=== PATIENT | female | born 1970 | race Caucasian/White ===

== ENCOUNTER → 2017-12-21 10:28 | Outpatient (CLI) | payer OTHER, SELFPAY ==
--- NOTE | 2017-12-21 10:37 | BI_ITS ---
MAMMOGRAPHY - BILATERAL SCREENING REASON FOR EXAM: Female, 47 years old. Routine annual screening examination. PERTINENT HISTORY: Non-contributory. TECHNIQUE: Digital bilateral breast ranjith (3D mammographic acquisition) in the CC and MLO projections. 2-D mediolateral oblique (MLO) and craniocaudad (CC) views of both breasts were obtained. CAD: Full Field Digital Mammography with Computer Added Detection was performed. COMPARISON: No comparison mammograms available at this time. If any prior films become available, an addendum to this report can be generated. FINDINGS: Breast Composition: The breasts are heterogeneously dense, which may obscure small masses. There are no dominant masses or suspicious calcifications. No other significant abnormalities are identified. BI/SCREENING MAMM (CAD), BILAT IMPRESSION: Negative screening mammogram. Yearly followup mammogram recommended. (A) ASSESSMENT CATEGORY: Approximately 10% of breast cancers are not detected by mammography. A normal mammogram should not delay biopsy of a clinically suspicious abnormality. [id number] Electronically Signed: Anival Andino MD at 11:28 EST Tel [phone], Service support ,
== END ==
PROVIDERS: PCP Internal Medicine; Visit Provider Internal Medicine
DX: Z12.31 Encounter for screening mammogram for malignant neoplasm of breast (principal)
CPT/HCPCS: 77063; 77067

== ENCOUNTER 2020-01-02 10:04 | Outpatient (RCR) | payer OTHER, SELFPAY | END 2020-01-13 23:59 | LOC: EMPH 10:04 | PROVIDERS: PCP Internal Medicine; Referring Provider Family Medicine Geriatric Medicine; Visit Provider Family Medicine Geriatric Medicine | DX: Z03.818 Encounter for observation for suspected exposure to other biological agents ruled out (principal) | CPT/HCPCS: 87426 ==

== ENCOUNTER 2020-02-05 10:44 | Outpatient (RCR) | payer OTHER, SELFPAY | END 2020-02-13 23:59 | LOC: EMPH 10:44 | PROVIDERS: PCP Internal Medicine; Referring Provider Family Medicine Geriatric Medicine; Visit Provider Family Medicine Geriatric Medicine | DX: Z03.818 Encounter for observation for suspected exposure to other biological agents ruled out (principal) | CPT/HCPCS: 87426 ==

== ENCOUNTER 2020-02-26 12:23 | Outpatient (RCR) | payer OTHER, SELFPAY | END 2020-03-15 23:59 | LOC: EMPH 12:23 | PROVIDERS: PCP Internal Medicine; Referring Provider Family Medicine Geriatric Medicine; Visit Provider Family Medicine Geriatric Medicine | DX: Z03.818 Encounter for observation for suspected exposure to other biological agents ruled out (principal) | CPT/HCPCS: 87426 ==

== ENCOUNTER 2020-03-26 10:45 | Outpatient (RCR) | payer OTHER, SELFPAY | END 2020-04-12 23:59 | LOC: EMPH 10:45 | PROVIDERS: PCP Internal Medicine; Referring Provider Family Medicine Geriatric Medicine; Visit Provider Family Medicine Geriatric Medicine | DX: Z03.818 Encounter for observation for suspected exposure to other biological agents ruled out (principal) | CPT/HCPCS: 87426 ==

== ENCOUNTER 2020-08-11 10:57 | Outpatient (RCR) | payer OTHER, SELFPAY | END 2020-08-12 23:59 | LOC: EMPH 10:57 | PROVIDERS: PCP Internal Medicine; Visit Provider Family Medicine Geriatric Medicine | DX: Z03.818 Encounter for observation for suspected exposure to other biological agents ruled out (principal) | CPT/HCPCS: 87426 ==

== ENCOUNTER 2020-10-26 12:24 | Outpatient (RCR) | payer OTHER, SELFPAY | END 2020-11-12 23:59 | LOC: EMPH 12:24 | PROVIDERS: PCP Internal Medicine; Referring Provider Family Medicine Geriatric Medicine; Visit Provider Family Medicine Geriatric Medicine | DX: Z03.818 Encounter for observation for suspected exposure to other biological agents ruled out (principal) | CPT/HCPCS: 87426 ==

== ENCOUNTER 2021-02-04 11:34 | Outpatient (RCR) | payer OTHER, SELFPAY | END 2021-02-12 23:59 | LOC: EMPH 11:34 | PROVIDERS: PCP Internal Medicine; Referring Provider Family Medicine Geriatric Medicine; Visit Provider Family Medicine Geriatric Medicine | DX: Z03.818 Encounter for observation for suspected exposure to other biological agents ruled out (principal) | CPT/HCPCS: 87426; 87635; U0003 ==

== ENCOUNTER → 2021-08-20 | Outpatient (CLI) | payer OTHER, SELFPAY ==
[2021-08-20 10:41] LABS: AST(SGOT) 23 U/L (15-37); Alanine Aminotransfer ALT/SGPT 26 U/L (13-56); Albumin, Serum 3.7 g/dL (3.2-5.0); Alkaline Phosphatase 63 U/L (45-117); Anion Gap 6 (5-15); BUN 15 mg/dL (7-18); BUN/Creat Ratio 19.5 RATIO (10-20); Calcium,Total 9.1 mg/dL (8.5-10.1); Chloride 103 mmol/L (98-107); Cholesterol 172 mg/dL (200); Creatinine, Serum 0.77 mg/dL (0.55-1.02); EST Glomerular Filtration Rate 85 mL/min (>60); Est Glom Filt Rate - Afr Amer 103 mL/min (>60); Globulin 3.7 g/dL (2.2-4.2); Glucose 93 mg/dL (74-106); High Density Lipoprotein 48 mg/dL; Potassium 4.1 mmol/L (3.5-5.1); Protein, Total 7.4 g/dL (6.4-8.2); Sodium Level 136 mmol/L (136-145); Triglycerides 236 mg/dL; Very Low Density Lipoprotein 47 mg/dL (5-40)
[2021-08-20 12:34] LABS: Absolute Lymphocyte Count 2.62 X10^3/uL (0.83-4.51); Absolute Neutrophil Count 4.6 X10^3/uL (2.0-7.7); Basophil# 0.08 X10^3/uL; Basophil% 0.9 % (0-1); Eosinophil# 0.48 X10^3/uL; Eosinophils% 5.7 % (0-5); Lymphocyte # 2.62 X10^3/ul (0.83-4.51); Mean Corp Hgb Conc 31.7 g/dL (32-36); Mean Corpuscular Hgb 27.9 pg (27.0-32.0); Mean Platelet Vol. 10.6 fl (6.2-12.0); Monocyte# 0.67 X10^3/uL; Monocyte% 7.9 % (0-10); NRBC Flagged by Analyzer 0 % (0-5); Neutrophil # 4.57 X10^3/uL (2.7-7.7); Platelet Count 258 K/mm3 (150-450); RBC Distribution Width SD 44.6 fl (35.1-43.9); Red Blood Count 4.66 M/mm3 (4.2-5.4); White Blood Count 8.5 K/mm3 (4.4-11.0)
[2021-08-20 16:54] LABS: Vitamin D,25 Hydroxy 28.7 ng/mL
== END | disposition home or self-care (01) ==
LOC: LAB 08:30
PROVIDERS: PCP Internal Medicine; Referring Provider Internal Medicine; Visit Provider Internal Medicine
DX: I48.0 Paroxysmal atrial fibrillation (principal); E78.2 Mixed hyperlipidemia; E55.9 Vitamin D deficiency, unspecified
CPT/HCPCS: 36415; 80053; 80061; 82306; 85025

== ENCOUNTER → 2022-02-25 | Outpatient (CLI) | payer OTHER, SELFPAY ==
[2022-02-25 11:56] LABS: ALB/GLOB Ratio 1.1 RATIO (0.9-2.4); AST(SGOT) 24 U/L (15-37); Alanine Aminotransfer ALT/SGPT 30 U/L (13-56); Albumin, Serum 4.1 g/dL (3.2-5.0); Alkaline Phosphatase 70 U/L (45-117); Anion Gap 6 (5-15); BUN 20 mg/dL (7-18); BUN/Creat Ratio 24.3 RATIO (10-20); Calcium,Total 9.1 mg/dL (8.5-10.1); Chloride 105 mmol/L (98-107); Cholesterol 179 mg/dL (200); Creatinine, Serum 0.82 mg/dL (0.55-1.02); EST Glomerular Filtration Rate 78 mL/min (>60); Est Glom Filt Rate - Afr Amer 94 mL/min (>60); Globulin 3.7 g/dL (2.2-4.2); Glucose 103 mg/dL (74-106); High Density Lipoprotein 53 mg/dL; Potassium 4.1 mmol/L (3.5-5.1); Protein, Total 7.8 g/dL (6.4-8.2); Sodium Level 139 mmol/L (136-145); Thyroid Stim Hormone (TSH) 1.36 uIU/mL (0.358-3.74); Triglycerides 178 mg/dL; Very Low Density Lipoprotein 36 mg/dL (5-40)
== END | disposition home or self-care (01) ==
LOC: LAB 10:45
PROVIDERS: PCP Internal Medicine
DX: E78.2 Mixed hyperlipidemia (principal); I48.0 Paroxysmal atrial fibrillation
CPT/HCPCS: 36415; 80053; 80061; 84443

== ENCOUNTER → 2022-10-19 | Outpatient (CLI) | payer OTHER, SELFPAY ==
--- NOTE | 2022-10-19 07:17 | BI_ITS ---
MAMMOGRAPHY - BILATERAL SCREENING REASON FOR EXAM: Female, 52 years old. Routine annual screening examination. PERTINENT HISTORY: Non-contributory. TECHNIQUE: Digital bilateral breast lashonda (3D mammographic acquisition) in the CC and MLO projections. 2-D mediolateral oblique (MLO) and craniocaudad (CC) views of both breasts were obtained. CAD: Full Field Digital Mammography with Computer Added Detection was performed. COMPARISON: Comparison is made with prior study dated December 21, 2017. FINDINGS: Breast Composition: There are scattered areas of fibroglandular density. There are no dominant masses or suspicious calcifications. Stable small benign-appearing bilateral axillary lymph nodes. No other significant abnormalities are identified. There has been no significant change since the prior study. BI/SCRN MAMM (CAD)W/LASHONDA BILAT IMPRESSION: Stable bilateral screening mammogram. Yearly follow-up mammogram recommended. (A) ASSESSMENT CATEGORY: BIRADS Category 2: Benign. A letter regarding these results will be sent to the patient by the facility within 30 days. Approximately 10% of breast cancers are not detected by mammography. A normal mammogram should not delay biopsy of a clinically suspicious abnormality. [id number] Electronically Signed: Anival Andino MD at 8:48 EDT ,
== END | disposition home or self-care (01) ==
LOC: OPBI 07:15
PROVIDERS: PCP Internal Medicine
DX: Z12.31 Encounter for screening mammogram for malignant neoplasm of breast (principal)
CPT/HCPCS: 77063; 77067

== ENCOUNTER → 2023-03-24 | Outpatient (CLI) | payer OTHER, SELFPAY ==
[2023-03-24 09:03] LABS: Hematocrit 40.9 % (37-47); Hemoglobin 13.3 g/dL (12.0-15.0); Mean Corp Hgb Conc 32.5 g/dL (32-36); Mean Corpuscular Hgb 27.9 pg (27.0-32.0); Mean Corpuscular Volume 85.9 fL (81-99); Mean Platelet Vol. 10.5 fl (6.2-12.0); Platelet Count 237 K/mm3 (150-450); RBC Distribution Width SD 40.8 fl (35.1-43.9); Red Blood Count 4.76 M/mm3 (4.2-5.4)
[2023-03-24 09:35] LABS: BNP,B-Type NATRIURETIC PEPTIDE 17.6 pg/mL (0-100); Vitamin D,25 Hydroxy 28.2 ng/mL
[2023-03-24 10:52] LABS: ALB/GLOB Ratio 1.1 RATIO (0.9-2.4); AST(SGOT) 21 U/L (15-37); Alanine Aminotransfer ALT/SGPT 30 U/L (13-56); Alkaline Phosphatase 75 U/L (45-117); Anion Gap 6 (5-15); BUN 20 mg/dL (7-18); BUN/Creat Ratio 23.8 RATIO (10-20); Calcium,Total 9.1 mg/dL (8.5-10.1); Chloride 108 mmol/L (98-107); Cholesterol 163 mg/dL (200); Creatinine, Serum 0.84 mg/dL (0.55-1.02); EST Glomerular Filtration Rate 76 mL/min (>60); Est Glom Filt Rate - Afr Amer 92 mL/min (>60); Globulin 3.5 g/dL (2.2-4.2); Glucose 106 mg/dL (74-106); High Density Lipoprotein 54 mg/dL; Potassium 3.9 mmol/L (3.5-5.1); Protein, Total 7.5 g/dL (6.4-8.2); Sodium Level 139 mmol/L (136-145); Triglycerides 221 mg/dL; Very Low Density Lipoprotein 44 mg/dL (5-40)
== END | disposition home or self-care (01) ==
LOC: LAB 08:36
PROVIDERS: PCP Internal Medicine
DX: Z00.00 Encounter for general adult medical examination without abnormal findings (principal); I48.0 Paroxysmal atrial fibrillation; E55.9 Vitamin D deficiency, unspecified; I34.0 Nonrheumatic mitral (valve) insufficiency; E78.5 Hyperlipidemia, unspecified
CPT/HCPCS: 36415; 80053; 80061; 82306; 83880; 84443; 85027

== ENCOUNTER → 2024-06-26 | Outpatient (CLI) | payer OTHER, SELFPAY ==
--- NOTE | 2024-06-26 07:32 | BI_ITS ---
EXAM: SCRN MAMM (CAD)W/LASHONDA BILAT 06/26/2024 CLINICAL HISTORY: F, Age 54 y/o , SCREENING TECHNIQUE: Bilateral Diagnostic digital breast tomosynthesis with 2D and 3D images. Computer aided detection. COMPARISON: Prior exam(s) dated 10/19/2022, 12/21/2017. FINDINGS: TISSUE DENSITY: The breast tissue is composed of scattered area of fibroglandular density. Bilateral Breast Mammographic Findings: There are multiple bilateral circumscribed masses which is typically a benign pattern. No significant masses, calcifications or other abnormalities are identified. BI/SCRN MAMM (CAD)W/LASHONDA BILAT IMPRESSION: Right Breast: BIRADS 2 BENIGN FINDING. Left Breast: BIRADS 2 BENIGN FINDING. OVERALL FINAL ASSESSMENT: BIRADS 2 BENIGN FINDING. RECOMMENDATION: Routine annual follow-up in 1 Year A letter with findings and recommendations will be mailed to the patient. Reading Location: [id number]
[2024-06-26 09:02] LABS: Hematocrit 39.1 % (37-47); Hemoglobin 12.7 g/dL (12.0-15.0); Mean Corp Hgb Conc 32.5 g/dL (32-36); Mean Corpuscular Hgb 28.2 pg (27.0-32.0); Mean Corpuscular Volume 86.9 fL (81-99); Mean Platelet Vol. 10.6 fl (6.2-12.0); Platelet Count 258 K/mm3 (150-450); RBC Distribution Width CV 13.8 % (11.6-14.6); RBC Distribution Width SD 43.6 fl (35.1-43.9); White Blood Count 7.8 K/mm3 (4.4-11.0)
[2024-06-26 10:25] LABS: ALB/GLOB Ratio 1.7 RATIO (0.9-2.4); AST(SGOT) 31 U/L (<=31); Alanine Aminotransfer ALT/SGPT 26 U/L (<=34); Albumin, Serum 4.4 g/dL (3.5-5.0); Alkaline Phosphatase 79 U/L (35-104); Anion Gap 11 (5-15); BUN 14 mg/dL (4-19); BUN/Creat Ratio 17.7 RATIO (10-20); Calcium,Total 9.4 mg/dL (7.6-11.0); Carbon Dioxide 22.7 mmol/L (21.0-32.0); Chloride 106 mmol/L (98-108); Cholesterol 143 mg/dL (<=200); EST Glomerular Filtration Rate 88 (>60); Globulin 2.7 g/dL (2.2-4.2); Glucose 102 mg/dL (70-99); High Density Lipoprotein 50 mg/dL; Low Density Lipoprotein Calc. 63 mg/dL; Potassium 4.1 mmol/L (3.3-5.1); Protein, Total 7.1 g/dL (5.9-8.4); Sodium Level 140 mmol/L (133-145); Total Bilirubin 0.55 mg/dL (0.00-1.30); Triglycerides 153 mg/dL; Very Low Density Lipoprotein 31 mg/dL (5-40); Vitamin D,25 Hydroxy 32.2 ng/mL (30-100); cholesterol:hdl ratio screen 2.87
== END | disposition home or self-care (01) ==
PROVIDERS: PCP Internal Medicine; Referring Provider Internal Medicine; Visit Provider Internal Medicine
DX: Z12.31 Encounter for screening mammogram for malignant neoplasm of breast (principal); E78.2 Mixed hyperlipidemia; E66.9 Obesity, unspecified
CPT/HCPCS: 36415; 77063; 77067; 80053; 80061; 82306; 85027

== ENCOUNTER 2024-09-18 13:12 | Inpatient (IN) | payer OTHER, SELFPAY ==
[2024-09-18 13:20] VITALS: BP 121/74; PULSE 62; RESP 16; TEMP 36.7; O2SAT 98; BMI 32.1
[2024-09-18 14:07] VITALS: BMI 32.1
[2024-09-18 16:59] VITALS: BP 121/74; PULSE 62; RESP 16; TEMP 36.7; O2SAT 98
[2024-09-18] MEDS: Senna/Docusate Sodium 1 Tablet 2 TABLET PO (21:27)
[2024-09-18] MEDS: APIXABAN 5 MG TABLET PO (21:29)
[2024-09-18] MEDS: Fluticasone/Salmeterol 232-14 Inhaler 1 PUFF INHALATION (21:29)
[2024-09-18 21:30] VITALS: BP 109/59; PULSE 62; RESP 16; O2SAT 98; BMI 32.1
[2024-09-19] VITALS (14 sets, daily range): BP systolic 93–149; BP diastolic 53–77; PULSE 69–131; RESP 16–18; TEMP 36.2–36.7; O2SAT 95–100; BMI 31.6
--- NOTE | 2024-09-19 05:51 | NURSING ---
Addendum entered by Ines Thomas 09/19/24 06:06: pt denied any other sx when asked and stated that her increased heart rate happened during hs but did not let staff know when this happened Original Note: in to do pt vs this and noted that her heart rate was 120. ap was checked and was noted to be tachy. heart rate was been fluctuating between 111 and 131. rn made aware of pt heart rate
[2024-09-19 05:59] LABS: Hematocrit 38.8 % (37-47); Hemoglobin 12.8 g/dL (12.0-15.0); Immature Granulocytes Count 0.030 X10^3/uL (0.0-0.0); Mean Corp Hgb Conc 33.0 g/dL (32-36); Mean Corpuscular Volume 85.5 fL (81-99); Mean Platelet Vol. 10.3 fl (6.2-12.0); NRBC Flagged by Analyzer 0 % (0-5); Platelet Count 332 K/mm3 (150-450); RBC Distribution Width CV 14.5 % (11.6-14.6); RBC Distribution Width SD 45.0 fl (35.1-43.9); Red Blood Count 4.54 M/mm3 (4.2-5.4); White Blood Count 12.0 K/mm3 (4.4-11.0)
[2024-09-19 06:23] LABS: AST(SGOT) 41 U/L (<=31); Alanine Aminotransfer ALT/SGPT 42 U/L (<=34); Albumin, Serum 4.5 g/dL (3.5-5.0); Alkaline Phosphatase 71 U/L (35-104); Anion Gap 15 (5-15); BUN 17 mg/dL (4-19); BUN/Creat Ratio 22.1 RATIO (10-20); Calcium,Total 9.6 mg/dL (7.6-11.0); Carbon Dioxide 19.5 mmol/L (21.0-32.0); Chloride 104 mmol/L (98-108); Estimated Creatinine Clearance 85.87 ml/min (50-250); Globulin 2.9 g/dL (2.2-4.2); Glucose 116 mg/dL (70-99); Magnesium 2.5 mg/dL (1.5-2.2); Potassium 4.1 mmol/L (3.3-5.1)
--- NOTE | 2024-09-19 06:35 | PCM.HOSP.N ---
Hospitalist Note Patient with palpitations and racing heart. EKG obtained with sinus tachycardia evident with nonspecific ST-T changes however at rate too fast to really delineate. Requested patient be administered Lopressor 5 mg IV x 1 and repeat EKG following.
--- NOTE | 2024-09-19 06:39 | NURSING ---
Patient c/o heart palpitations, tachycardia, hx afib. EKG result sinus tachycardia ST&T wave abnormality, consider inferior ischemia. ST&T wave abnormality, consider anterolateral ischemia. Abnormal ENG. Hospitalist Dr. Nevarez notified of above findings. New order received Lopressor 5mg IV x1 and repeat EKG after heart rate slows. Per pharmacy rep Mikala and restricted med policy, IV metoprolol not able to be administered unless patient on medical tele, unable to administer drug intravenously due to patient not on tele. Dr. Nevarez notified of pharmacy report or restricted drug policy. Received call from Dr. Nevarez, Per Dr. Nevarez, will input oral medication and notify Dr. Costello of new order.
--- NOTE | 2024-09-19 07:00 | EKG12_ITS ---
Test Reason : HEART PALP Blood Pressure : */* mmHG Vent. Rate : 130 BPM Atrial Rate : 130 BPM P-R Int : 148 ms QRS Dur : 90 ms QT Int : 276 ms P-R-T Axes : 39 59 261 degrees QTcB Int : [address] & T wave abnormality, consider inferior ischemia ST & T wave abnormality, consider anterolateral ischemia Abnormal ECG No previous ECGs available Confirmed by JUJU VILLELA, MARC ([id number]), staff editor JENNIFER ADRIAN ([id number]) on 09/19/2024 9:30:01 AM Referred By: SYMONE Confirmed By: MARC MATUTE MD
--- NOTE | 2024-09-19 07:10 | NURSING ---
Received phone call from , updated on patient tachycardia, EKG results and new orders from Hospitalist Dr. Nevarez. No new orders received at this time.
--- NOTE | 2024-09-19 07:44 | EX.PCM.HP.RE ---
HPI - General General Date of Admission: 09/18/24 Date of Service: 09/19/24 Chief Complaint: POST STROKE DEBILITY HPI Narrative MAL FLORES, is a 54 YO F with a PMH of hyperlipidemia, paroxysmal atrial fibrillation (was not on an AC because of vaginal bleeding), depression/ANXIETY, asthma and obesity who presented to [facility] on 09/11/24 with complaints of Left side weakness. She was transferred to [facility] due to concern for LVO. We have no records or documentation from [facility]. At presentation to [facility] her NIH was 2. She had a repeat CTA of the H&N that showed diffuse moderate stenosis involving the petrous and cavernous segments of the right internal carotid artery with large filling defect in the cavernous segment and occlusion involving the supraclinoid segment. There was no additional stenosis or occlusion in the anterior posterior intracranial circulation. 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 There was no high-grade stenosis or occlusion in the neck. CT perfusion showed no perfusion evidence for core infarct or ischemic penumbra. She was admitted to the intensive care unit. She was placed on ASA and Plavix. Crestor was continued but. the calculated LDL was 92 and the dose was increased from 10 mg to 40 mg. She was placed on a heparin drip and later transitioned to Eliquis. She had been on Flecainide for about 1 month and this was continued. Her condition deteriorated following admission and she was take to IR for possible carotid dissection. No dissection was noted but, there was persistent thrombus in the ophthalmic segment of the right internal carotid artery with pseudo occlusion of the proximal right internal carotid artery. The procedure was aborted because there was adequate contralateral intracranial perfusion. CTA later in the day (following IR) demonstrated the clot had migrated to the right M1 and the R ICA was patent. There was evidence of a R MCA infarct. Thrombectomy was contraindicated due to increased risk of perfusion injury greater than 24 hours from last known well. MRI of the brain on 09/12/2024 showed acute infarcts in the right hippocampus, right internal capsule and caudate nucleus. There was no hemorrhagic transformation. There were additional small acute cortical infarcts in the left inferior parietal lobule which appeared somewhat older than infarcts on the right. She had AF with HR's up 10 the 150's and she was started on IV Metoprolol 2.5 mg Q6H. She had bradycardia and hypotension requiring pressors. She tells me that she was taking Lopressor 12.5 mg BID at [facility]. This was not listed on the medications at [facility]. Transthoracic echocardiogram showed the left ventricular size to be normal with normal wall thickness. The ejection fraction was estimated at 65% and there were no wall motion abnormalities. The right ventricle was normal size with normal systolic function. The left atrium was mildly dilated. There was no PFO on the bubble study. Pt was transferred to [facility] acute rehab on 09/18/24 for 3 hours of therapy daily to restore function/independence at or near her level prior to the recent stroke. We did not receive a DC summary and there is no Metoprolol or any other medication to block the AV node on the med list. She was started on topiramate while at [facility] for headaches. Hemoglobin A1c was 5.8 at [facility]. Total cholesterol was 161 and triglycerides were 128. The HDL was 45. The calculated LDL is 92 and that was on 10 mg of Crestor. The dose was increased to 40 mg while she was at [facility]. The calculated LDL on 06/26/2024 was 63. Early this morning she went into AF/flutter with a HR in the 130's. She was given 12.5 mg of PO metoprolol by the hospitalist and the HR remained in the 130's. EKG shows NS ST and T wave changes diffusely. She denies SOB and also denies CP or tightness. She denies lightheadedness. She is aware that the HR is increased. She was given 0.25 mg of Dig IV and the HR slowed a little. She then got 25 mg of PO Lopressor and the HR came down temporarily to 110 but, the BP dropped to 94/68. 30 minutes later the HR was in the 130's again. BP was 110/62. I really do not want the BP lower than this because of recent Emboli/ischemic CVA. [facility] Medical History (Updated 09/19/24 @ 11:[address] Maureen Costello DO) Obesity (BMI 30.0-34.9) Asthma Anxiety and depression History of heavy vaginal bleeding Paroxysmal atrial fibrillation Glucose intolerance Hyperlipidemia Home Medications ?Medication ?Instructions ?Recorded ?Last Taken ?Type albuterol sulfate 90 mcg/actuation 2 puff inhalation Q6H PRN SOB, 09/18/24 Unknown History aerosol inhaler Wheezing apixaban 5 mg tablet (Eliquis) 5 mg PO BID Stroke 09/18/24 09/18/24 History citalopram 10 mg tablet (Celexa) 10 mg PO DAILY depression 09/18/24 09/18/24 History flecainide 100 mg tablet 100 mg PO Q12H arrhythmias 09/18/24 09/18/24 History fluticasone 250 mcg-salmeterol 50 1 inh inhalation Q12H lungs 09/18/24 Unknown History mcg/dose blistr powdr for inhalation (Advair Diskus) montelukast 10 mg tablet 10 mg PO QHS allergies 09/18/24 09/17/24 History (Singulair) rosuvastatin 40 mg tablet (Crestor) 40 mg PO QHS cholesterol 09/18/24 09/17/24 History topiramate 25 mg tablet (Topamax) 25 mg PO BID migraines 09/18/24 09/18/24 History Allergy/AdvReac Type Severity Reaction Status Date / Time Penicillins Allergy Unknown Hives Verified 09/18/24 13:32 Family History (Updated 09/19/24 @ 10:[address] Maureen Costello DO) Mother , with dementia at 78 No problems noted. Father , at 78 YOA due to complications of pancreatectomy for multiple pancreatic cysts No problems noted. Sister Diabetes Kidney disease Social History (Updated 09/19/24 @ 10:[address] Maureen Costello DO) household members: spouse and other details: name is Matthew housing: other details: 2 story house number of children: 2 Smoking Status: Never smoker alcohol intake: current alcohol intake frequency: holidays/special occasions only Homelessness:: Sheltered ROS Review of Systems ROS Unobtainable: Denies due to encephalopathy, due to endotracheal tube, due to mental condition or due to mental status Constitutional Constitutional: Reports fatigue and headache(s) Eyes Eyes: Reports requires corrective lenses and other Details: Had visual field cuts at [facility] but, has resolved and she has no visual field cuts on my exam today ; Denies blurry vision, change in vision, eye pain, loss of vision or ptosis ENT HEENT: Reports headache(s); Denies abnormal hearing, dysphagia, hearing loss, nasal congestion or sore throat Cardiovascular Cardiovascular: Reports fatigue, irregular heart rhythm and racing heartbeat; Denies chest pain, cold extremities, dizziness, dyspnea, dyspnea at rest, lightheadedness or nausea Respiratory/Chest Respiratory/Chest: Denies chest congestion, chest tightness, cough or dyspnea Gastrointestinal Gastrointestinal: Reports constipation; Denies abdominal pain, diarrhea, dyspepsia, hematemesis, hematochezia, nausea or vomiting Genitourinary Genitourinary: Reports other Details: no incontinence ; Denies dysuria, hematuria, nocturia, urinary frequency, urinary hesitancy, urinary incontinence or urinary urgency Musculoskeletal Musculoskeletal: Denies back pain, joint pain, joint swelling or neck pain Integumentary Integumentary: Reports dry skin; Denies acne, alopecia or jaundice Neurologic Neurologic: Reports abnormal speech, focal weakness and headache(s); Denies confusion, disequilibrium, dizziness, paresthesias, restless legs, seizures or tremor(s) Psychiatric Psychiatric: Reports anxiety, depression and other Details: increased anxiety since the stroke and can't turn her brain off. Not sleeping well at night. ; Denies homicidal ideation or suicidal ideation Endocrine Endocrinology: Denies change in body appearance, polydipsia or polyuria Hematologic/Lymphatic Hematologic/Lymphatic: Denies easy bleeding, easy bruising or lymphadenopathy Allergic/Immunologic Allergic/Immunologic: Reports asthma; Denies rhinitis or eczemia Vital Signs Vital Signs Vital Signs: 09/18/24 13:20 09/18/24 15:40 09/18/24 16:59 Temperature 98.1 F 98.1 F Temperature Source Temporal Temporal Pulse Rate 62 62 Pulse Strength Respiratory Rate 16 16 Respiratory Effort Normal Non-Labored Respiratory Depth Normal Respiratory Pattern Normal Blood Pressure 121/74 H 121/74 H Blood Pressure Mean 89 89 Blood Pressure Source Monitor Monitor Blood Pressure Position Semi-Fowlers Semi-Fowlers Blood Pressure Location Right Arm Right Arm Pulse Ox 98 98 Oxygen Delivery Method Room Air Room Air Room Air 09/18/24 21:30 09/18/24 21:30 09/18/24 21:30 Temperature Temperature Source Pulse Rate 62 62 Pulse Strength Normal (2+) Respiratory Rate 16 Respiratory Effort Normal Non-Labored Respiratory Depth Normal Respiratory Pattern Normal Blood Pressure 109/59 L Blood Pressure Mean 75 Blood Pressure Source Monitor Blood Pressure Position Semi-Fowlers Blood Pressure Location Left Arm Pulse Ox 98 Oxygen Delivery Method Room Air Room Air 09/19/24 06:00 09/19/24 06:36 09/19/24 06:57 Temperature 98.0 F Temperature Source Oral Pulse Rate 120 H 120 H Pulse Strength Respiratory Rate 16 Respiratory Effort Respiratory Depth Respiratory Pattern Blood Pressure 125/62 H 125/62 H Blood Pressure Mean 83 Blood Pressure Source Monitor Blood Pressure Position Semi-Fowlers Blood Pressure Location Right Arm Pulse Ox 95 97 Oxygen Delivery Method Room Air Room Air 09/19/24 07:00 Temperature Temperature Source Pulse Rate 69 Pulse Strength Respiratory Rate Respiratory Effort Respiratory Depth Respiratory Pattern Blood Pressure 149/53 H Blood Pressure Mean 85 Blood Pressure Source Monitor Blood Pressure Position Semi-Fowlers Blood Pressure Location Right Arm Pulse Ox Oxygen Delivery Method Weight Weight: 176 lb Body Mass Index (BMI) 32.1 Indicators for Scoring Admitted with or Primary Diagnosis of CVA/Stroke: Yes Hx of CVA/Stroke: No Modified [place] Score MRS Score at time of Evaluation: 4-Moderate/severe disability NIHSS NIHSS 1a. Level of Consciousness: 0 - Alert; keenly responsive 1b. LOC Questions: 0 - Answers BOTH questions correctly 1c. LOC Commands: 0 - Performs BOTH tasks correctly 2. Best Gaze: 0 - Normal 3. Visual: 0 - No visual loss 4. Facial Palsy: 2 - Partial paralysis (total or near-total paralysis of lower face) 5a. Left Arm: 4 - No movement 5b. Right Arm: 0 - No drift; arm holds 90 (or 45) degrees for full 10 seconds 6a. Left Le - Some effort against gravity; (able to flex the quad and lift the knee off the bed and able to extend her leg somewhat. No dorsiflexion or plantar flexion. ) 6b. Right Le - No drift; leg holds 30-degree position for full 5 seconds 7. Limb Ataxia: 0 - Absent (can not test the left side due to severe weakness ) 8. Sensory: 0 - Normal; no sensory loss 9. Best Language: 0 - No aphasia; normal 10. Dysarthria: 1 = [id number] dysarthria; 11. Extinction and Inattention: 0 - No abnormality Total: 9 Stroke Questions Stroke Team Activated: No Physical Exam Const alert and no apparent distress Constitutional Narrative: Oriented to person and place. General Appearance: cooperative, well kempt, well developed and other having some confusion.....thought the slabbing machine operator was her sister. Poor short term memory....can not remember to keep the R arm straight for the IV in the antecubital. HEENT normocephalic, head/scalp atraumatic and hearing grossly normal bilaterally HEENT Narrative: Mucous membranes are very dry Eyes PERRL, EOMs intact bilaterally, conjunctivae normal and no scleral icterus Eyes Narrative: No DC from the eyes and no mattering of the eyelashes. No visual field cuts and no visual extinction. Wears glasses. General Eye: normal appearance of both eyes and normal light reflex Neck supple, no JVD and No nodes Neck Narrative: Good ROM cervical spine. Poor shoulder shrug L shoulder General: trachea midline Chest Chest Narrative: Mild decrease in chest expansion on the left side. Resp normal respiratory effort, normal air movement, no use of accessory muscles and clear to auscultation bilaterally Effort and Inspection: able to speak in complete sentences Cardio Cardio Narrative: Irregular irregular rhythm with tachycardic heart rate. No murmurs, no gallops, no rub. EKG shows atrial fibs/flutter with heart rate in the 130s. GI normal to inspection, nondistended, normoactive bowel sounds, soft to palpation and non-tender GI Narrative: No guarding with palpation. No BM for 1 week per the pt. no CVA tenderness Extremity no calf tenderness and no pedal edema Skin General Skin Exam: no breakdown Rashes: no rashes Neuro Neuro Narrative: Alert, oriented to person and place. Pupils are equal round and reactive to light and accommodation. Extraocular muscles are intact. No visual field cuts. Tongue protrudes on the midline. Intact sensation in the face. Marked left facial droop. Minimal shoulder shrug on the left. Left arm has no movement. No drift with the right arm. Left leg is very weak and she is not able to lift it off the bed but she can lift her knee up and has some flexion of the quadriceps and if she is able to extend the leg so she has some hamstring activity. Cannot dorsiflex or plantarflex. Positive Babinski BL. NO clonus. No drift with the R leg. No ataxia with the right arm or leg. Cannot test for ataxia on the left due to severe weakness and inability to participate with the test. No extinction. No aphasia. Mild to moderate dysarthria. NIHSS score is 9. No urinary incontinence and no urine retention. Having some cognitive problems. Thought the slabbing machine operator was her sister. Poor short term memory. Not able to keep the R arm straight without frequent verbal cues. Has some Left side neglect. Psych cooperative Psych Narrative: Seems anxious. Having some cognitive difficulty. Frequently touching my arm and stroking my arm. Appearance: grossly normal and well kempt Results Lab / Micro Data 09/19/24 05:34 09/19/24 05:34 Labs: Laboratory Results - last 24 hr 09/19/24 05:34: WBC 12.0 H, RBC 4.54, Hgb 12.8, Hct 38.8, MCV 85.5, MCH 28.2, MCHC 33.0, RDW Std Deviation 45.0 H, RDW Coeff of Royce 14.5, Plt Count 332, MPV 10.3, Immature Gran % (Auto) 0.200, Neut % (Auto) 64.2, Lymph % (Auto) 23.8, Pratt % (Auto) 8.2, Eos % (Auto) 3.0, Baso % (Auto) 0.6, Absolute Neuts (auto) 7.7, Absolute Lymphs (auto) 2.86, Nucleated RBC % 0, Sodium 138, Potassium 4.1, Chloride 104, Carbon Dioxide 19.5 L, Anion Gap 15, BUN 17, Creatinine 0.75, Estim Creat Clear Calc 85.87, Est GFR (MDRD) Non-Af 96, BUN/Creatinine Ratio 22.1 H, Glucose 116 H, Calcium 9.6, Phosphorus 4.7 H, Magnesium 2.5 H, Total Bilirubin 0.42, AST 41 H, ALT 42 H, Alkaline Phosphatase 71, Total Protein 7.4, Albumin 4.5, Globulin 2.9, Albumin/Globulin Ratio 1.5 Assessment & Plan Assessment/Plan (1) Physical debility: (2) Left hemiplegia: (3) Facial droop: (4) Cognitive deficits: (5) Acute right MCA stroke: (6) Paroxysmal atrial fibrillation: (7) Hypotension: QUALIFIERS: Hypotension type: unspecified hypotension type Qualified Code(s): I95.9 - Hypotension, unspecified (8) Head pain cephalgia: QUALIFIERS: Headache type: unspecified Headache chronicity pattern: chronic headache Intractability: not intractable Qualified Code(s): R51.9 - Headache, unspecified; G89.29 - Other chronic pain PLAN: On the R side - due to recent large R MCA stroke (9) Dehydration: (10) Hyperlipidemia: QUALIFIERS: Hyperlipidemia type: pure hypercholesterolemia Qualified Code(s): E78.00 - Pure hypercholesterolemia, unspecified (11) Glucose intolerance: PLAN: HGBA1C is 5.8% (12) Perimenopausal: (13) Anxiety and depression: (14) Obesity (BMI 30.0-34.9): (15) History of heavy vaginal bleeding: PLAN: Plan Prior to having any therapy evals she went into AF/flutter with RVR. No telemetry available on acute rehab. BP dropped with PO Lopressor to 94/68. Received 2 500cc boluses of NS. Poor IV access - Midline order placed. D/W Dr. Peñaloza from the hospitalist service and he accepted transfer to the telemetry unit were she can be continuously monitored and seen by cardiology. Will accept her back on acute rehab when the rhythm/rate are stable. Avoid hypotension in light of recent large R MCA stroke. Likely will need to change the antiarrhythmic to something that also blocks the AV node. Does not seem to tolerate Beta blockers well........had bradycardia and hypotension requiring IV pressors at the previous hospital when given 2.5 mg of IV Lopressor. Topimax does not help her SANCHES's and has a lot of adverse side effects so will DC. Schedule Tyenol 1 GM PO Q 8 hours. Charges/Coding Visit Charges Inpatient E&M: 27842 Init Hosp L3
--- NOTE | 2024-09-19 07:53 | EKG12_ITS ---
Test Reason : REPEAT Blood Pressure : */* mmHG Vent. Rate : 132 BPM Atrial Rate : 258 BPM P-R Int : * ms QRS Dur : 108 ms QT Int : 300 ms P-R-T Axes : 33 30 -85 degrees QTcB Int : 444 ms Atrial flutter with variable A-V block with premature ventricular or aberrantly conducted complexes Incomplete right bundle branch block ST & T wave abnormality, consider anterior ischemia Abnormal ECG When compared with ECG of 19-Sep-2024 06:21, MANUAL COMPARISON REQUIRED DATA IS UNCONFIRMED Confirmed by JUJU VILLELA, MARC ([id number]), film editor supervisor JENNIFER ADRIAN ([id number]) on 09/20/2024 5:55:30 AM Referred By: SYMONE Confirmed By: MARC MATUTE MD
[2024-09-19] MEDS: Digoxin 250 MCG/ML Ampul IV (08:18)
[2024-09-19] MEDS: 0.9% Normal Saline (1000mL) 1,000 ML 75 ML IV (08:22)
[2024-09-19] MEDS: Senna/Docusate Sodium 1 Tablet 2 TABLET PO (09:01)
[2024-09-19] MEDS: Fluticasone/Salmeterol 232-14 Inhaler 1 PUFF INHALATION (09:02)
[2024-09-19] MEDS: 0.9% Saline Lock 10 ML Syringe IV (09:02)
[2024-09-19] MEDS: APIXABAN 5 MG TABLET PO (09:02)
[2024-09-19 09:38] LABS: Troponin T High Sensitivity 12 ng/L (<=14)
[2024-09-19 10:54] LABS: Troponin T High Sens 2 HR 11 ng/L (<=14)
--- NOTE | 2024-09-19 15:59 | CHAPLAIN ---
Type of Pastoral Visit ___ Initial Visit ___ Follow-up Visit ___ On-call Visit ___ General Patient Visit ___ Spiritual Assessment ___ Family Conference ___ Bereavement ___ Rapid Response ___ Code Blue ___ Other (describe below) Pastoral Care Referral From ___ Patient ___ Family ___ Nurse ___ Physician ___ Drywall Finisher Foreman ___ Supervisor Rod Placing ___ Other (describe below) Sacrament/Intervention ___ Active listening ___ Anointing ___ Yarsanism ___ Bereavement ___ Communion ___ Irina exploration ___ ___ Life review ___ Prayer ___ Reconciliation ___ Sacrament of Sick ___ Supportive presence ___ Wedding ___ Other (describe below) Pastoral Comments patient was moved from Rehab to [facility]; when found pt she was having patient care and thus a visit was not possible at this time
[2024-09-21 11:25] VITALS: BP 108/67; PULSE 52; RESP 16; TEMP 36.3; O2SAT 98
[2024-09-21 11:30] VITALS: PULSE 52
[2024-09-21 13:40] VITALS: BP 115/57; PULSE 57
[2024-09-21 15:47] VITALS: BMI 31.6
[2024-09-21 16:55] VITALS: BP 104/58; PULSE 56; RESP 17; TEMP 36.8; O2SAT 94
[2024-09-21 22:00] VITALS: BP 106/66; PULSE 60; RESP 18; O2SAT 98
[2024-09-21] MEDS: Fluticasone/Salmeterol 232-14 Inhaler 1 PUFF INHALATION (22:40)
[2024-09-21 22:41] VITALS: BP 106/66; PULSE 60
[2024-09-21] MEDS: APIXABAN 5 MG TABLET PO (22:41)
[2024-09-21] MEDS: 0.9% Saline Lock 10 ML Syringe IV (22:51)
[2024-09-22] VITALS (7 sets, daily range): BP systolic 104–137; BP diastolic 62–81; PULSE 50–56; RESP 16; TEMP 36.3–36.6; O2SAT 96–97; BMI 31.6
[2024-09-22] MEDS: APIXABAN 5 MG TABLET PO ×2 (08:40→22:47)
[2024-09-22] MEDS: Fluticasone/Salmeterol 232-14 Inhaler 1 PUFF INHALATION ×2 (08:41→22:48)
[2024-09-22] MEDS: 0.9% Saline Lock 10 ML Syringe IV (08:43)
--- NOTE | 2024-09-22 10:00 | EKG12_ITS ---
Test Reason : AM EKG Blood Pressure : */* mmHG Vent. Rate : 51 BPM Atrial Rate : 51 BPM P-R Int : 170 ms QRS Dur : 86 ms QT Int : 480 ms P-R-T Axes : 52 25 44 degrees QTcB Int : 442 ms Sinus bradycardia Nonspecific ST abnormality Abnormal ECG When compared with ECG of 20-Sep-2024 05:42, MANUAL COMPARISON REQUIRED DATA IS UNCONFIRMED Confirmed by Sanjeev Ramirez ([id number]), editorial specialist [place] BECERRA ([id number]) on 09/26/2024 6:27:53 AM Referred By: Confirmed By: Sanjeev Ramirez
[2024-09-23] VITALS (10 sets, daily range): BP systolic 97–118; BP diastolic 34–70; PULSE 48–125; RESP 15–16; TEMP 36.2–36.9; O2SAT 93–97; BMI 31.6
[2024-09-23] MEDS: APIXABAN 5 MG TABLET PO ×2 (07:58→21:10)
[2024-09-23] MEDS: Fluticasone/Salmeterol 232-14 Inhaler 1 PUFF INHALATION ×2 (07:59→21:19)
--- NOTE | 2024-09-23 08:32 | PCM.PROGNOTE ---
Subjective Subjective Rajwinder was seen on TEAM rounds today.......her Matthew was present in the room for rounds. Rajwinder was transferred to the acute inpt rehab unit at [facility] on 09/18/24 after having embolic CVA's due to PAF (was on no anticoagulation because of DUB in the past). She had an appt with cardiology to discuss a Watchman procedure but, had a stroke prior to being seen. She was started on Eliquis. She had been on Metoprolol at [facility] but, she became bradycardic and hypotensive and required pressors so this was stopped. Rajwinder was transferred to acute inpt rehab on 09/18/24 for 3 hours of therapy daily to restore function/independence at or near her level prior to CVA. She was transferred to acute rehab from [facility] on Flecainide 100 mg twice daily with nothing to block the AV node should she go into AF with RVR. On the morning of 09/19/24 she went into AF with HR in the 130's. She had received 37.5 mg of Lopressor PO and Dig 250 mcg IV on rehab but, remained in AF/RVR. Rajwinder was transferred to telemetry on 09/19/24 for AF with RVR. On telemetry she received a bolus of IV Cardizem and the systolic BP dropped into the 80's. Cardiology recommended a amiodarone bolus followed by a drip. She converted back to NSR and cardiology recommended restarting Flecainide. Flecainide was restarted and she was placed on Lopressor 12.5 mg BID but, prior to returning to rehab the Lopressor was discontinued since her HR was in the 50's. Orthostatics on rehab were negative and she was asymptomatic. Afebrile VSS -since arrival on rehab the heart rate has ranged from 48-60. Blood pressure has ranged from 97/56 to 137/81. BP tends to be lowest when she first wakes up in the AM. Maintaining appropriate oxygen saturation on RA Oral intake - FOOD good FLUIDS fair Discussed with nursing - no problems that need addressed Reviewed the THERAPY notes Medication list reviewed. All lab from 09/21/24 was personally reviewed. Hemoglobin is stable at 11 and white blood cell count is normal. Platelets are within normal limits. Differential is unremarkable. Sodium was 139 and the potassium was 3.9. The BUN is 19 and the creatinine is 0.8 which is within her baseline. The BUN/creatinine ratio is increased at 23.6. Calcium is within normal limits. Magnesium on 09/20/2024 was 2.1. She feels off balance/wonky but no dizziness or vertigo. Denies CP, Palpitations, SOB, cough, dysphagia, N/V/abd pain. She has a SANCHES. She was placed on Topamax at [facility] for this.......still with a SANCHES....not sure the Topamax is doing anything. Having trouble sleeping at night. This is not a new problem for her. She has been on Celexa for about 3 years. She tells me that it has helped her but, the insomnia has not changed. She has trouble turning her brain off. Tells me that her normal BP is 100/60. Rajwinder tells me that she has not had a period in a few years and she has been told she is in menopause. Her tells me that she snores. Rajwinder sometimes has restless leg. She falls asleep in the car if someone else 9is driving. She often does not feel rested in the AM when arising. She does not fall asleep watching TV or reading a book. She is chronically tired.....which she attributes to not sleepin well at night. She has never had a sleep study. Objective Data Objective Data Vital Signs: Vital Signs Temp Pulse Resp BP Pulse Ox O2 Del Method 98.5 F 60 15 97/56 L 97 Room Air 09/23/24 06:00 09/23/24 08:04 09/23/24 06:00 09/23/24 06:00 09/23/24 06:00 09/23/24 06:00 Oxygen Delivery Method Room Air Weight: 173 lb 4.533 oz Body Mass Index (BMI) 31.6 Intake & Output: Intake and Output for Last 24 Hours 09/21/24 09/22/24 09/23/24 23:59 23:59 23:59 Intake Total 1100 / 1100 1000 / 1000 Output Total 700 / 700 850 / 1150 300 / 300 Balance 400 / 400 150 / -150 -300 / -300 Lab / Micro Data 09/19/24 05:34 09/19/24 05:34 Social Homelessness:: Sheltered Physical Exam Const alert and no apparent distress HEENT normocephalic, head/scalp atraumatic and hearing grossly normal bilaterally HEENT Narrative: Mucous membranes are dry Eyes PERRL, EOMs intact bilaterally, conjunctivae normal and no scleral icterus Eyes Narrative: No DC from the eyes and no mattering of the eyelashes. No visual field cuts and no visual extinction. Wears glasses. Able to close both eyes tightly. Can raise both eyebrows. still with L facial droop. Tongue protrudes on the midline. General Eye: normal appearance of both eyes and normal light reflex Neck supple, no JVD and No nodes Neck Narrative: Good ROM cervical spine. Left shoulder shrug is weak but, it is better than when she was initially admitted to rehab last week. General: trachea midline Chest Chest Narrative: Mild decrease in chest expansion on the left side. Chest: symmetrical chest wall rise Resp normal respiratory effort, normal air movement, no use of accessory muscles and clear to auscultation bilaterally Effort and Inspection: able to speak in complete sentences; Negative for tachypneic or respiratory distress Cardio regular rhythm, no murmurs, no rub and no gallops Cardio Narrative: Current HR is 59. No ectopy GI normal to inspection, nondistended, normoactive bowel sounds, soft to palpation and non-tender GI Narrative: No guarding with palpation. no CVA tenderness Extremity no calf tenderness and no pedal edema Skin General Skin Exam: no breakdown Rashes: no rashes Neuro Neuro Narrative: Alert when talking with me. Looks tired but, has not been sleeping well. still with pronounced L facial droop. Able to close both eyes tightly. She can raise both eyebrows and can furrow her forehead on both sides. Tongue protrudes on the midline. Intact sensation in the face. Left shoulder shrug is weak but better than it was at her first presentation to rehab. very weak hand grasp on the Left.....no movement at admission last week. Starting to get some contraction deformity of the left hand. Some tone in the biceps and triceps. Intact sensation in the LUE. Left leg.....now has the ability to move the left leg a little laterally on the bed. NO plantar or dorsiflexion. Unable to oppose gravity. She was able to move the L foot forward a little when ambulating at the wall rail with PT.....about 25%. Intact sensation of the left leg. No clonus. Psych cooperative Psych Narrative: Seems anxious. Having some cognitive difficulty. Frequently touching my arm and stroking my arm. Appearance: grossly normal and well kempt Assessment & Plan Assessment/Plan (1) Physical debility: (2) Left hemiplegia: (3) Facial droop: (4) Cognitive deficits: (5) Acute right MCA stroke: (6) Paroxysmal atrial fibrillation: (7) Hypotension: QUALIFIERS: Hypotension type: unspecified hypotension type Qualified Code(s): I95.9 - Hypotension, unspecified (8) Head pain cephalgia: QUALIFIERS: Headache type: unspecified Headache chronicity pattern: chronic headache Intractability: not intractable Qualified Code(s): R51.9 - Headache, unspecified; G89.29 - Other chronic pain (9) Dehydration: (10) Hyperlipidemia: QUALIFIERS: Hyperlipidemia type: pure hypercholesterolemia Qualified Code(s): E78.00 - Pure hypercholesterolemia, unspecified (11) Glucose intolerance: (12) Perimenopausal: (13) Anxiety and depression: PLAN: Anxiety>depression. (14) Obesity (BMI 30.0-34.9): (15) History of heavy vaginal bleeding: PLAN: This was a few years ago when she was perimenopausal and she is now in menopause and has not had any vaginal bleeding for a few years. PLAN: Plan 1. Continue therapy 2. Add BuSpar 5 mg p.o. twice daily 3. Increase Celexa to 15 mg daily - recent EKG with a normal QT 4. Cortrosyn stim test in the AM. TSH was normal 5. Discontinue Topamax and start acetaminophen 1 g p.o. every 8 hours for cephalgia 6. Hold metoprolol if the heart rate is less than 50 or the systolic is less than 100. 7. Overnight trending pulse ox tonight. 8. Trazodone 50 mg AT HS tonight. 1. Do you snore loudly? Yes 2. Do you often feel tired, fatigued or sleepy during the day? Yes 3. Has anyone ever observed you stop breathing during sleep? No 4. Do you have (or are you being treated for) HTN? No BMI 31.7 AGE 54 Neck circumference 42.5 cm Gender female Total 4 Charges/Coding Visit Charges Inpatient E&M: 30456 Subs Hosp L2
--- NOTE | 2024-09-23 13:12 | CASEMGMT ---
Social Work IDT met with patient and for Team meeting. Discussed patient's progress in PT/OT/ST/SN/MD. Educated to [facility] insurance with [employer] 09/30 and continued stay is not guaranteed with each review. Explained advanced notice is not required. informed this worker that [facility] has terminated his employer d/t the lack of amount of employees as of October 14, and their employer is searching for a new insurance company. SW requested notify this worker as soon as that is determined, as a new precert will need obtained. SW provided with contact information. Pt/ expressed understanding. Will ReTeam next week. SW will continue to follow for DC planning. Taylor Shea [employer]
[2024-09-24] VITALS (7 sets, daily range): BP systolic 98–117; BP diastolic 56–76; PULSE 50–57; RESP 16–17; TEMP 36.2–36.3; O2SAT 93–97; BMI 31.6
[2024-09-24] MEDS: 0.9% Saline Lock 10 ML Syringe IV ×2 (05:20→21:14)
[2024-09-24] MEDS: Cosyntropin 0.25 MG in 0.9% Normal Saline (Pres. free 4 ML 150 MG IV (07:04)
[2024-09-24] MEDS: APIXABAN 5 MG TABLET PO ×2 (07:46→21:06)
[2024-09-24] MEDS: Fluticasone/Salmeterol 232-14 Inhaler 1 PUFF INHALATION ×2 (07:46→21:06)
--- NOTE | 2024-09-24 08:27 | PN_ITS ---
Subjective Subjective Afebrile VSS -blood pressure over the past 24 hours has ranged from 98/56 to 118/68. The heart rate has ranged from 49-125. The morning dose of Lopressor was held today due to systolic being less than 100. Maintaining appropriate oxygen saturation on RA Oral intake - FOOD good FLUIDS fair to good Discussed with nursing - no problems that need addressed Reviewed the THERAPY notes Medication list reviewed. The AM cortisol was within normal limits at 9.88 and increased to 34.9 following Cortrosyn. This is a negative test for adrenal insufficiency. I reviewed the overnight trending pulse ox. The pO2 was 89% or less 0.65% of the time she was monitored for a total of 3 minutes and 36 seconds. There were no desaturation events for longer than 60 seconds. The heart rate was much more interesting and it ranged from 41-1 31. 24.24% of the time her heart rate ranged from 41-49. 15.48% of the time the heart rate was 120 or above. For an additional 9.3's 6% the heart rate ranged from 110-119. In suspect this was related to AF. Denies lightheadedness today. she also denies CP, SOB, N/V/abd pain. No calf pain or dysuria. She was continent of urine yesterday and has been using the bedpan. She tells me taht she slept last night but, it wsas not a restful sleep. Objective Data Objective Data Vital Signs: Vital Signs Temp Pulse Resp BP Pulse Ox O2 Del Method 97.3 F L 51 L 17 98/56 L 93 Room Air 09/24/24 05:06 09/24/24 07:49 09/24/24 05:06 09/24/24 07:49 09/24/24 05:06 09/24/24 07:55 Oxygen Delivery Method Room Air Weight: 173 lb 4.533 oz Body Mass Index (BMI) 31.6 Intake & Output: Intake and Output for Last 24 Hours 09/22/24 09/23/24 09/24/24 23:59 23:59 23:59 Intake Total 1000 / 1000 880 / 880 405 / 405 Output Total 850 / 1150 1150 / 1150 650 / 650 Balance 150 / -150 -270 / -270 -245 / -245 Lab / Micro Data 09/19/24 05:34 09/19/24 05:34 Social Homelessness:: Sheltered Physical Exam Const Constitutional Narrative: Flat affect. Looks tired and she c/o feeling tired. she is sitting in the recliner and does not appear to be in any distress. General Appearance: cooperative Resp normal respiratory effort and clear to auscultation bilaterally Effort and Inspection: Negative for tachypneic or respiratory distress Cardio regular rhythm and no gallops Cardio Narrative: Bradycardic rate. No ectopy. GI normal to inspection, nondistended, normoactive bowel sounds, soft to palpation and non-tender Extremity no calf tenderness Extremity Narrative: Some edema of the Left hand and the left ankle........related to immobility of the Left side. General Extremity: Negative for clubbing or cyanosis Skin Rashes: no rashes Assessment & Plan Assessment/Plan (1) Physical debility: (2) Left hemiplegia: (3) Facial droop: (4) Cognitive deficits: (5) Acute right MCA stroke: (6) Paroxysmal atrial fibrillation: (7) Hypotension: QUALIFIERS: Hypotension type: unspecified hypotension type Q ualified Code(s): I95.9 - Hypotension, unspecified (8) Head pain cephalgia: QUALIFIERS: Headache type: unspecified Headache chronicity pattern: chronic headache Intractability: not intractable Qualified Code(s): R 51.9 - Headache, unspecified; G89.29 - Other chronic pain (9) Dehydration: (10) Hyperlipidemia: QUALIFIERS: Hyperlipidemia type: pure hypercholesterolemia Q ualified Code(s): E78.00 - Pure hypercholesterolemia, unspecified (11) Glucose intolerance: (12) Anxiety and depression: (13) Obesity (BMI 30.0-34.9): (14) SSS (sick sinus syndrome): PLAN: Plan 1. Continue therapy 2. Discussed the results of the overnight trending pulse ox with cardiology. Recommendation is to [place] Flecainide and Lopressor and start Amiodarone 200 mg BID for 3-4 weeks and then decrease to 200 mg once a day. TSH recently normal. Non-smoker with no hx of chronic Lung disease. 3. STOP BANG score is 4 putting her at high risk for BLANCA. Will order a sleep study at [facility] from rehab. 4. VS q 4 hours while awake. Have nursing check a HR a couple times at night to make sure she is not getting bradycardic with amiodarone. 5. F/U with cardiology followingf DC from rehab to discuss ablation and LAAL. Charges/Coding Visit Charges Inpatient E&M: 89578 Subs Hosp L1
[2024-09-24 08:28] LABS: CORTISOL AM 9.88 ug/dL (6.02-18.40)
[2024-09-24 08:58] LABS: CORTISOL AM 34.90 ug/dL (6.02-18.40)
--- NOTE | 2024-09-24 10:21 | PCM.RU.PYE ---
Admission Information Primary Diagnosis:: Post stroke debility Status Changes from Prescreening?: No changes Identified Actual Problem List:: Skin Intergrity, Pain, ALteration in Cmfrt, Cognitve Impr/Memory Loss, Depression, Bladder Incontinence, Mobility Impaired, Self Care Deficit, BP, Hypotension, Fluid Change-Dehydration and Alteration-Leisure Activ. Potential Problem List:: DVT, Bleeding, Infection, UTI, Aspiration, Falls, Skin Integrity and Depression Risk of Complications DVT: CHERYL Hose and - (Eliquis 5 mg twice daily) Bleeding: Monitor Lab Values, Nursing to Teach Precautions for anti-coagulation therapy., Wound, if applicable, to be assessed every shift. and Stroke patients assessed for lethargy or change in status. Infection: Clinical Staff to Monitor for S/S of infection: and S/S of infection include fever, redness, warmth, etc. Urinary Tract Infection: Monitor for frequency, burning, discomfort, or incontinence. and Nursing will obtain urine sample for urinalysis and C&S when ordered. Aspiration: Clinical staff will monitor for coughing, drooling, congestion., Speech will evaluate swallowing and dsyphasia. and Nursing will monitor patient swallowing during meals. Falls: Patient will be evaluated for Fall Precautions and Patient will be placed on Fall Precautions as indicated per protocol. Skin Breakdown: Nursing will assess skin daily using assessment tool. and Nursing will place on Skin Breakdown Precautions as indicated. Pain: Clinical staff will assess patient's pain level per protocol., Medications will be given, if needed, and the pain level reassessed. and Other methods: Massage, distraction, decrease stimulus, etc. used PRN. Plan of Care Patient requires physician specializing in physical medicine and rehab oversight to provide close medical supervision of rehab issues including: Pain Management, Sleep Problems, Bowel and Bladder, Medical and co-morbidity Management, DVT prophylaxis, Rehabilitation Leadership and Coordination of treatment team Patient needs Physical Therapy: For a minimum of 1 hour and At least 5 out of 7 days Patient needs Physical Therapy to improve:: Mobility, Strengthening, Transfers, Stretching, ROM, Endurance, Stairs, Gait and Balance Patient needs Occupational Therapy: For a minimum of 1 hour and At least 5 out of 7 days Patient needs Occupational Therapy to improve ADL's incl.: Eating, Grooming, Bathing, Dressing, Toileting, Toilet transfers, Community Reintegration, Higher functioning activities, Household tasks, Adaptive Equipment, Splinting and Other activities as determined Patient requires speech therapy: For a minimum of 1 hour and At least 5 out of 7 days Patient requires speech therapy for: Swallowing, Cognition, Language Skills and Compensatory Strategies Patient requires 24/ Rehabilitation Nursing for: Pain Issues, Identifying and preventing risk factors, Monitoring and reporting current medical conditions, Assisting with ambulation, transfer, and all ADL's, Teaching patients about disease process and medications, Family teaching, Providing safe environment, Bowel and Bladder Issues, Skin integrity and Medication Management Patient needs Toy Tra[employer] Accessories Salesperson/ Case Management for: Discharge Planning, Arranging Home Equipment or Services and Family Interventions Patient needs Dietary and Nutrition Services for: Adequate Nutrition, Nutritional Supplements and Nutritional Education Goals Goals Patient will remain: free from falls Patient will perform eating at: MOD I level of assist. Patient will perform bed mobility at: MOD I level of assist. Patient will complete transfers from bed to chair at: Standby Assist. Patient will ambulate: - (50 feet with hemiwalker and min assist x 1) Patient will complete upper body dressing at: - (Supervision/set up) Patient will complete lower body dressing at: - (Contact-guard assist with adaptive equipment as needed) Patient will complete toilet transfer at: - (Contact-guard assist) Patient will complete toileting at: - (Contact-guard assist) Patient will perform bathing at: - (Upper body bathing at standby assist and lower body bathing at contact-guard assist for adaptive equipment as needed.) Patient will perform Tub/Shower transfer at: - (Contact-guard assist using DME as needed) Patient will complete grooming at: Standby Assist. Patient will complete home management skills at: MOD I level of assist. Patient will achieve: - (1 curb step at contact-guard assist with least restrictive device) Patient will have pain level of: of 3 or less Patient's skin will: remain intact Patient will receive: adequate nutrition. Discharge Planning Pt Prognosis for Sig. Practical Improv. w/in Reasonable Time: Good Estimated Length of stay (days): 28 Anticipated D/C Destination: TBD Was Preadmission Assessment Accurate?: Yes
--- NOTE | 2024-09-24 15:44 | CHAPLAIN ---
Type of Pastoral Visit ___ Initial Visit _x__ Follow-up Visit ___ On-call Visit ___ General Patient Visit ___ Spiritual Assessment ___ Family Conference ___ Bereavement ___ Rapid Response ___ Code Blue ___ Other (describe below) Pastoral Care Referral From _x__ Patient ___ Family ___ Nurse ___ Physician ___ Plow And Boring Machine Tender ___ Diploma Dental Assistant ___ Other (describe below) Sacrament/Intervention ___ Active listening ___ Anointing ___ Baptist ___ Bereavement ___ Communion ___ Irina exploration ___ ___ Life review ___ Prayer ___ Reconciliation ___ Sacrament of Sick _x__ Supportive presence ___ Wedding ___ Other (describe below) Pastoral Comments patient was seen last week in PCU; pt is resting after her day of therapy; pt is very tired; she is pleasant and denies any needs or concerns; offered to let her rest from her day and she accepted
[2024-09-25 00:30] VITALS: PULSE 54; O2SAT 94
--- NOTE | 2024-09-25 01:12 | NURSING ---
09/25- STAFF IN ROOM TO CHECK HR @ 00:30. HR- 54 AND SpO2 = 94% ON 2L O2.
[2024-09-25 05:30] VITALS: BMI 32.0
[2024-09-25 05:53] LABS: Mucous, Urine 0 SEEN /hpf (<or=2+)
[2024-09-25 05:57] LABS: Glucose, Dipstick Normal (Normal); Ketone-Dipstick Negative (Negative); Leukocyte Esterase-Dipstick Negative /ul (Negative); Nitrite-Dipstick Negative (Negative); Occult Blood-Urine 10 /ul (Negative); Protein-Dipstick 15 mg/dl (Negative); Specific Gravity, Urine 1.025 (1.002-1.030); Urine Bilirubin Dipstick Negative (Negative)
[2024-09-25 06:00] VITALS: BP 99/53; PULSE 69; RESP 16; TEMP 36.7; O2SAT 98
[2024-09-25 06:29] LABS: Color, Urine Yellow (Yellow)
[2024-09-25 06:31] LABS: Red Blood Cells-Urine 0-5 SEEN /hpf (0-5); Squamous Epithelial Cells - UA 0-5 SEEN /hpf (5-10)
[2024-09-25] MEDS: Fluticasone/Salmeterol 232-14 Inhaler 1 PUFF INHALATION ×2 (08:27→20:45)
[2024-09-25] MEDS: APIXABAN 5 MG TABLET PO ×2 (08:27→20:44)
--- NOTE | 2024-09-25 11:56 | CASEMGMT ---
Social Work SW completed advance directives with patient. Original and copy provided to pt. Copies placed on chart and tray for HIM. Taylor Shea CHIROPRACTIC TEACHER [employer]
[2024-09-25] MEDS: 0.9% Saline Lock 10 ML Syringe IV (13:53)
[2024-09-25 16:22] VITALS: BMI 32.0
[2024-09-25 18:00] VITALS: BP 97/53; PULSE 59; RESP 16; TEMP 37; O2SAT 97
[2024-09-25 20:30] VITALS: PULSE 59; O2SAT 97; BMI 32.0
[2024-09-26 00:30] VITALS: BP 111/63; PULSE 57; RESP 15; TEMP 36.3; O2SAT 96
[2024-09-26 05:00] VITALS: BP 94/56; PULSE 72; RESP 15; TEMP 36.8; O2SAT 98
[2024-09-26] MEDS: APIXABAN 5 MG TABLET PO ×2 (08:27→20:45)
[2024-09-26] MEDS: Fluticasone/Salmeterol 232-14 Inhaler 1 PUFF INHALATION ×2 (08:28→20:46)
[2024-09-26 13:14] VITALS: BMI 32.0
--- NOTE | 2024-09-26 14:34 | PN_ITS ---
Subjective Subjective Afebrile VSS -recorded heart rates for the past 24 hours have ranged from 49 at midnight last night to 72 this morning. Blood pressure is ranged from 94/56 to 111/63 and she denies lightheadedness. Maintaining appropriate oxygen saturation on RA Oral intake - FOOD she is eating 50 to 100% of all her meals and has never refused a meal. FLUIDS fair at best. Fluid intake yesterday was 1010 cc. The last bowel movement was 09/23/2024 and she denies feeling constipated. She does say that she feels some rumbling in her abdomen and feels like she may have a bowel movement later today. Postvoid residuals are all 100 or less. Discussed with nursing - no problems that need addressed Reviewed the THERAPY notes Medication list reviewed. She is c/o having a hard time sleeping......has gotten 50 mg of Trazodone the past 3 nights. She thinks her anxiety is better with the addition of Buspar to the drug regimen. She denies feeling depressed today. She denies lightheadedness, dysuria, chest pain, shortness of breath, cough, abdominal pain and calf pain. She has felt like her heart was racing a few times. I told her to call nursing if she feels like it is racing so we can get a Pulse/EKG. Objective Data Objective Data Vital Signs: Vital Signs Temp Pulse Resp BP Pulse Ox O2 Del Method O2 Flow Rate 98.2 F 72 15 94/56 L 98 Nasal Cannula 2 09/26/24 05:00 09/26/24 05:00 09/26/24 05:00 09/26/24 05:00 09/26/24 05:00 09/26/24 05:00 09/25/24 06:00 Oxygen Flow Rate (L/min) 2 Oxygen Delivery Method Nasal Cannula Weight: 174 lb 2.643 oz Body Mass Index (BMI) 32.0 Intake & Output: Intake and Output for Last 24 Hours 09/24/24 09/25/24 09/26/24 23:59 23:59 23:59 Intake Total 1355 / 1355 1010 / 1010 440 / 440 Output Total 1350 / 1350 575 / 575 350 / 350 Balance 5 / 5 435 / 435 90 / 90 Lab / Micro Data 09/19/24 05:34 09/19/24 05:34 Social Homelessness:: Sheltered Physical Exam Const General Appearance: cooperative Resp normal respiratory effort and clear to auscultation bilaterally Cardio regular rhythm and no gallops Cardio Narrative: Heart rate is within normal limits at the time of my exam. No ectopy. GI normal to inspection, nondistended, normoactive bowel sounds, soft to palpation and non-tender Extremity no calf tenderness Extremity Narrative: Some edema of the Left hand and the left ankle........related to immobility of the Left side. General Extremity: Negative for clubbing or cyanosis Skin Rashes: no rashes Psych Psych Narrative: She is making eye contact with me. Joking with staff. Denies depression and anxiety is better and she does not think she needs an increase in the Buspar. I do not feel like she is overwhelmingly depressed. she is cooperating with therapy and working hard to get better. She has some frustration that she is not getting better faster but, she knows it will take time. She is not restless or fidgety. NO psychomotor slowing. Not irritable and no tears. Assessment & Plan Assessment/Plan (1) Physical debility: (2) Left hemiplegia: (3) Facial droop: (4) Cognitive deficits: (5) Acute right MCA stroke: (6) Paroxysmal atrial fibrillation: (7) Hypotension: QUALIFIERS: Hypotension type: unspecified hypotension type Q ualified Code(s): I95.9 - Hypotension, unspecified (8) Head pain cephalgia: QUALIFIERS: Headache type: unspecified Headache chronicity pattern: chronic headache Intractability: not intractable Qualified Code(s): R 51.9 - Headache, unspecified; G89.29 - Other chronic pain (9) Dehydration: (10) Hyperlipidemia: QUALIFIERS: Hyperlipidemia type: pure hypercholesterolemia Q ualified Code(s): E78.00 - Pure hypercholesterolemia, unspecified (11) Glucose intolerance: (12) Anxiety and depression: (13) Obesity (BMI 30.0-34.9): (14) SSS (sick sinus syndrome): PLAN: Plan 1. Continue therapy 2. Increase trazodone to 100 mg QHS 3. CBC and BMP in the a.m. 4. UA was negative for infection yesterday 5. She is to notify nursing if she feels like her heart is racing and they will take a pulse and/or get an EKG 6. Will likely repeat an overnight trending pulse ox Monday or Monday night. Charges/Coding Visit Charges Inpatient E&M: 16887 Subs Hosp L1
[2024-09-26] MEDS: Senna/Docusate Sodium 1 Tablet 2 TABLET PO ×2 (15:00→20:46)
[2024-09-26 18:00] VITALS: BP 137/73; PULSE 83; RESP 16; TEMP 37.1; O2SAT 98
[2024-09-26 20:30] VITALS: BP 119/70; PULSE 57; RESP 16; O2SAT 97; O2SAT 98; BMI 32.0
[2024-09-27 06:00] VITALS: BP 91/55; PULSE 55; RESP 15; TEMP 36.3; O2SAT 97
[2024-09-27 07:20] LABS: Hematocrit 33.7 % (37-47); Hemoglobin 11.0 g/dL (12.0-15.0); Mean Corp Hgb Conc 32.6 g/dL (32-36); Mean Corpuscular Volume 85.3 fL (81-99); Mean Platelet Vol. 9.8 fl (6.2-12.0); Platelet Count 330 K/mm3 (150-450); RBC Distribution Width CV 14.1 % (11.6-14.6); RBC Distribution Width SD 43.8 fl (35.1-43.9); Red Blood Count 3.95 M/mm3 (4.2-5.4); White Blood Count 9.2 K/mm3 (4.4-11.0)
[2024-09-27 07:42] LABS: Anion Gap 12 (5-15); BUN 21 mg/dL (4-19); BUN/Creat Ratio 28.6 RATIO (10-20); Calcium,Total 9.2 mg/dL (7.6-11.0); Carbon Dioxide 22.5 mmol/L (21.0-32.0); Chloride 104 mmol/L (98-108); Estimated Creatinine Clearance 85.41 ml/min (50-250); Glucose 100 mg/dL (70-99); Potassium 3.8 mmol/L (3.3-5.1)
[2024-09-27] MEDS: APIXABAN 5 MG TABLET PO ×2 (08:37→20:43)
[2024-09-27] MEDS: Fluticasone/Salmeterol 232-14 Inhaler 1 PUFF INHALATION ×2 (08:37→20:42)
--- NOTE | 2024-09-27 09:54 | PN_ITS ---
Subjective Subjective Afebrile Blood pressure this a.m. at 06 100 was 91/55 with a heart rate of 55. Blood pressure tends to be lowest early in the a.m. and increases when she is awake. The blood pressure yesterday at 6 PM was 137/73 and prior to bedtime it was 119/70. Heart rate is ranged from 55-83 over the past 24 hours. Good appetite. Fluid intake yesterday was 1280 cc. All lab drawn this morning was personally reviewed. CBC shows a normal white blood cell count of 9.2. Hemoglobin is stable at 11 and she has normochromic normocytic indices. Sodium is normal at 138 and the potassium is 3.8. The BUN is 21 with a creatinine of 0.75 which is within her baseline. GFR is 96. Fasting blood sugar this morning is 100. Calcium is normal. Rajwinder denies lightheadedness, cephalgia, cough, shortness of breath, chest pain, nausea/vomiting/abdominal pain, dysuria and calf pain. She has no complaints today. She denies feeling depressed or anxious. She tells me that she slept well last night with the increase in trazodone to 100 mg. Objective Data Objective Data Vital Signs: Vital Signs Temp Pulse Resp BP Pulse Ox O2 Del Method O2 Flow Rate 97.3 F L 55 L 15 91/55 L 97 Nasal Cannula 2 09/27/24 06:00 09/27/24 06:00 09/27/24 06:00 09/27/24 06:00 09/27/24 06:00 09/27/24 06:00 09/27/24 06:00 Oxygen Flow Rate (L/min) 2 Oxygen Delivery Method Nasal Cannula Weight: 174 lb 2.643 oz Body Mass Index (BMI) 32.0 Intake & Output: Intake and Output for Last 24 Hours 09/25/24 09/26/24 09/27/24 23:59 23:59 23:59 Intake Total 1010 / 1010 1280 / 1280 340 / 340 Output Total 575 / 575 1000 / 1000 350 / 350 Balance 435 / 435 280 / 280 -10 / -10 Lab / Micro Data 09/27/24 07:04 09/27/24 07:04 Labs: Laboratory Results - last 24 hr 09/27/24 07:04: WBC 9.2, RBC 3.95 L, Hgb 11.0 L, Hct 33.7 L, MCV 85.3, MCH 27.8, MCHC 32.6, RDW Std Deviation 43.8, RDW Coeff of Royce 14.1, Plt Count 330, MPV 9.8, Sodium 138, Potassium 3.8, Chloride 104, Carbon Dioxide 22.5, Anion Gap 12, BUN 21 H, Creatinine 0.75, Estim Creat Clear Calc 85.41, Est GFR (MDRD) Non-Af 96, BUN/Creatinine Ratio 28.6 H, Glucose 100 H, Calcium 9.2 Social Homelessness:: Sheltered Physical Exam Const General Appearance: cooperative Resp normal respiratory effort and clear to auscultation bilaterally Cardio regular rhythm and no gallops Cardio Narrative: Heart rate is within normal limits at the time of my exam. No ectopy. GI normal to inspection, nondistended, normoactive bowel sounds, soft to palpation and non-tender Extremity no calf tenderness Extremity Narrative: Some edema of the Left hand and the left ankle........related to immobility of the Left side. Assessment & Plan Assessment/Plan (1) Physical debility: (2) Left hemiplegia: (3) Facial droop: (4) Cognitive deficits: (5) Acute right MCA stroke: (6) Paroxysmal atrial fibrillation: (7) Hypotension: QUALIFIERS: Hypotension type: unspecified hypotension type Q ualified Code(s): I95.9 - Hypotension, unspecified (8) Head pain cephalgia: QUALIFIERS: Headache chronicity pattern: chronic headache H eadache type: unspecified Intractability: not intractable Qualified Code(s): R 51.9 - Headache, unspecified; G89.29 - Other chronic pain (9) Dehydration: (10) Hyperlipidemia: QUALIFIERS: Hyperlipidemia type: pure hypercholesterolemia Q ualified Code(s): E78.00 - Pure hypercholesterolemia, unspecified (11) Glucose intolerance: PLAN: HGBA1C 5.8%. (12) Anxiety and depression: PLAN: On Citalopram and Buspar. Citalopram increased from 10 mg daily to 15 mg daily. (13) Obesity (BMI 30.0-34.9): (14) SSS (sick sinus syndrome): PLAN: Suspected. HR varied from 40-131 on Flecainide and Lopressor 12.5. mg BID. (15) Orthostatic hypotension: PLAN: Plan 1. Continue therapy 2. Orthostatic vital signs today - they were + the systolic dropped from 128/80 lying down to 97/63 standing up. 3. Repeat and over night trending pulse ox Monday night. 4. Continue trazodone 100 mg p.o. at bedtime. 5. Will try and discontinue BuSpar prior to discharge since we have increased the Celexa and added trazodone. 6. Recheck a BMP and an H&H on Monday 7. Recheck orthostatics in the AM. IV fluids to hydrate tonight. Encouraged her to increase her fluid intake and avoid caffeine.
[2024-09-27 12:04] VITALS: BP 102/58; BP 128/80; BP 97/63; PULSE 108; PULSE 70; PULSE 77
[2024-09-27 17:00] VITALS: BMI 32.0
[2024-09-27 18:00] VITALS: BP 131/64; PULSE 52; RESP 16; TEMP 36.9; O2SAT 98
[2024-09-27] MEDS: 0.9% Normal Saline (1000mL) 1,000 ML 500 ML IV (18:46)
[2024-09-27] MEDS: 0.9% Saline Lock 10 ML Syringe IV (18:46)
[2024-09-27 20:00] VITALS: BP 136/58; PULSE 115; RESP 18; O2SAT 98; BMI 32.0
--- NOTE | 2024-09-27 22:30 | NURSING ---
1999 went to do pts clinical findings and noted that her heart rate was irregular running between 110's -120's. rn made aware and staff returned to pts room. when asked if she felt and sx pt stated that she felt her heart beating fast; staff questioned pt how long she had felt is beating fast, pt responded about an hour. pts heart rate had already been irregular for 10 minutes when staff was assessing pt. 2014 rn to check pt and pt heart rate is now regular and 64. pt again was encourage to tell staff when her heart rate starts increasing, pt knowledge but stated she didn't want to bother anyone when everyone was so busy. staff stressed the importance of telling us when this was happening and that she was not bothering us. other vs are stable
[2024-09-28] VITALS (7 sets, daily range): BP systolic 97–150; BP diastolic 46–57; PULSE 54–67; RESP 15–17; TEMP 36.7–37.1; O2SAT 94–99; BMI 32.0
[2024-09-28] MEDS: 0.9% Normal Saline (1000mL) 1,000 ML 75 ML IV (02:18)
[2024-09-28] MEDS: Fluticasone/Salmeterol 232-14 Inhaler 1 PUFF INHALATION ×2 (08:46→21:26)
[2024-09-28] MEDS: APIXABAN 5 MG TABLET PO ×2 (08:46→21:26)
[2024-09-28] MEDS: Senna/Docusate Sodium 1 Tablet 2 TABLET PO (21:27)
[2024-09-28] MEDS: 0.9% Saline Lock 10 ML Syringe IV (22:04)
[2024-09-29] VITALS (8 sets, daily range): BP systolic 94–106; BP diastolic 46–62; PULSE 50–74; RESP 16–18; TEMP 36.7–37.2; O2SAT 94–99; BMI 32.0
[2024-09-29] MEDS: APIXABAN 5 MG TABLET PO ×2 (08:34→21:36)
[2024-09-29] MEDS: Fluticasone/Salmeterol 232-14 Inhaler 1 PUFF INHALATION ×2 (08:34→21:37)
[2024-09-29] MEDS: Senna/Docusate Sodium 1 Tablet 2 TABLET PO ×2 (08:35→21:37)
[2024-09-29] MEDS: 0.9% Saline Lock 10 ML Syringe IV (14:27)
[2024-09-30 06:08] LABS: Hematocrit 31.6 % (37-47); Hemoglobin 10.1 g/dL (12.0-15.0)
[2024-09-30 06:10] VITALS: BP 106/63; PULSE 51; RESP 17; TEMP 36.8; O2SAT 97
[2024-09-30] MEDS: 0.9% Saline Lock 10 ML Syringe IV (06:11)
[2024-09-30 06:32] LABS: Anion Gap 10 (5-15); BUN 20 mg/dL (4-19); BUN/Creat Ratio 26.3 RATIO (10-20); Calcium,Total 8.9 mg/dL (7.6-11.0); Carbon Dioxide 23.2 mmol/L (21.0-32.0); Chloride 108 mmol/L (98-108); Estimated Creatinine Clearance 85.41 ml/min (50-250); Glucose 94 mg/dL (70-99); Potassium 4.0 mmol/L (3.3-5.1)
[2024-09-30] MEDS: Fluticasone/Salmeterol 232-14 Inhaler 1 PUFF INHALATION ×2 (07:48→21:27)
[2024-09-30] MEDS: Senna/Docusate Sodium 1 Tablet 2 TABLET PO (07:48)
[2024-09-30] MEDS: APIXABAN 5 MG TABLET PO ×2 (07:49→21:27)
--- NOTE | 2024-09-30 08:31 | PN_ITS ---
Subjective Subjective Rajwinder was seen on team rounds today. Afebrile VSS -heart rate over the past 24 hours while awake has ranged from 50-74. Blood pressure has ranged from 95/46 to 106/63. Maintaining appropriate oxygen saturation on RA Oral intake - FOOD good FLUIDS poor Discussed with nursing - no problems that need addressed Reviewed the THERAPY notes Medication list reviewed. I reviewed the results of the overnight trending pulse ox last night and she had no hypoxemia. Oxygen saturation ranged from 97 to 100%. The heart rate ranged [id number]. It ranged from 32-39 0.83% of the time she was monitored. 80% of the time she was 50-59%. No HR > 65. All lab from today was personally reviewed. Hemoglobin is 10.1, down from 11 on 09/27/2024. Sodium is 141 and the potassium is 4.0. The BUN is 20 and the creatinine is stable at 0.75. Urine culture from 09/25/2024 had no growth. She is c/o some lightheadedness. She is sleeping well at night. She denies chest pain, shortness of breath, palpitations, nausea/vomiting/abdominal pain, dysuria and calf pain. I reviewed the EKG done today. The QT is 496 with a QTc of 443.. No QT prolongation. She is sinus bradycardia with a heart rate of 48 bpm. There are nonspecific ST and T wave changes. No ST elevation. Objective Data Objective Data Vital Signs: Vital Signs Temp Pulse Resp BP Pulse Ox O2 Del Method O2 Flow Rate 98.3 F 51 L 17 106/63 97 Room Air 2 09/30/24 06:10 09/30/24 06:10 09/30/24 06:10 09/30/24 06:10 09/30/24 06:10 09/30/24 08:04 09/29/24 23:05 Oxygen Flow Rate (L/min) 2 Oxygen Delivery Method Room Air Weight: 174 lb 2.643 oz Body Mass Index (BMI) 32.0 Intake & Output: Intake and Output for Last 24 Hours 09/28/24 09/29/24 09/30/24 23:59 23:59 23:59 Intake Total 2811.25 / 2811.25 880 / 880 100 / 100 Output Total 1925 / 1925 1100 / 1100 500 / 500 Balance 886.25 / 886.25 -220 / -220 -400 / -400 Lab / Micro Data 09/30/24 05:52 09/30/24 05:52 Labs: Laboratory Results - last 24 hr 09/30/24 05:52: Hgb 10.1 L, Hct 31.6 L, Sodium 141, Potassium 4.0, Chloride 108, Carbon Dioxide 23.2, Anion Gap 10, BUN 20 H, Creatinine 0.75, Estim Creat Clear Calc 85.41, Est GFR (MDRD) Non-Af 97, BUN/Creatinine Ratio 26.3 H, Glucose 94, Calcium 8.9 Micro: Microbiology 09/25/24 05:40 Urine Catheter - Catheter Urine Culture - Final Culture exhibits no growth. Social Homelessness:: Sheltered Physical Exam Const alert and no apparent distress Constitutional Narrative: Does not make good eye contact. General Appearance: cooperative HEENT Mouth: dry mucous membranes Resp normal respiratory effort and clear to auscultation bilaterally Cardio regular rhythm and no gallops Cardio Narrative: Bradycardic today this AM when I initially saw her but, in the afternoon when I went back the HR was 70. No ectopy. Rate: bradycardia GI normal to inspection, nondistended, normoactive bowel sounds, soft to palpation and non-tender Extremity no calf tenderness Skin Rashes: no rashes Psych Psych Narrative: Flat affect. Suspect this is her baseline. She is making jokes with staff and interacting. Sleeping well at night. Does not appear anxious. No tears and no irritability. She is frustrated and wnats to get home but, realizes her works fulltime and she would need assistance to go home at this point Assessment & Plan Assessment/Plan (1) Physical debility: (2) Left hemiplegia: (3) Facial droop: (4) Cognitive deficits: (5) Acute right MCA stroke: (6) Paroxysmal atrial fibrillation: (7) Hypotension: QUALIFIERS: Hypotension type: unspecified hypotension type Q ualified Code(s): I95.9 - Hypotension, unspecified (8) Head pain cephalgia: QUALIFIERS: Headache type: unspecified Headache chronicity pattern: chronic headache Intractability: not intractable Qualified Code(s): R 51.9 - Headache, unspecified; G89.29 - Other chronic pain (9) Dehydration: (10) Hyperlipidemia: QUALIFIERS: Hyperlipidemia type: pure hypercholesterolemia Q ualified Code(s): E78.00 - Pure hypercholesterolemia, unspecified (11) Glucose intolerance: (12) Anxiety and depression: (13) Obesity (BMI 30.0-34.9): (14) SSS (sick sinus syndrome): (15) Orthostatic hypotension: PLAN: Plan 1. Continue therapy 2. Decrease amiodarone to 200 mg once daily and hold the dose for Monday and Monday. Restart on . I suspect she has SSS and she made need a PM to keep the HR normal so we can use amiodarone or another antiarrhythmic to prevent AF/control HR when she is in AF. Will discuss with cardiology 3. Check an EKG for QT interval. - No QT prolongation. 4. Check orthostatics today - they were negative. 5. Check Hemoccult stool - It was negative. Charges/Coding Visit Charges Inpatient E&M: 94220 Subs Hosp L2
--- NOTE | 2024-09-30 08:31 | EKG12_ITS ---
Test Reason : AIB Blood Pressure : */* mmHG Vent. Rate : 48 BPM Atrial Rate : 48 BPM P-R Int : 142 ms QRS Dur : 88 ms QT Int : 496 ms P-R-T Axes : 63 26 20 degrees QTcB Int : 443 ms Sinus bradycardia Low voltage QRS Nonspecific T wave abnormality Abnormal ECG When compared with ECG of 22-Sep-2024 05:57, No significant change was found Confirmed by JUJU VILLELA, MARC ([id number]), editor & co founder JENNIFER ADRIAN ([id number]) on 10/01/2024 6:13:30 AM Referred By: SYMONE Confirmed By: MARC MATUTE MD
[2024-09-30 08:36] VITALS: BP 106/49; BP 118/69; BP 119/54; PULSE 51; PULSE 60
--- NOTE | 2024-09-30 13:20 | CASEMGMT ---
Social Work IDT met with patient and for Team meeting. Discussed patient's progress in PT/OT/ST/SN/MD. Educated to [facility] insurance with [employer] 09/30 and continued stay is not guaranteed with each review. SW provided education and brochure on stroke support group. expressed no concerns with taking off work and being able to take care of pt at home. Dtr is at college. Will ReTeam next week. SW will continue to follow for DC planning. Taylor Shea SKI TOW OPERATOR FLOORHAND
[2024-09-30 15:59] VITALS: BMI 32.0
[2024-09-30 17:59] VITALS: BP 134/65; PULSE 50; RESP 16; TEMP 36.6; O2SAT 97
[2024-10-01] VITALS (8 sets, daily range): BP systolic 110–148; BP diastolic 56–90; PULSE 47–109; RESP 16; TEMP 36.6–37.1; O2SAT 92–98; BMI 32.0
--- NOTE | 2024-10-01 07:30 | PN_ITS ---
Subjective Subjective Afebrile Heart rate is ranged from 48-102 over the past 24 hours. Blood pressure is ranged from 106/49 to 134/65. Maintaining appropriate oxygen saturation on room air. Weight is stable. Rajwinder tells me today that prior to taking Celexa for the past 3 years she took Sertraline 50 mg daily.......this was stopped due to GI irritability. She has never had counselling. She is sleeping well with Trazodone 100 mg at HS.......has had chronic insomnia for quite some time. Denies cephalgia, lightheadedness, CP, SOB, calf pain, dysuria. No N/V/abd pain. Will DC Celexa due to the drug interaction between Citalopram and Amiodarone and also because it has not been effective in controlling anxiety/depression/insomnia.........Increased risk for QT prolongation. I would like to continue amiodarone and Trazodone. The Trazodone is low dose and the EKG yesterday did not show QT prolongation. Rajwinder is agreeable to a trial of Wellbutrin for depression. We discussed potential SE's. Wellbutrin can lower seizure threshold and she had a recent stroke so will monitor closely. She is also aware it can cause SANCHES and constipation. Objective Data Objective Data Vital Signs: Vital Signs Temp Pulse Resp BP Pulse Ox O2 Del Method O2 Flow Rate 98.7 F 48 L 16 110/56 L 96 Nasal Cannula 2 10/01/24 06:00 10/01/24 06:00 10/01/24 06:00 10/01/24 06:00 10/01/24 06:00 10/01/24 06:00 10/01/24 06:00 Oxygen Flow Rate (L/min) 2 Oxygen Delivery Method Nasal Cannula Weight: 174 lb 2.643 oz Body Mass Index (BMI) 32.0 Intake & Output: Intake and Output for Last 24 Hours 09/29/24 09/30/24 10/01/24 23:59 23:59 23:59 Intake Total 880 / 880 1440 / 1440 400 / 400 Output Total 1100 / 1100 1600 / 1600 600 / 600 Balance -220 / -220 -160 / -160 -200 / -200 Lab / Micro Data 09/30/24 05:52 09/30/24 05:52 Micro: Microbiology 09/30/24 13:15 Stool Stool Occult Blood (FILI) - Final 09/25/24 05:40 Urine Catheter - Catheter Urine Culture - Final Culture exhibits no growth. Social Homelessness:: Sheltered Physical Exam Const alert and no apparent distress Constitutional Narrative: Making better eye contact with me today. sitting in the recliner at the bedside. General Appearance: cooperative Resp clear to auscultation bilaterally Cardio regular rhythm Cardio Narrative: HR is in the 60-69 range. She has a Fitbit and this keeps track of her heart rate. It varies at times throughout the day from 40-140. GI normal to inspection, nondistended, normoactive bowel sounds, soft to palpation and non-tender Skin Rashes: no rashes Neuro Neuro Narrative: Less facial droop. She is ambulating with the hemiwalker approximately 20 feet at min assist and is advancing the left lower extremity without any assistance at this time. She has decreased step length with the left lower extremity. a 4 step was attempted yesterday but, she scissors when backing down and the leg crosses midline.....not save for steps yet. Not able to do a TUG yet. Psych Psych Narrative: Not irritable. she is cooperative. Sleeping good at night now with the Trazodone at 100 mg. Appearance: appropriate Assessment & Plan Assessment/Plan (1) Physical debility: (2) Left hemiplegia: (3) Facial droop: (4) Cognitive deficits: (5) Acute right MCA stroke: (6) Paroxysmal atrial fibrillation: (7) Hypotension: QUALIFIERS: Hypotension type: unspecified hypotension type Q ualified Code(s): I95.9 - Hypotension, unspecified (8) Hyperlipidemia: QUALIFIERS: Hyperlipidemia type: pure hypercholesterolemia Q ualified Code(s): E78.00 - Pure hypercholesterolemia, unspecified (9) Glucose intolerance: (10) Anxiety and depression: (11) SSS (sick sinus syndrome): PLAN: Plan 1. Continue therapy 2. Discontinue Celexa 3. Start Wellbutrin XL 150 mg daily in the a.m. 4. Increase the BuSpar to 5 mg 3 times daily for better control of anxiety 5. Continue trazodone 100 mg at at bedtime 6. Will refer for psychotherapy at [place]. Charges/Coding Visit Charges Inpatient E&M: 09623 Subs Hosp L1
[2024-10-01] MEDS: APIXABAN 5 MG TABLET PO ×2 (08:27→21:26)
[2024-10-01] MEDS: Senna/Docusate Sodium 1 Tablet 2 TABLET PO ×2 (08:28→21:25)
[2024-10-01] MEDS: Fluticasone/Salmeterol 232-14 Inhaler 1 PUFF INHALATION ×2 (08:28→21:26)
[2024-10-01] MEDS: 0.9% Saline Lock 10 ML Syringe IV (21:25)
[2024-10-02 00:45] VITALS: PULSE 51; O2SAT 93
--- NOTE | 2024-10-02 00:48 | NURSING ---
00:45- HR- 51 & SpO2 -93% with 2L O2.
[2024-10-02 03:07] VITALS: PULSE 54; O2SAT 95
[2024-10-02 05:29] VITALS: BP 99/40; PULSE 52; RESP 16; TEMP 36.4; O2SAT 95
[2024-10-02 05:30] VITALS: BMI 32.1
[2024-10-02 07:40] VITALS: BP 126/68; PULSE 55
[2024-10-02] MEDS: Fluticasone/Salmeterol 232-14 Inhaler 1 PUFF INHALATION ×2 (07:42→20:30)
[2024-10-02] MEDS: APIXABAN 5 MG TABLET PO ×2 (07:43→20:29)
[2024-10-02] MEDS: buPROPion (XL) 150 MG TABLET.XL PO (07:43)
[2024-10-02 15:11] VITALS: BMI 32.1
[2024-10-02 18:00] VITALS: BP 120/72; PULSE 50; RESP 16; TEMP 36.7; O2SAT 98
[2024-10-02 20:20] VITALS: PULSE 50; RESP 16; O2SAT 97; BMI 32.1
[2024-10-02] MEDS: Senna/Docusate Sodium 1 Tablet 2 TABLET PO (20:28)
[2024-10-03] VITALS: PULSE 57
[2024-10-03 03:00] VITALS: PULSE 47
[2024-10-03 05:00] VITALS: BP 95/51; PULSE 69; RESP 15; TEMP 36.8; O2SAT 95
[2024-10-03] MEDS: APIXABAN 5 MG TABLET PO ×2 (07:45→21:55)
[2024-10-03] MEDS: buPROPion (XL) 150 MG TABLET.XL PO (07:45)
[2024-10-03] MEDS: Fluticasone/Salmeterol 232-14 Inhaler 1 PUFF INHALATION ×2 (07:46→21:55)
[2024-10-03 07:50] VITALS: BP 108/61; PULSE 51
--- NOTE | 2024-10-03 08:03 | PCM.PROGNOTE ---
Subjective Subjective Afebrile VSS -heart rate last night at midnight was 52 and at 3 AM it was 47. The heart rate ranged from 47-69 yesterday on the graphic chart. The blood pressure yesterday ranged from 99/42 126/68. Maintaining appropriate oxygen saturation on RA Oral intake - FOOD good FLUIDS poor/erratic. Only took 775 cc yesterday per I&O chart Discussed with nursing - no problems that need addressed Reviewed the THERAPY notes Medication list reviewed. sleeping well at night. Denies feeling anxious any longer. she is on Buspar 5 mg TID now. Seems more alert and less fatigued on Wellbutrin. No seizures. Denies cephalgia. Having regular bowel movements. Denies chest pain, palpitations, lightheadedness, shortness of breath, cough, nausea/vomiting/abdominal pain, dysuria and calf pain. Affect is less flat. Matthew is charging the Fitbit and will bring it back in to help with tracking her HR during the day. Objective Data Objective Data Vital Signs: Vital Signs Temp Pulse Resp BP Pulse Ox O2 Del Method O2 Flow Rate 98.2 F 51 L 15 108/61 95 Room Air 2 10/03/24 05:00 10/03/24 07:50 10/03/24 05:00 10/03/24 07:50 10/03/24 05:00 10/03/24 05:00 10/02/24 03:07 Oxygen Flow Rate (L/min) 2 Oxygen Delivery Method Room Air Weight: 174 lb 13.225 oz Body Mass Index (BMI) 32.1 Intake & Output: Intake and Output for Last 24 Hours 10/01/24 10/02/24 10/03/24 23:59 23:59 23:59 Intake Total 1700 / 1700 775 / 775 150 / 150 Output Total 1675 / 1675 420 / 420 200 / 200 Balance 355 / 355 -50 / -50 Lab / Micro Data 09/30/24 05:52 09/30/24 05:52 Micro: Microbiology 09/30/24 13:15 Stool Stool Occult Blood (FILI) - Final 09/25/24 05:40 Urine Catheter - Catheter Urine Culture - Final Culture exhibits no growth. Social Homelessness:: Sheltered Physical Exam Const alert and oriented x3 Constitutional Narrative: Affect is better and less flat. Seems a little more alert and is not c/o fatigue. Making better eye contact. General Appearance: cooperative Resp clear to auscultation bilaterally Cardio regular rate and regular rhythm Cardio Narrative: No ectopy. GI normal to inspection, nondistended, normoactive bowel sounds, soft to palpation and non-tender Extremity no calf tenderness Assessment & Plan Assessment/Plan (1) Physical debility: (2) Left hemiplegia: (3) Facial droop: (4) Cognitive deficits: (5) Acute right MCA stroke: (6) Paroxysmal atrial fibrillation: (7) Hypotension: QUALIFIERS: Hypotension type: unspecified hypotension type Qualified Code(s): I95.9 - Hypotension, unspecified (8) Hyperlipidemia: QUALIFIERS: Hyperlipidemia type: pure hypercholesterolemia Qualified Code(s): E78.00 - Pure hypercholesterolemia, unspecified (9) Glucose intolerance: (10) Anxiety and depression: (11) SSS (sick sinus syndrome): PLAN: Plan 1. Continue therapy 2. Will need to complete another overnight trending pulse ox to monitor her heart rate in a few days on Amiodarone 100 mg daily. I instructed her to have her family bring her Fitbit back in.....this also gives us an idea what the HR is doing. 3. Recheck a CBC and BMP on Monday 4. Continue BuSpar and Wellbutrin Charges/Coding Visit Charges Inpatient E&M: 13330 [facility] Hosp L1
[2024-10-03 14:12] VITALS: BMI 32.1
[2024-10-03 18:00] VITALS: BP 127/70; PULSE 63; RESP 16; TEMP 37.2; O2SAT 99
[2024-10-03 21:00] VITALS: PULSE 63; RESP 16; O2SAT 97; BMI 32.1
[2024-10-03] MEDS: Senna/Docusate Sodium 1 Tablet 2 TABLET PO (21:54)
[2024-10-04 00:03] VITALS: PULSE 50
[2024-10-04 05:29] VITALS: BP 102/47; PULSE 52; RESP 15; TEMP 36.3; O2SAT 92
[2024-10-04] MEDS: Fluticasone/Salmeterol 232-14 Inhaler 1 PUFF INHALATION ×2 (07:41→22:16)
[2024-10-04] MEDS: Senna/Docusate Sodium 1 Tablet 2 TABLET PO ×2 (07:41→22:16)
[2024-10-04] MEDS: buPROPion (XL) 150 MG TABLET.XL PO (07:42)
[2024-10-04] MEDS: APIXABAN 5 MG TABLET PO ×2 (07:42→22:17)
[2024-10-04 16:31] VITALS: BMI 32.1
[2024-10-04 17:24] VITALS: BP 140/71; PULSE 51; RESP 16; TEMP 36.8; O2SAT 98
[2024-10-04 22:10] VITALS: PULSE 51; RESP 16; O2SAT 98; BMI 32.1
[2024-10-05 06:00] VITALS: BP 106/48; PULSE 59; RESP 16; TEMP 36.2; O2SAT 96
[2024-10-05] MEDS: Fluticasone/Salmeterol 232-14 Inhaler 1 PUFF INHALATION ×2 (08:40→21:15)
[2024-10-05] MEDS: APIXABAN 5 MG TABLET PO ×2 (08:40→21:14)
[2024-10-05] MEDS: Senna/Docusate Sodium 1 Tablet 2 TABLET PO ×2 (08:41→21:16)
[2024-10-05] MEDS: buPROPion (XL) 150 MG TABLET.XL PO (08:41)
[2024-10-05 08:45] VITALS: BP 90/67; PULSE 54
[2024-10-05 10:32] VITALS: BMI 32.1
[2024-10-05 17:49] VITALS: BP 118/66; PULSE 57; RESP 18; TEMP 36.9; O2SAT 96
[2024-10-05 21:03] VITALS: PULSE 57; O2SAT 96
[2024-10-05] MEDS: 0.9% Saline Lock 10 ML Syringe IV (21:12)
[2024-10-05 21:18] VITALS: BMI 32.1
[2024-10-06] VITALS (7 sets, daily range): BP systolic 95–110; BP diastolic 54–67; PULSE 53–73; RESP 16; TEMP 36.7–36.8; O2SAT 94–99; BMI 32.1
[2024-10-06] MEDS: Senna/Docusate Sodium 1 Tablet 2 TABLET PO ×2 (08:50→21:47)
[2024-10-06] MEDS: buPROPion (XL) 150 MG TABLET.XL PO (08:50)
[2024-10-06] MEDS: Fluticasone/Salmeterol 232-14 Inhaler 1 PUFF INHALATION ×2 (08:50→21:46)
[2024-10-06] MEDS: APIXABAN 5 MG TABLET PO ×2 (08:51→21:45)
--- NOTE | 2024-10-06 21:20 | NURSING ---
At approximately 2100 Pt c/o heart palpitations. Vitals obtained- BP 123/76, pulse 73. Auscultated irregular heartbeat ranging from 73-[address] Costello contacted, new orders obtained. Administer Amiodarone 100mg PO X1 dose now and increase MOJGAN dose to BID. Pt notified of new orders, verbalized understanding.
--- NOTE | 2024-10-06 21:30 | NURSING ---
2130 Pt re-evaluated, resting comfortably. HR reg at this time. Will continue to monitor.
[2024-10-07] VITALS (7 sets, daily range): BP systolic 95–110; BP diastolic 49–63; PULSE 53–59; RESP 16–17; TEMP 36.6; O2SAT 96–99; BMI 32.1
--- NOTE | 2024-10-07 04:18 | NURSING ---
2130 Pt re-evaluated, resting comfortably. HR reg at this time. Will continue to monitor.
[2024-10-07 07:07] LABS: Hematocrit 36.2 % (37-47); Hemoglobin 11.6 g/dL (12.0-15.0); Mean Corp Hgb Conc 32.0 g/dL (32-36); Mean Corpuscular Volume 87.7 fL (81-99); Mean Platelet Vol. 10.1 fl (6.2-12.0); Platelet Count 253 K/mm3 (150-450); RBC Distribution Width CV 14.4 % (11.6-14.6); RBC Distribution Width SD 46.3 fl (35.1-43.9); Red Blood Count 4.13 M/mm3 (4.2-5.4); White Blood Count 8.2 K/mm3 (4.4-11.0)
[2024-10-07 08:06] LABS: Anion Gap 12 (5-15); BUN 19 mg/dL (4-19); BUN/Creat Ratio 25.4 RATIO (10-20); Calcium,Total 9.4 mg/dL (7.6-11.0); Carbon Dioxide 26.1 mmol/L (21.0-32.0); Chloride 102 mmol/L (98-108); Estimated Creatinine Clearance 87.92 ml/min (50-250); Glucose 98 mg/dL (70-99); Magnesium 2.0 mg/dL (1.5-2.2); Potassium 4.3 mmol/L (3.3-5.1)
[2024-10-07] MEDS: APIXABAN 5 MG TABLET PO ×2 (08:14→21:34)
[2024-10-07] MEDS: buPROPion (XL) 150 MG TABLET.XL PO (08:14)
[2024-10-07] MEDS: Fluticasone/Salmeterol 232-14 Inhaler 1 PUFF INHALATION ×2 (08:14→21:32)
--- NOTE | 2024-10-07 10:38 | PN_ITS ---
Subjective Subjective Rajwinder was seen on TEAM rounds today. Her Matthew participated by phone. all questions were answered to their satisfaction. Afebrile VSS - HR last evening/night was ranging from 73-140. She complained of palpitations. I ordered amiodarone 100 mg and the HR thru the night ranged from 45-100. It was 45-49 for a total of 4. Minutes and 28 seconds.No significant Oxygen desaturations. There is no documentation in the vitals of a HR > 73 and no HR > 100 on the overnight trending pulse ox. apparently the HR was checked prior to the overnight trending pulse ox being applied. Maintaining appropriate oxygen saturation on RA Oral intake - FOOD good FLUIDS fair Discussed with nursing - no problems that need addressed Reviewed the THERAPY notes Medication list reviewed. All lab from this morning was personally reviewed. The white blood cell count is normal at 8.2. Hemoglobin is 11.6 which is up from 10.1 last week. Platelets are within normal limits. Sodium and potassium are normal. The BUN is 19 with a stable creatinine of 0.73. Magnesium is 2. 1. + hx of PAF. Admitted to ischemic/embolic stroke. Was not on AC. 2. Came to rehab on flecainide 100 mg BID and nothing to block the AV node. Went into AF with RVR and was transferred to PCU. Received Diltiazem and amiodarone and converted. See by Dr. Friend and RX'd Lopressor and Flecainde. Even with Lopressor 12.5 BD she was severely bradycardic sith a low BP and lopressor was discontinued. 3. HR was uncontrolled with Flecainide alone and ranged from 40-140. D/W Dr. Ramirez and he recommended. Amiodarone 200 mg BID for a few weeks and then decrease to 200 mg daily. On 200 mg BID the HR ranged from the mid 30's to 65. D/W Dr. Friend and the amiodarone was decreased to 100 mg daily. Yesterday on 100 mg daily the HR ranged from 73-140. She was given an extra 100 mg of amiodarone last night. The HR overnight reanged from 45-100. HR today is in the 50's. 4. TSH and AM cortisol are normal. 5. I suspect she has SSS and may need a PM so that we can use medication to control the fast HR's but, not worry that the HR is going to drop into the 30's. 6. Will re-consult cardiology. Objective Data Objective Data Vital Signs: Vital Signs Temp Pulse Resp BP Pulse Ox O2 Del Method O2 Flow Rate 97.8 F 53 L 16 109/63 98 Nasal Cannula 2 10/07/24 06:16 10/07/24 06:16 10/07/24 06:16 10/07/24 06:16 10/07/24 07:58 10/07/24 07:58 10/07/24 07:58 FiO2 21 10/06/24 21:34 Oxygen Flow Rate (L/min) 2 Oxygen Delivery Method Nasal Cannula Weight: 174 lb 13.225 oz Body Mass Index (BMI) 32.1 Intake & Output: Intake and Output for Last 24 Hours 10/05/24 10/06/24 10/07/24 23:59 23:59 23:59 Intake Total 980 / 980 1110 / 1110 350 / 350 Output Total 1100 / 1100 1200 / 1200 400 / 400 Balance -120 / -120 -90 / -90 -50 / -50 Lab / Micro Data 10/07/24 06:54 10/07/24 06:54 Labs: Laboratory Results - last 24 hr 10/07/24 06:54: WBC 8.2, RBC 4.13 L, Hgb 11.6 L, Hct 36.2 L, MCV 87.7, MCH 28.1, MCHC 32.0, RDW Std Deviation 46.3 H, RDW Coeff of Royce 14.4, Plt Count 253, MPV 10.1, Sodium 140, Potassium 4.3, Chloride 102, Carbon Dioxide 26.1, Anion Gap 12, BUN 19, Creatinine 0.73, Estim Creat Clear Calc 87.92, Est GFR (MDRD) Non-Af 99, BUN/Creatinine Ratio 25.4 H, Glucose 98, Calcium 9.4, Magnesium 2.0 Micro: Microbiology 10/06/24 11:25 Mucosa - Throat Streptococcus pyogenes (PCR) - Final 09/30/24 13:15 Stool Stool Occult Blood (FILI) - Final 09/25/24 05:40 Urine Catheter - Catheter Urine Culture - Final Culture exhibits no growth. Social Homelessness:: Sheltered Physical Exam Const alert and oriented x3 General Appearance: cooperative Resp clear to auscultation bilaterally Cardio regular rhythm Cardio Narrative: No ectopy. Rate: bradycardia GI normal to inspection, nondistended, normoactive bowel sounds, soft to palpation and non-tender Extremity no calf tenderness Skin Rashes: no rashes Assessment & Plan Assessment/Plan (1) Physical debility: (2) Left hemiplegia: (3) Facial droop: (4) Cognitive deficits: (5) Acute right MCA stroke: (6) Paroxysmal atrial fibrillation: (7) Hypotension: QUALIFIERS: Hypotension type: unspecified hypotension type Q ualified Code(s): I95.9 - Hypotension, unspecified (8) Hyperlipidemia: QUALIFIERS: Hyperlipidemia type: pure hypercholesterolemia Q ualified Code(s): E78.00 - Pure hypercholesterolemia, unspecified (9) Glucose intolerance: (10) Anxiety and depression: (11) SSS (sick sinus syndrome): PLAN: Plan Continue therapy 1. + hx of PAF. Admitted to ischemic/embolic stroke. Was not on AC. 2. Came to rehab on flecainide 100 mg BID and nothing to block the AV node. Went into AF with RVR and was transferred to PCU. Received Diltiazem and amiodarone and converted. See by Dr. Friend and RX'd Lopressor and Flecainde. Even with Lopressor 12.5 BD she was severely bradycardic sith a low BP and lopressor was discontinued. 3. HR was uncontrolled with Flecainide alone and ranged from 40-140. D/W Dr. Ramirez and he recommended. Amiodarone 200 mg BID for a few weeks and then decrease to 200 mg daily. On 200 mg BID the HR ranged from the mid 30's to 65. D/W Dr. Friend and the amiodarone was decreased to 100 mg daily. Yesterday on 100 mg daily the HR ranged from 73-140. She was given an extra 100 mg of amiodarone last night. The HR overnight reanged from 45-100. HR today is in the 50's. 4. TSH and AM cortisol are normal. 5. I suspect she has SSS and may need a PM so that we can use medication to control the fast HR's but, not worry that the HR is going to drop into the 30's. 6. Will re-consult cardiology. Charges/Coding Visit Charges Inpatient E&M: 04788 Subs Hosp L2
--- NOTE | 2024-10-07 12:50 | CASEMGMT ---
Social Work IDT met with patient at bedside, then via conference call for Team meeting. Discussed patient's progress in PT/OT/ST/SN/MD. Educated to [employer] insurance with [employer] 10/07 and continued stay is not guaranteed with each review. entered cardiology consult this date for possible pacemaker placement. Pt's HR is not stable. Pt is needing physical assistance with ADLs. Offered for to schedule therapy training to learn how to assist pt, as pt stated she is only going to go home. stated company is keeping [employer] insurance for October. SW will continue to follow for DC planning needs. Will ReTeam next week. Taylor Shea REVIEW SPECIALIST RETAIL PRICING COORDINATOR
[2024-10-07] MEDS: Senna/Docusate Sodium 1 Tablet 2 TABLET PO (21:34)
[2024-10-08 01:40] VITALS: PULSE 86; RESP 16; O2SAT 95
[2024-10-08 03:17] VITALS: PULSE 81; RESP 15; O2SAT 96
[2024-10-08 06:00] VITALS: BP 90/44; PULSE 58; RESP 15; TEMP 36.7; O2SAT 94
[2024-10-08] MEDS: APIXABAN 5 MG TABLET PO ×2 (07:54→22:05)
[2024-10-08] MEDS: buPROPion (XL) 150 MG TABLET.XL PO (07:54)
[2024-10-08] MEDS: Fluticasone/Salmeterol 232-14 Inhaler 1 PUFF INHALATION ×2 (07:54→22:03)
--- NOTE | 2024-10-08 08:56 | PN_ITS ---
Subjective Subjective Afebrile Blood pressure over the past 24 hours has ranged from 90/44 to 110/59. Heart rate has ranged from 53-86. Maintaining appropriate oxygen saturation on room air. Sleeping well at night most nights. Denies cephalgia. No CP, SOB, cough, dysuria. Her only complaint is a stuffy nose.......she has used Flonase in the past for this. Slept well last night. has not brought the Fitbit in yet. she has occasional head sensation......when rolling over in bed and also sometimes when she fist stands........it passes after a minute or so. Denies vertigo. She was not seen by cardiology. Consult put in yesterday. Feels as though she is making progress with therapy. Tells me that she ambulated with the FWW from her room to the therapy room today. She completed functional mobility to and from the today with a QC at MIN A. Objective Data Objective Data Vital Signs: Vital Signs Temp Pulse Resp BP Pulse Ox O2 Del Method O2 Flow Rate 98.0 F 58 L 15 90/44 L 94 Room Air 2 10/08/24 06:00 10/08/24 06:00 10/08/24 06:00 10/08/24 06:00 10/08/24 06:00 10/08/24 06:00 10/07/24 07:58 FiO2 21 10/06/24 21:34 Oxygen Flow Rate (L/min) 2 Oxygen Delivery Method Room Air Weight: 174 lb 13.225 oz Body Mass Index (BMI) 32.1 Intake & Output: Intake and Output for Last 24 Hours 10/06/24 10/07/24 10/08/24 23:59 23:59 23:59 Intake Total 1110 / 1110 1650 / 1650 240 / 240 Output Total 1200 / 1200 1175 / 1175 225 / 225 Balance -90 / -90 475 / 475 15 Lab / Micro Data 10/07/24 06:54 10/07/24 06:54 Micro: Microbiology 10/06/24 11:25 Mucosa - Throat Streptococcus pyogenes (PCR) - Final 09/30/24 13:15 Stool Stool Occult Blood (FILI) - Final 09/25/24 05:40 Urine Catheter - Catheter Urine Culture - Final Culture exhibits no growth. Social Homelessness:: Sheltered Physical Exam Const alert, oriented x3 and no apparent distress General Appearance: cooperative Resp clear to auscultation bilaterally Cardio no gallops Cardio Narrative: Rhythm is irreg irreg today but, the HR is WNL. Rate: bradycardia GI normal to inspection, nondistended, normoactive bowel sounds, soft to palpation and non-tender Extremity no calf tenderness Skin Rashes: no rashes Assessment & Plan Assessment/Plan (1) Physical debility: (2) Left hemiplegia: (3) Facial droop: (4) Cognitive deficits: (5) Acute right MCA stroke: (6) Paroxysmal atrial fibrillation: (7) Hypotension: QUALIFIERS: Hypotension type: unspecified hypotension type Q ualified Code(s): I95.9 - Hypotension, unspecified (8) Hyperlipidemia: QUALIFIERS: Hyperlipidemia type: pure hypercholesterolemia Q ualified Code(s): E78.00 - Pure hypercholesterolemia, unspecified (9) Glucose intolerance: (10) Anxiety and depression: (11) SSS (sick sinus syndrome): PLAN: Plan 1. Continue therapy 2. Add Flonase 2 sprays daily each nostril to the current drug regimen. She is also on a fluticasone inhaler and Singulair. 3. Waiting for cardiology to see her. Consult called to the [facility] office yesterday afternoon. Dr. Comer was non categorical preschool teacher yesterday and today. 4. Continue amiodarone 100 mg twice daily. We have been asking to have her Fitbit brought in since last week. This will help us to determine what the HR is doing without having to do an overnight trending pulse ox. 5. Continue Trazodone at HS. Obtain an EKG in the AM since she is on Trazodone and Amiodarone.......the last EKG showed no QT prolongation. Charges/Coding Visit Charges Inpatient E&M: 10521 Subs Hosp L1
--- NOTE | 2024-10-08 14:20 | CASEMGMT ---
Addendum entered by Taylor Shea 10/08/24 16:10: Received return call from who confirmed he will provide insurance cards once received. - SW spoke with pt to update on change in insurance plan, not company, and a new auth will be requested, with no anticipation for issues. Pt relieved and appreciative. SW inquired further about pt's mental health and overall mood. Pt reports being okay, relationship with , daughter and work doing well. Pt reports seeing improvements with therapy, though, not as quickly as she would like. Pt was tearful at times. SW offered encouragement and emotional support. Pt inquired about applying for disability. SW offered to provide information on applying, though, it will depend on her income and employment status. pt to review. Original Note: Social Work SW received call from pt's 's employer, [employer]. She explained the employer is remaining with [employer] insurance, however, switching to the Gold plan. Insurance cards have been mailed to and should arrive this week. - SW left VM with requesting once he receives those insurance cards to bring them to the nurse's station to make a copy for CM to request new auth effective 10/14. Taylor Shea PROJECT CONTROL ANALYST [employer]
--- NOTE | 2024-10-08 15:15 | EKG12_ITS ---
Test Reason : AF Blood Pressure : */* mmHG Vent. Rate : 57 BPM Atrial Rate : 57 BPM P-R Int : 150 ms QRS Dur : 80 ms QT Int : 450 ms P-R-T Axes : 46 8 7 degrees QTcB Int : [address] & T wave abnormality, consider anterior ischemia Abnormal ECG When compared with ECG of 30-Sep-2024 10:13, No significant change was found Confirmed by KAREN HOPKINS ([id number]), publications editor MONTANA BECERRA ([id number]) on 10/09/2024 2:01:11 PM Referred By: SYMONE Confirmed By: KAREN HOPKINS
[2024-10-08 16:40] VITALS: BMI 32.1
[2024-10-08 17:30] VITALS: BP 99/50; PULSE 68; RESP 16; TEMP 36.8; O2SAT 96
[2024-10-08 20:20] VITALS: BMI 32.1
[2024-10-08 20:30] VITALS: PULSE 59; RESP 16; O2SAT 95
[2024-10-08 21:55] VITALS: BP 143/69; PULSE 59
[2024-10-08] MEDS: Fluticasone 0.05% 1 SPRAY NASAL.SRY 2 SPRAY NASAL (22:03)
[2024-10-08] MEDS: Senna/Docusate Sodium 1 Tablet 2 TABLET PO (22:04)
[2024-10-09 00:40] VITALS: PULSE 66; RESP 16; O2SAT 96
[2024-10-09 05:29] VITALS: BP 91/46; PULSE 61; RESP 17; TEMP 36.9; O2SAT 94
[2024-10-09 05:30] VITALS: BMI 32.3
[2024-10-09 07:25] VITALS: PULSE 70; RESP 16; O2SAT 95
[2024-10-09] MEDS: buPROPion (XL) 150 MG TABLET.XL PO (07:42)
[2024-10-09] MEDS: Senna/Docusate Sodium 1 Tablet 2 TABLET PO ×2 (07:43→21:19)
[2024-10-09] MEDS: APIXABAN 5 MG TABLET PO ×2 (07:43→21:23)
[2024-10-09] MEDS: Fluticasone/Salmeterol 232-14 Inhaler 1 PUFF INHALATION ×2 (07:43→21:22)
[2024-10-09 07:54] VITALS: O2SAT 96
--- NOTE | 2024-10-09 10:19 | PN_ITS ---
Progress Note Afebrile The heart rate in the past 24 hours has ranged from 58- 70. The blood pressure has ranged from 90/44 - 143/69 She is maintaining appropriate oxygen saturation on room air. there is a comment from night nursing that she is more chatty and personable and that she was actually cheerful and engaging last night Rajwinder got her Fitbit back last night. Her HR ranged from 54-130's during the night. current HR is 60. the Fitbit does not tell you how long the HR was at 130's. Denies CP, SOB, palpitations today. Denies dysuria, cough, calf pain. Physical Exam Const alert, oriented x3 and no apparent distress General Appearance: cooperative Resp clear to auscultation bilaterally Cardio no gallops Cardio Narrative: HR currently is in the mid 60's and it is regular. No ectopy. GI normal to inspection, nondistended, normoactive bowel sounds, soft to palpation and non-tender Extremity no calf tenderness Skin Rashes: no rashes Assessment & Plan Assessment/Plan (1) Physical debility: (2) Left hemiplegia: (3) Facial droop: (4) Cognitive deficits: (5) Acute right MCA stroke: (6) Paroxysmal atrial fibrillation: (7) Hypotension: QUALIFIERS: Hypotension type: unspecified hypotension type Qualified Code(s): I95.9 - Hypotension, unspecified (8) Hyperlipidemia: QUALIFIERS: Hyperlipidemia type: pure hypercholesterolemia Qualified Code(s): E78.00 - Pure hypercholesterolemia, unspecified (9) Glucose intolerance: (10) Anxiety and depression: (11) SSS (sick sinus syndrome): PLAN: Plan 1. Continue therapy 2. Monitor the heart rate on the Fitbit for another 24 hours. If she continues to have tachy/diana will attempt again to get a cardiology consult. 3. No changes to the drug regimen today. Visit Charges Inpatient E&M: 48522 [facility] Hosp L1
[2024-10-09 15:28] VITALS: BMI 32.3
[2024-10-09 17:59] VITALS: BP 101/55; PULSE 56; RESP 17; TEMP 37.2; O2SAT 96
[2024-10-09] MEDS: Fluticasone 0.05% 1 SPRAY NASAL.SRY 2 SPRAY NASAL (21:23)
[2024-10-09 23:00] VITALS: BMI 32.3
[2024-10-10 03:00] VITALS: PULSE 56
[2024-10-10 06:00] VITALS: BP 107/61; PULSE 53; RESP 16; TEMP 36.8; O2SAT 95
[2024-10-10] MEDS: Fluticasone/Salmeterol 232-14 Inhaler 1 PUFF INHALATION ×2 (08:12→22:48)
[2024-10-10] MEDS: buPROPion (XL) 150 MG TABLET.XL PO (08:12)
[2024-10-10] MEDS: APIXABAN 5 MG TABLET PO ×2 (08:12→22:50)
[2024-10-10 10:00] VITALS: PULSE 53
--- NOTE | 2024-10-10 11:27 | PN_ITS ---
Subjective Subjective Afebrile VSS -heart rates recorded by nursing over the past 48 hours have ranged from 53- 70. The blood pressure over the past 48 hours has ranged from 90/44 to 143/69. Maintaining appropriate oxygen saturation on RA - nursing is checking the pulse ox twice at night and the HR and the O2 sat has been WNL. Oral intake - FOOD good FLUIDS good Discussed with nursing - no problems that need addressed Reviewed the THERAPY notes Medication list reviewed. With the Fitbit her HR has ranged from 45-140 over the past 24H. The 140 occurred in the middle of the night. she did not awaken. She has had no syncope or presyncope. Occasional lightheadedness when standing but, passes quickly after she has been standing a minute or so. Not getting IVERSON or lightheaded while doing therapy. Objective Data Objective Data Vital Signs: Vital Signs Temp Pulse Resp BP Pulse Ox O2 Del Method O2 Flow Rate 98.2 F 53 L 16 107/61 95 Room Air 2 10/10/24 06:00 10/10/24 10:00 10/10/24 06:00 10/10/24 06:00 10/10/24 06:00 10/10/24 10:00 10/08/24 10:25 FiO2 98 10/08/24 10:25 Oxygen Flow Rate (L/min) 2 Oxygen Delivery Method Room Air Weight: 175 lb 7.807 oz Body Mass Index (BMI) 32.3 Intake & Output: Intake and Output for Last 24 Hours 10/08/24 10/09/24 10/10/24 23:59 23:59 23:59 Intake Total 1230 / 1230 1540 / 1540 240 / 240 Output Total 1125 / 1125 700 / 700 Balance 105 / 105 840 / 840 240 / 240 Lab / Micro Data 10/07/24 06:54 10/07/24 06:54 Micro: Microbiology 10/06/24 11:25 Mucosa - Throat Streptococcus pyogenes (PCR) - Final 09/30/24 13:15 Stool Stool Occult Blood (FILI) - Final 09/25/24 05:40 Urine Catheter - Catheter Urine Culture - Final Culture exhibits no growth. Social Homelessness:: Sheltered Physical Exam Const alert, oriented x3 and no apparent distress General Appearance: cooperative Resp clear to auscultation bilaterally Cardio regular rhythm and no gallops Rate: bradycardia GI normal to inspection, nondistended, normoactive bowel sounds, soft to palpation and non-tender Extremity no calf tenderness General Extremity: Negative for edema Skin General Skin Exam: no breakdown Rashes: no rashes Psych cooperative Psych Narrative: more animated and talkative than at admission to rehab. Appearance: appropriate Assessment & Plan Assessment/Plan (1) Physical debility: (2) Left hemiplegia: (3) Facial droop: (4) Cognitive deficits: (5) Acute right MCA stroke: (6) Paroxysmal atrial fibrillation: (7) Hypotension: QUALIFIERS: Hypotension type: unspecified hypotension type Q ualified Code(s): I95.9 - Hypotension, unspecified (8) Hyperlipidemia: QUALIFIERS: Hyperlipidemia type: pure hypercholesterolemia Q ualified Code(s): E78.00 - Pure hypercholesterolemia, unspecified (9) Glucose intolerance: (10) Anxiety and depression: (11) SSS (sick sinus syndrome): PLAN: Plan 1. Continue therapy 2. Asymptomatic with bradycardia. 3. Needs a 30 day event monitor at [place] from rehab........to see what the HR is doing so that cardiology can determine if a PM for SSS/tachy diana is indicated. She was to follow up with a saw superintendent at [place] prior to the stroke to discuss Watchman. Fast HR seems to happen more in the middle of the night? and not during the day when she is awake and working with therapy. Overnight trending pulse ox was unremarkable at admission but, STOP BANG score is 4. She falls asleep watching TV and reading a book and riding in the car. She has restless leg at night at times. She suffers from Depression. she has PAF and she had a stroke. She had daytime sleepiness at presentation to rehab. Has SANCHES's in the AM. Will prceed with plan [facility] [place] [facility]. Charges/Coding Visit Charges Inpatient E&M: 58626 Subs Hosp L1
[2024-10-10 15:17] VITALS: BMI 32.3
[2024-10-10 17:01] VITALS: BP 115/61; PULSE 51; RESP 17; TEMP 36.8; O2SAT 96
[2024-10-10 22:40] VITALS: BP 100/58; PULSE 63; RESP 18; TEMP 36.5; O2SAT 94
[2024-10-10] MEDS: Fluticasone 0.05% 1 SPRAY NASAL.SRY 2 SPRAY NASAL (22:48)
[2024-10-10] MEDS: Senna/Docusate Sodium 1 Tablet 2 TABLET PO (22:49)
[2024-10-11] VITALS (9 sets, daily range): BP systolic 99–126; BP diastolic 45–80; PULSE 48–68; RESP 16–17; TEMP 36.8–36.9; O2SAT 94–98; BMI 32.3
[2024-10-11] MEDS: buPROPion (XL) 150 MG TABLET.XL PO (08:37)
[2024-10-11] MEDS: APIXABAN 5 MG TABLET PO ×2 (08:37→21:00)
[2024-10-11] MEDS: Senna/Docusate Sodium 1 Tablet 2 TABLET PO (08:38)
[2024-10-11] MEDS: Fluticasone/Salmeterol 232-14 Inhaler 1 PUFF INHALATION ×2 (08:40→21:01)
[2024-10-11] MEDS: Fluticasone 0.05% 1 SPRAY NASAL.SRY 2 SPRAY NASAL (21:00)
[2024-10-12 00:40] VITALS: PULSE 68; RESP 16; O2SAT 98
[2024-10-12 06:00] VITALS: BP 96/43; PULSE 59; RESP 16; TEMP 36.7; O2SAT 98
[2024-10-12 08:00] VITALS: BP 98/48; PULSE 56
[2024-10-12] MEDS: APIXABAN 5 MG TABLET PO ×2 (08:25→21:43)
[2024-10-12] MEDS: buPROPion (XL) 150 MG TABLET.XL PO (08:25)
[2024-10-12] MEDS: Senna/Docusate Sodium 1 Tablet 2 TABLET PO (08:25)
[2024-10-12 11:25] VITALS: BMI 32.3
[2024-10-12] MEDS: Fluticasone/Salmeterol 232-14 Inhaler 1 PUFF INHALATION ×2 (12:29→21:42)
[2024-10-12 17:34] VITALS: BP 111/60; PULSE 72; RESP 16; TEMP 36.2; O2SAT 96
[2024-10-12] MEDS: Fluticasone 0.05% 1 SPRAY NASAL.SRY 2 SPRAY NASAL (21:42)
[2024-10-12 23:40] VITALS: BMI 32.3
[2024-10-13] VITALS (9 sets, daily range): BP systolic 96–106; BP diastolic 42–62; PULSE 56–121; RESP 15–17; TEMP 36.7–36.9; O2SAT 96–99; BMI 32.3
--- NOTE | 2024-10-13 09:18 | PCM.PROGNOTE ---
Subjective Subjective Afebrile VSS -heart rate over the past 24 hours has ranged from 56-72. Blood pressure has ranged from 96/43 to 111/60. Maintaining appropriate oxygen saturation on RA Oral intake - FOOD good FLUIDS good Discussed with nursing - no problems that need addressed Reviewed the THERAPY notes Medication list reviewed. Denies cephalgia, vertigo, chest pain, shortness of breath, cough, abdominal pain, dysuria and calf pain. Objective Data Objective Data Vital Signs: Vital Signs Temp Pulse Resp BP Pulse Ox O2 Del Method O2 Flow Rate 98.0 F 57 L 16 106/52 L 99 Room Air 2 10/13/24 05:49 10/13/24 05:49 10/13/24 05:49 10/13/24 05:49 10/13/24 05:49 10/13/24 07:45 10/13/24 05:49 FiO2 98 10/08/24 10:25 Oxygen Flow Rate (L/min) 2 Oxygen Delivery Method Room Air Weight: 175 lb 7.807 oz Body Mass Index (BMI) 32.3 Intake & Output: Intake and Output for Last 24 Hours 10/11/24 10/12/24 10/13/24 23:59 23:59 23:59 Intake Total 1980 / 2280 1660 / 1660 300 / 300 Output Total 1500 / 1700 1800 / 1800 550 / 550 Balance 480 / 580 -140 / -140 -250 / -250 Lab / Micro Data 10/07/24 06:54 10/07/24 06:54 Micro: Microbiology 10/06/24 11:25 Mucosa - Throat Streptococcus pyogenes (PCR) - Final 09/30/24 13:15 Stool Stool Occult Blood (FILI) - Final 09/25/24 05:40 Urine Catheter - Catheter Urine Culture - Final Culture exhibits no growth. Social Homelessness:: Sheltered Physical Exam Const alert, oriented x3 and no apparent distress General Appearance: cooperative Resp clear to auscultation bilaterally Effort and Inspection: Negative for tachypneic Cardio regular rhythm and no gallops Cardio Narrative: Mildly bradycardic. GI normal to inspection, nondistended, normoactive bowel sounds, soft to palpation and non-tender Extremity no calf tenderness General Extremity: Negative for edema Assessment & Plan Assessment/Plan (1) Physical debility: (2) Left hemiplegia: (3) Facial droop: (4) Cognitive deficits: (5) Acute right MCA stroke: (6) Paroxysmal atrial fibrillation: (7) Anxiety and depression: (8) SSS (sick sinus syndrome): PLAN: Plan 1. Continue therapy 2. Overnight trending pulse ox tonight 3. Continue amiodarone 100 mg twice daily Charges/Coding Visit Charges Inpatient E&M: 82062 Subs Hosp L1
[2024-10-13] MEDS: Fluticasone/Salmeterol 232-14 Inhaler 1 PUFF INHALATION ×2 (09:38→21:37)
[2024-10-13] MEDS: Senna/Docusate Sodium 1 Tablet 2 TABLET PO ×2 (09:39→21:37)
[2024-10-13] MEDS: buPROPion (XL) 150 MG TABLET.XL PO (09:40)
[2024-10-13] MEDS: APIXABAN 5 MG TABLET PO ×2 (09:40→21:36)
--- NOTE | 2024-10-13 17:10 | NURSING ---
Patient reported around 1640 her heart rate on her fitbit was recording tachy, HR recorded in VS section. Patient voiced no concerns and upon recheck approximately 20 minutes later, she was back to a normal heart rate per VS monitor.
[2024-10-13] MEDS: Fluticasone 0.05% 1 SPRAY NASAL.SRY 2 SPRAY NASAL (21:36)
[2024-10-14] VITALS (7 sets, daily range): BP systolic 90–118; BP diastolic 55–69; PULSE 50–60; RESP 16; TEMP 36.4–36.6; O2SAT 95–98; BMI 32.3
[2024-10-14] MEDS: Senna/Docusate Sodium 1 Tablet 2 TABLET PO ×2 (07:51→20:51)
[2024-10-14] MEDS: Fluticasone/Salmeterol 232-14 Inhaler 1 PUFF INHALATION ×2 (07:51→20:51)
[2024-10-14] MEDS: APIXABAN 5 MG TABLET PO ×2 (07:51→20:47)
[2024-10-14] MEDS: buPROPion (XL) 150 MG TABLET.XL PO (07:52)
[2024-10-14] MEDS: Fluticasone 0.05% 1 SPRAY NASAL.SRY 2 SPRAY NASAL (20:50)
[2024-10-15] VITALS (7 sets, daily range): BP systolic 110–114; BP diastolic 48–61; PULSE 61–69; RESP 15–17; TEMP 36.1–36.7; O2SAT 94–98; BMI 32.3
[2024-10-15] MEDS: APIXABAN 5 MG TABLET PO ×2 (07:56→23:40)
[2024-10-15] MEDS: Fluticasone/Salmeterol 232-14 Inhaler 1 PUFF INHALATION ×2 (07:56→23:43)
[2024-10-15] MEDS: buPROPion (XL) 150 MG TABLET.XL PO (07:56)
--- NOTE | 2024-10-15 09:17 | PCM.PROGNOTE ---
Subjective Subjective Rajwinder was seen on team rounds today. Her Matthew was present in the room. Matthew also participated in family training today. Afebrile VSS -heart rate over the past 24 hours has ranged from 90/55 to 118/67. Heart rate on the vital sign record has ranged from 50 at 2:30 AM on 10/15/2019 5-69 this morning. Maintaining appropriate oxygen saturation on RA Oral intake - FOOD good FLUIDS good Discussed with nursing - no problems that need addressed Reviewed the THERAPY notes Medication list reviewed. I reviewed the results of the overnight trending pulse ox. The heart rate ranged from 48-82 during the time she was monitored. Heart rate ranged from 50 to 5984.8% of the time she was monitored for a total of 7 hours and 56 minutes. 99% of the time the heart rate ranged from 50-69. Rajwinder is c/o feeling fatigued in the AM and she feels this may be due to Trazodone. She is currently taking 100 mg at HS. she denies CP, SOB, cough, N/V/abd pain, dysuria and calf pain. Objective Data Objective Data Vital Signs: Vital Signs Temp Pulse Resp BP Pulse Ox O2 Del Method O2 Flow Rate 97.7 F L 69 15 113/48 L 94 Room Air 2 10/15/24 05:51 10/15/24 05:51 10/15/24 05:51 10/15/24 05:51 10/15/24 08:48 10/15/24 08:48 10/15/24 04:00 FiO2 98 10/08/24 10:25 Oxygen Flow Rate (L/min) 2 Oxygen Delivery Method Room Air Weight: 175 lb 7.807 oz Body Mass Index (BMI) 32.3 Intake & Output: Intake and Output for Last 24 Hours 10/13/24 10/14/24 10/15/24 23:59 23:59 23:59 Intake Total 1450 / 1550 2970 / 2970 610 / 610 Output Total 1800 / 1950 1700 / 1700 350 / 350 Balance -350 / -400 1270 / 1270 260 / 260 Lab / Micro Data 10/07/24 06:54 10/07/24 06:54 Micro: Microbiology 10/06/24 11:25 Mucosa - Throat Streptococcus pyogenes (PCR) - Final 09/30/24 13:15 Stool Stool Occult Blood (FILI) - Final 09/25/24 05:40 Urine Catheter - Catheter Urine Culture - Final Culture exhibits no growth. Social Homelessness:: Sheltered Physical Exam Const alert and no apparent distress General Appearance: cooperative Resp clear to auscultation bilaterally Effort and Inspection: Negative for tachypneic Cardio regular rhythm and no gallops Cardio Narrative: Mildly bradycardic. GI normal to inspection, nondistended, normoactive bowel sounds, soft to palpation and non-tender Extremity no calf tenderness General Extremity: Negative for edema Neuro Neuro Narrative: Less facial droop. She is ambulating with a quad cane now. Loses balance easily. she is able to do 9 sit to stands now....up from 6 last week. She completed the TUG in 60 sec.....down from 2 minutes. Left leg is improving, LUE is still mostly flaccid. Psych Psych Narrative: More interactive than she was at admission. Affect is still pretty flat. Less time napping during the day. No seizures with Wellbutrin. Has been on Wellbutrin 13 days now. Denies felling anxious. Wanting to go home. Plans on going home at [place]. Matthew told us today he does not plan on taking any time off work. They are expecting their 15 YO dtr to be able to care for Rajwinder at home? Assessment & Plan Assessment/Plan (1) Physical debility: (2) Left hemiplegia: (3) Facial droop: (4) Cognitive deficits: (5) Acute right MCA stroke: (6) Paroxysmal atrial fibrillation: (7) Anxiety and depression: (8) SSS (sick sinus syndrome): PLAN: Plan 1. Continue therapy 2. Decrease the Trazodone to 50 mg Q HS 3. Increase Wellbutrin to 300 mg Daily in the AM. 4. Will need follow up with cardiology following DC from rehab. Also will need follow up with neurology. 5. If the 15 YO is going to be caring for her mother when she gets home she will need to come in for family training. Charges/Coding Visit Charges Inpatient E&M: 55424 Subs Hosp L2
--- NOTE | 2024-10-15 14:46 | CASEMGMT ---
Team meeting held on this date with pt and pt's in attendance. PT/OT/SN/ provided updates on pt over the last week. Pt is making good progress with therapy and has shown much improvement over the last week. Family training held today with pt's spouse. Pt lives at home with her and 15 year old dgt. SW inquired if pt's would be taking time off of work to assist pt at time of dc and spouse states that he will not. Pt states her 15 year old dgt will be able to assist her and a sister lives close and can provide some support. Pt denies additional help at home at this time. Insurance was updated today and more time has been approved with next review on 10/21. Pt and notified and updated that continued stay is not guaranteed with each update. Pt is showing continuous improvement and would benefit from continuation of treatment plan at this time. Will ReTeam next week. REHAN Chaudhari
[2024-10-15] MEDS: Fluticasone 0.05% 1 SPRAY NASAL.SRY 2 SPRAY NASAL (23:59)
[2024-10-16 01:50] VITALS: O2SAT 97
[2024-10-16 03:06] VITALS: O2SAT 98
[2024-10-16 04:21] VITALS: BMI 32.3
[2024-10-16 06:00] VITALS: BP 96/56; PULSE 68; RESP 12; TEMP 36.5; O2SAT 93; BMI 32.6
[2024-10-16] MEDS: APIXABAN 5 MG TABLET PO ×2 (08:20→21:36)
[2024-10-16] MEDS: Fluticasone/Salmeterol 232-14 Inhaler 1 PUFF INHALATION ×3 (08:21→21:37)
[2024-10-16] MEDS: buPROPion (XL) 300 MG TABLET.XL PO (08:22)
[2024-10-16 14:45] VITALS: BMI 32.6
[2024-10-16 17:26] VITALS: BP 140/77; PULSE 63; RESP 18; TEMP 37.1; O2SAT 97
[2024-10-16 21:00] VITALS: O2SAT 97
[2024-10-16 21:08] VITALS: BMI 32.6
[2024-10-16 21:29] VITALS: BP 140/79; PULSE 64; RESP 16; TEMP 36.6; O2SAT 98
[2024-10-16] MEDS: Fluticasone 0.05% 1 SPRAY NASAL.SRY 2 SPRAY NASAL (21:37)
[2024-10-17 00:05] VITALS: PULSE 67; O2SAT 97
[2024-10-17 03:20] VITALS: PULSE 66; O2SAT 95
[2024-10-17 08:03] VITALS: BP 113/64; PULSE 63; RESP 16; TEMP 36.6; O2SAT 99
[2024-10-17] MEDS: APIXABAN 5 MG TABLET PO ×2 (08:27→22:42)
[2024-10-17] MEDS: buPROPion (XL) 300 MG TABLET.XL PO (08:28)
[2024-10-17 10:06] VITALS: BMI 32.6
--- NOTE | 2024-10-17 12:19 | PCM.PROGNOTE ---
Subjective Subjective Afebrile VSS -blood pressure over the past 48 hours has ranged from 96/56 to 140/79. The heart rate has ranged from 61-68 on the vital signs. On her fit bit it is ranging from 39-127 but, we do not know how long she is in the 30's or the 120's. She has no presyncope and no syncope. She is able to do 3 hours of therapy daily and she is making progress. Maintaining appropriate oxygen saturation on RA Oral intake - FOOD good FLUIDS fair Discussed with nursing - no problems that need addressed Reviewed the THERAPY notes Medication list reviewed. Sleeping well at night. Still c/o feeling tired in the AM and having trouble getting motivated. She is frustrated at not improving faster. she is also frustrated that if she gets distracted at all she loses her balance when ambulating. She is tearful and feeling depressed. She denies feeling anxious and she does not have insomnia. Bupropion was increased to 300 mg daily starting yesterday. Objective Data Objective Data Vital Signs: Vital Signs Temp Pulse Resp BP Pulse Ox O2 Del Method O2 Flow Rate 97.9 F 63 16 113/64 99 Room Air 2 10/17/24 08:03 10/17/24 08:03 10/17/24 08:03 10/17/24 08:03 10/17/24 08:03 10/17/24 08:03 10/17/24 03:20 FiO2 98 10/08/24 10:25 Oxygen Flow Rate (L/min) 2 Oxygen Delivery Method Room Air Weight: 177 lb 7.554 oz Body Mass Index (BMI) 32.6 Intake & Output: Intake and Output for Last 24 Hours 10/15/24 10/16/24 10/17/24 23:59 23:59 23:59 Intake Total 1150 / 1150 1140 / 1140 200 / 200 Output Total 450 / 450 1000 / 1000 250 / 250 Balance 700 / 700 140 / 140 -50 / -50 Lab / Micro Data 10/07/24 06:54 10/07/24 06:54 Micro: Microbiology 10/06/24 11:25 Mucosa - Throat Streptococcus pyogenes (PCR) - Final 09/30/24 13:15 Stool Stool Occult Blood (FILI) - Final 09/25/24 05:40 Urine Catheter - Catheter Urine Culture - Final Culture exhibits no growth. Social Homelessness:: Sheltered Physical Exam Const alert Constitutional Narrative: Very tearful and down today. Wants to go home and now that it her only goal. General Appearance: cooperative Resp clear to auscultation bilaterally Effort and Inspection: Negative for tachypneic Cardio regular rhythm and no gallops Cardio Narrative: Bradycardic in the low 50'<del>s</del>. No ectopy. I reviewed the HR she has on her Fit BIT. GI normal to inspection, nondistended, normoactive bowel sounds, soft to palpation and non-tender Extremity no calf tenderness General Extremity: Negative for edema Neuro Neuro Narrative: Less facial droop. She is ambulating with a quad cane now. Loses balance easily. She is able to do 9 sit to stands now....up from 6 last week. She completed the TUG in 60 sec.....down from 2 minutes. Left leg is improving, LUE is still mostly flaccid and she has it in a sling when working with PT. Assessment & Plan Assessment/Plan (1) Physical debility: (2) Left hemiplegia: (3) Facial droop: (4) Cognitive deficits: (5) Acute right MCA stroke: (6) Paroxysmal atrial fibrillation: (7) Anxiety and depression: (8) SSS (sick sinus syndrome): PLAN: Plan 1. Continue therapy 2. Check a CBC and BMP in the a.m. 3. Hold the Trazodone tonight to see if the fatigue in the AM improves. 4. Continue the Wellbutrin at 300 mg daily. 5. If she is still feeling fatigued in the AM off the Trazodone then consider a trial of holding Buspar. I suspect the fatigue has everything to do with depression. We discussed psychotherapy at [place] and she is considering. [facility] will give her a list of local providers to choose from. 6. Palliative care consult to discuss realistic goals. Her goal is to get out of rehab and home. We have talked about having her 15 YO dtr come in for family training but, Rajwinder is against this idea. Will discuss this with Matthew and continue to recommend she come in for training and to make sure she is comfortable providing the assistance Rajwinder will need at home. I suspect that the reality of her situation and persistent neurologic deficits are setting in. She may not be able to return to her previous profession and level of independence and can not see that she can still be functional and have quality of life.......life will just be different and she will have to adjust to her disabilities and find other things she can do. 7. She is not symptomatic with fluctuations in HR. The last overnight trending pulse ox did not show any significant periods of marked bradycardia and it did not show any tachycardia............will order an event monitor at [place] and have her follow up with cardiology. Consult Dr. Guzman from cardiology to assess for SSS and she if there is anything else we can do to keep her from being bradycardic/tachycardic. 1. + hx of PAF. Admitted to ischemic/embolic stroke. Was not on AC. 2. Came to rehab on flecainide 100 mg BID and nothing to block the AV node. Went into AF with RVR and was transferred to PCU. Received Diltiazem and amiodarone and converted. See by Dr. Friend and RX'd Lopressor and Flecainde. Even with Lopressor 12.5 BD she was severely bradycardic sith a low BP and lopressor was discontinued. 3. HR was uncontrolled with Flecainide alone and ranged from 40-140. D/W Dr. Ramirez and he recommended. Amiodarone 200 mg BID for a few weeks and then decrease to 200 mg daily. On 200 mg BID the HR ranged from the mid 30's to 65. D/W Dr. Friend and the amiodarone was decreased to 100 mg daily. Yesterday on 100 mg daily the HR ranged from 73-140. She was given an extra 100 mg of amiodarone last night. The HR overnight ranged from 45-100. HR today is in the 50's. 4. TSH and AM cortisol are normal. 5. I suspect she has SSS and may need a PM so that we can use medication to control the fast HR's but, not worry that the HR is going to drop into the 30's. 6. Will re-consult cardiology. 7. Cardiology consulted on 10/07/24. Nursing notified [facility]. As of 10/08/24 at 0910 she has not been seen. Dr. Comer was network operations manager for consults for 10/07/24. Charges/Coding Visit Charges Inpatient E&M: 23416 Subs Hosp L1
--- NOTE | 2024-10-17 15:04 | CON.PCM.PA_ITS ---
[facility] Medical History Obesity (BMI 30.0-34.9) Asthma Anxiety and depression History of heavy vaginal bleeding Paroxysmal atrial fibrillation Glucose intolerance Hyperlipidemia Home Medications ?Medication ?Instructions ?Recorded ?Last Taken ?Type albuterol sulfate 90 mcg/actuation 2 puff inhalation Q 6H PRN SOB, 09/18/24 Unknown History aerosol inhaler Wheezing apixaban 5 mg tablet (Eliquis) 5 mg PO BID Stroke 08/0709/18/24 History citalopram 10 mg tablet (Celexa) 10 mg PO DAILY depres emil 09/18/24 09/18/24 History flecainide 100 mg tablet 100 mg PO Q12H arrhythmias 0 09/18/24 09/18/24 History fluticasone 250 mcg-salmeterol 50 1 inh inhalation Q12 H lungs 09/18/24 Unknown History mcg/dose blistr powdr for inhalation (Advair Diskus) montelukast 10 mg tablet 10 mg PO QHS allergies 09/1809/17/24 History (Singulair) rosuvastatin 40 mg tablet (Crestor) 40 mg PO QHS carlos sterol 09/18/24 09/17/24 History topiramate 25 mg tablet (Topamax) 25 mg PO BID migrain es 09/18/24 09/18/24 History Allergy/AdvReac Type Severity Reaction Status Date / Time Penicillins Allergy Unknown Hives Verified 09/18/24 13:32 Family History Mother , with dementia at 78 No problems noted. Father , at 78 YOA due to complications of pancreatectomy for multiple pancreatic cysts No problems noted. Sister Diabetes Kidney disease Social History household members: spouse and other details: name is Matthew housing: other details: 2 story house number of children: 2 Smoking Status: Never smoker alcohol intake: current alcohol intake frequency: holidays/special occasions only Homelessness:: Sheltered ROS ROS Narrative pt is able to participate Constitutional Constitutional: Reports systems reviewed and no addt'l complaints, except as documented Eyes Eyes: Reports other Details: wears corrective lenses ENT HEENT: Reports other Details: L facial droop Cardiovascular Cardiovascular: Reports flutter in chest and weakness in extremities Respiratory/Chest Respiratory/Chest: Reports systems reviewed and no addt'l complaints, except as documented Gastrointestinal Gastrointestinal: Reports systems reviewed and no addt'l complaints, except as documented Genitourinary Genitourinary: Reports systems reviewed and no addt'l complaints, except as documented Musculoskeletal Musculoskeletal: Reports muscle weakness Integumentary Integumentary: Reports systems reviewed and no addt'l complaints, except as documented Neurologic Neurologic: Reports other Details: severe LUE weakness and L facial droop, Less severe LLE weakness Psychiatric Psychiatric: Reports depression, mood swings and panic attacks Endocrine Endocrinology: Reports systems reviewed and no addt'l complaints, except as documented Hematologic/Lymphatic Hematologic/Lymphatic: Reports systems reviewed and no addt'l complaints, except as documented Allergic/Immunologic Allergic/Immunologic: Reports systems reviewed and no addt'l complaints, except as documented Physical Exam Const alert and oriented x3 Constitutional Narrative: sadness today General Appearance: cooperative HEENT normocephalic Eyes PERRL Neck Neck Narrative: muscle weakness in the neck lists to the L, ring pillow in use Lymph Lymphatic: no lymphadenopathy noted Resp normal respiratory effort Cardio Cardio Narrative: tachy/diana. Cardiology consult was done Rate: bradycardia and tachycardic GI normal to inspection, nondistended, normoactive bowel sounds Extremity normal capillary refill Skin no rashes or lesions noted Neuro Neuro Narrative: L facial droop, Neck weakness during extended times of sitting, splint to LUE RT LUE weakness, LLE weakness but utilizing a quad cane and standby assist. Speech: speech normal Psych Mood & Affect: depressed and anxious Charges/Coding Palliative Care Palliative Care: 79769 New Pt Consult 80+ min HPI Current admission Current Code Status: Full code Associated Diagnosis: debility following R MCA stroke Consult Data Date of Consult: 10/17/24 Location of consult: in patient rehab Reason for referral: goals of care Referral source: Dr. Costello Palliative care diagnosis (Summary list): debility, s/p CVA Palliative care services/treatment (Accepted, as consult): accepted Case discussed with referring provider: goals of care post discharge HPI Narrative HPI Narrative: 10/17/24: Prior to meeting with the pt at bedside, I did review documentation from current and previous hospitalizations, labs and radiological studies. I also met with Dr. Costello to discuss the reason for consult. I then met with Rajwinder in her room. She was sitting up in a bedside recliner, talking to the SW. She did finish up and I then introduced myself and the concept of palliative care, which she voluntarily accepted our services. Rajwinder was tearful upon my introduction. She states that she is frustrated with her progress and feels that it is going very slowly. 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 I did ask Rajwinder what she would tell herself as one of her patients? She did state that she would be encouraging that she is doing well. I asked her what she would say if her patient was frustrated with the time it was taken to show progress? She stated that she would tell them that it could be up to six months. SHe did smile when she realized that she has only been at inpatient rehab since 09/18/24, which is just over one month. We discussed giving herself estuardo and being kind to herself. She was able to verbalize the progress she has made, thus far. She was able to ambulate to the restroom with the assistance of a quad cane with only standby assist. She stated agreement and did smile We then talked about grieving and that process. She states that she understands that she is grieving and angry at herself. We did talk through this and discussed the power in saying positive affirmations to herself. She did like that idea. Following our discussion about her mental status and dealing with her CVA, we addressed her goal of care of going home. She stated that she has a 15 year old daughter at home that can help her. She did state that she is neurodivergent, on the Autism spectrum and ADHD. We discussed how this could effect her daughter, especialy if Rajwinder should have a fall at home. I suggested that there be someone to help her during the day beside her daughter. She did state that her sister is retired and only lives 10 miles away. She did state that she may be an option for assistance. We also discussed the posibility of home health aide to come in a hour of two per day or several times a week. She stated that she was not sure if she could afford it. WHIT Vazquez can provide some resources for her to contact. The patients did come in for some training to assist at home, as well. There is concern about the 15 year old coming in for training as she does not like to leave the house. Rajwinder did say that she would go to TCU for continued rehab or a facility closer to her home. I did speak to WHIT, in which she stated that her insurance would not pay for it. Pt states inability to pay out of pocket. Pt may have some jainism family memebers that may be able to help out. Rajwinder has been having irregular heart rhythms. Possible sick sinus syndrome. Cardiology meeting with pt later today. Will continue conversations with Rawjinder for goals of car and support going forward. 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 Patient apparently did not suffer an embolic CVA on 09/11/2024 transferred to [facility] with concern for large vessel occlusion patient however did not require thrombectomy. Patient was stabilized and transferred to the inpatient rehab unit. Patient upon arrival was found to have labile heart rates going as high as 150. Patient is on flecainide for rate control however heart rate was elevated despite the flecainide. The hospitalist on-call during the night was notified did give additional doses of beta-blockers without much improvement. Case was discussed with the attending at the inpatient rehab unit decision was made to transfer the patient to the progressive care unit for inpatient management of her heart rate Palliative Assessment Advanced Directive - Current Admission Advance Directive: Advance Directive ON ADMISSION - REFERENCE 3 Do you have a Healthcare No 09/23/24 14:40 Living Will? Do you have a Healthcare Power No 09/23/24 14:40 of Earthmoving Labourer? Do You Want Additional Declined 09/23/24 14:40 Information on Advanced Directives or Healthcare Proxy/DPOA comments: Psychosocial/Spiritual Information Living situation/Marital status: lives with and daughter. Has one daughter in college [place]ographic location: [place] (30 miles from [place]) Supports: family Voodoo/Irina or spiritual preference: Mormon has a jainism family that is supportive Spiritual distress: pt has been meeting with annetta Ray as well as members of her jainism family. 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 She has 2 cats Symptoms Palliative performance scale: 60 Palliative prognostic index: 0 Dyspnea symptoms: None Constipation symptoms: None Nausea symptoms: None Vomiting symptoms: None Depression symptoms: Severe Anorexia symptoms: None Cough symptoms: None Insomnia symptoms: Moderate Diarrhea symptoms: None Fatigue symptoms: Moderate Weakness symptoms: Severe Confusion symptoms: None Side Effects & Interventions: L sided weakness. LUE significant debility and L facial droop. LLE is weak but she is ambulating with standby assistance Objective Data Objective Data last labs on 10/07/24 Vital Signs: Vital Signs Temp Pulse Resp BP Pulse Ox O2 Del Method O2 Flow Rate 97.9 F 63 16 113/64 99 Room Air 2 10/17/24 08:03 10/17/24 08:03 10/17/24 08:03 10/17/24 08:03 10/17/24 08:03 10/17/24 08:03 10/17/24 03:20 FiO2 98 10/08/24 10:25 Oxygen Flow Rate (L/min) 2 Oxygen Delivery Method Room Air Weight: 177 lb 7.554 oz Body Mass Index (BMI) 32.6 Intake & Output: Intake and Output for Last 24 Hours 10/15/24 10/16/24 10/17/24 23:59 23:59 23:59 Intake Total 1150 / 1150 1140 / 1140 500 / 500 Output Total 450 / 450 1000 / 1000 450 / 450 Balance 700 / 700 140 / 140 50 / 50 Lab / Micro Data 10/07/24 06:54 10/07/24 06:54 Micro: Microbiology 10/06/24 11:25 Mucosa - Throat Streptococcus pyogenes (PCR) - Final 09/30/24 13:15 Stool Stool Occult Blood (FILI) - Final 09/25/24 05:40 Urine Catheter - Catheter Urine Culture - Final Culture exhibits no growth. Rhythm Strip Rhythm Strip: intermittent diana/tachy Social Homelessness:: Sheltered Impressions & Recommendations Patient & Family Issues discussed with the patient and family: outpatient psych, assistance at home Patient goal: return home Family goal: no family available Ethical & Legal Ethical and legal: none Impressions Impressions: pt is going through the various stages of grieving Recommentation Palliative recommendations: outpatient Psych, HHC, assistance from jainism family Encouter Achieved as a result of this Palliative Care Encounter: [ [id number], [phone], [phone]] minutes were spent in total for this visit which consisted, primarily of counseling and education dealing with the complex and emotionally intense issues of symptom management and palliative care in the setting of serious and potentially life-threatening illness. Review of documentation, labs and radiological studies. ?Patient/family had the opportunity to ask questions Plan (1) Physical debility: PLAN: continue with therapies (2) Left hemiplegia: PLAN: medical management per IDT (3) SSS (sick sinus syndrome): PLAN: cardiology consult (4) Palliative care encounter: PLAN: recommend pt receive outpatient psych recommend stroke support group continue inpatient palliative support for goals of care conversations and support Recommend family contact jainism family to see if they are able to offer any assistance Assistance from sister
--- NOTE | 2024-10-17 15:53 | CASEMGMT ---
Social Work IDT notified this worker that pt was tearful today, coming into the realization for her longer term deficits from stroke, and the need to plan realistically for DC. - SW spoke with pt at bedside. SW asked how pt was doing and she immediately starting getting emotional. Pt acknowledged her emotions being heighten today. SW explored pt's feelings further. Conversed for an extended period of time. SW validated pt's feelings with loss of independence, adjustments with physical abilities, and not being able to return to work/soon. SW recommended counseling at DC, to have a non-bias libertarian outside of family and friends, that is a safe space to have a productive conversation and assist with coping and adjustments moving forward. Pt agreed. SW to provide resources, but acknowledged pt lives in [facility], and resources available to this worker may be limited. Pt offered to make an appt prior to DC, if pt elected. SW discussed those difficult topics with work abilities, driving, and who would be assisting pt at home. SW revisited applying for disability to assist with finances. SW discussed who could assist pt at home since cannot take time off work. Pt stated her 15 yo dtr and sister. Sister is completing therapy training on 10/21, but dtr has not scheduled. SW inquired how pt felt with dtr assisting her at home. Pt voiced no concerns and felt pt could do it. After further discussion, pt disclosed dtr has autism and ADHD, but still voiced concerns. Pt stated her sister lives closeby and is retired, so is will be available. SW inquired about hiring EXCHANGE UNDERWRITING CONSULTANT. Pt apprehensive about cost. SW acknowledged, but noted the risk of caregiver burnout with her and sister, especially since is working full-time in addition. SW suggested hiring EXCHANGE UNDERWRITING CONSULTANT for Saturdays to allow everyone a break and have structure with knowing that day is covered by an aide. Pt expressed interest in that idea. SW discussed further DC planning. Pt identified needs for a quad cane, transport w/c and BSC. Pt also stated although [facility] SW to coordinate needs at time of DC. At this time, Kassandra Hebert NP, entered room, and this worker offered ongoing support and assistance. Pt appreciative. Taylor Shea VENUE COORDINATOR RESEARCH AND DEVELOPMENT CHEMIST
[2024-10-17 17:48] VITALS: BP 110/66; PULSE 68; RESP 15; TEMP 37; O2SAT 99
--- NOTE | 2024-10-17 19:20 | PCM.PN.CARD ---
Subjective Subjective Patient denies any syncope, dizziness etc. She has history of paroxysmal A-fib. We were reconsulted as the patient was very concerned that her Fitbit was giving her heart rate in the 30s and then in the 120s. Since telemetry is not available in the rehab unit she has been on trending pulse ox to see if she has persistent bradycardia or tachycardia. This has not been the case. Objective Data Vital Signs: Vital Signs Temp Pulse Resp BP Pulse Ox O2 Del Method O2 Flow Rate 98.6 F 68 15 110/66 99 Room Air 2 10/17/24 17:48 10/17/24 17:48 10/17/24 17:48 10/17/24 17:48 10/17/24 17:48 10/17/24 17:48 10/17/24 03:20 FiO2 98 10/08/24 10:25 Oxygen Flow Rate (L/min) 2 Oxygen Delivery Method Room Air Weight: 177 lb 7.554 oz Body Mass Index (BMI) 32.6 Intake & Output: Intake and Output for Last 24 Hours 10/15/24 10/16/24 10/17/24 23:59 23:59 23:59 Intake Total 1150 / 1150 1140 / 1140 740 / 740 Output Total 450 / 450 1000 / 1000 675 / 675 Balance 700 / 700 140 / 140 65 / 65 Lab / Micro Data 10/07/24 06:54 10/07/24 06:54 Rhythm Strip Rhythm Strip: intermittent diana/tachy Cardiology Labs/Tests Rhythm: EKG: ECHO: Stress Test: Cardiac Cath: PCI: CT Surgery: Holter monitor: EPS: PPM: CXR: Chest CT Scan: Physical Exam Const alert and oriented x3 HEENT normocephalic Cardio regular rate Assessment & Plan Assessment/Plan (1) Paroxysmal atrial fibrillation: PLAN: Continue current medications. She appears to be in sinus rhythm currently. It is possible that when she goes into A-fib her rate is irregular and her device is calculating the short R-R interval as tachycardia and subsequent longer RR intervals with bradycardia. Discussed this with the patient. Suggested event monitoring or if she gets these episodes every day then 24 or 48-hour Holter. Patient is agreeable. At this time we do not have a documented indication for a pacemaker. If event monitoring reveals significant tachy bradycardia syndrome or bradycardia then we will consider it.
[2024-10-17 22:00] VITALS: O2SAT 94
[2024-10-17 22:14] VITALS: BP 113/70; PULSE 59; RESP 16; TEMP 36.9; O2SAT 94
[2024-10-17] MEDS: Fluticasone/Salmeterol 232-14 Inhaler 1 PUFF INHALATION (22:39)
[2024-10-17] MEDS: Fluticasone 0.05% 1 SPRAY NASAL.SRY 2 SPRAY NASAL (22:39)
[2024-10-18] VITALS: PULSE 64; O2SAT 97
[2024-10-18 03:00] VITALS: PULSE 72; O2SAT 98
[2024-10-18 03:26] VITALS: BMI 32.6
[2024-10-18 05:59] VITALS: BP 100/59; PULSE 60; RESP 16; TEMP 36.8; O2SAT 96
[2024-10-18 08:09] LABS: Hematocrit 35.3 % (37-47); Hemoglobin 11.6 g/dL (12.0-15.0); Mean Corp Hgb Conc 32.9 g/dL (32-36); Mean Corpuscular Volume 84.9 fL (81-99); Mean Platelet Vol. 10.1 fl (6.2-12.0); Platelet Count 267 K/mm3 (150-450); RBC Distribution Width CV 14.5 % (11.6-14.6); RBC Distribution Width SD 44.5 fl (35.1-43.9); Red Blood Count 4.16 M/mm3 (4.2-5.4); White Blood Count 6.1 K/mm3 (4.4-11.0)
[2024-10-18 08:42] LABS: Anion Gap 12 (5-15); BUN 16 mg/dL (4-19); BUN/Creat Ratio 22.4 RATIO (10-20); Calcium,Total 9.6 mg/dL (7.6-11.0); Carbon Dioxide 24.1 mmol/L (21.0-32.0); Chloride 104 mmol/L (98-108); Estimated Creatinine Clearance 88.60 ml/min (50-250); Glucose 107 mg/dL (70-99); Potassium 4.0 mmol/L (3.3-5.1)
[2024-10-18] MEDS: APIXABAN 5 MG TABLET PO ×2 (08:58→20:12)
[2024-10-18] MEDS: buPROPion (XL) 300 MG TABLET.XL PO (08:58)
[2024-10-18] MEDS: Fluticasone/Salmeterol 232-14 Inhaler 1 PUFF INHALATION ×2 (08:59→20:12)
[2024-10-18 09:04] VITALS: BP 111/69; PULSE 60
--- NOTE | 2024-10-18 10:37 | PN.PALL_ITS ---
Subjective Subjective 10/18/24: Prior to meeting with the patient at bedside I did review documentation for the last 24 hours as well as spoke with Dr. Costello about the conversation I had with the patient yesterday. I then met with Rajwinder at bedside. She states that she is feeling better today from an emotional standpoint. I did clarify her with her that I spoke to web content & social media manager yesterday about SNF's in which she feels that she may not qualify. Rajwinder stated understanding and states that she began talking to family members yesterday about assistance at home. She states that her daughter goes to college but only has classes this semester on Tuesdays and and would be able to provide some assistance. She also has a niece that lives near her who could provide assistance in addition to her sister. I did encourage her to reach out to her christianity family to see what assistance they could offer her, as well. Rajwinder feels that she does have a good plan in place going forward for discharge home. We then discussed her emotional status currently. She states that she feels that the conversation we had yesterday was helpful. We did discuss the possibility of going to the stroke support group here at [facility]. She would also like to find a stroke support group closer to her home. She states that she would be interested in a referral to palliative care on an outpatient basis for an extra layer of support going forward. Palliative care will continue to follow during admission for an additional layer support. I did update, Taylor web content & social media manager for inpatient rehab. 10/17/24: Prior to meeting with the pt at bedside, I did review documentation from current and previous hospitalizations, labs and radiological studies. I also met with Dr. Costello to discuss the reason for consult. I then met with Rajwinder in her room. She was sitting up in a bedside recliner, talking to the . She did finish up and I then introduced myself and the concept of palliative care, which she voluntarily accepted our services. Rajwinder was tearful upon my introduction. She states that she is frustrated with her progress and feels that it is going very slowly. 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 I did ask Rajwinder what she would tell herself as one of her patients? She did state that she would be encouraging that she is doing well. I asked her what she would say if her patient was frustrated with the time it was taken to show progress? She stated that she would tell them that it could be up to six months. She did smile when she realized that she has only been at inpatient rehab since 09/18/24, which is just over one month. We discussed giving herself estuardo and being kind to herself. She was able to verbalize the progress she has made, thus far. She was able to ambulate to the restroom with the assistance of a quad cane with only standby assist. She stated agreement and did smile We then talked about grieving and that process. She states that she understands that she is grieving and angry at herself. We did talk through this and discussed the power in saying positive affirmations to herself. She did like that idea. Following our discussion about her mental status and dealing with her CVA, we addressed her goal of care of going home. She stated that she has a 15 year old daughter at home that can help her. She did state that she is neurodivergent, on the Autism spectrum and ADHD. We discussed how this could effect her daughter, especialy if Rajwinder should have a fall at home. I suggested that there be someone to help her during the day beside her daughter. She did state that her sister is retired and only lives 10 miles away. She did state that she may be an option for assistance. We also discussed the posibility of home health aide to come in a hour of two per day or several times a week. She stated that she was not sure if she could afford it. [facility] can provide some resources for her to contact. The patients did come in for some training to assist at home, as well. There is concern about the 15 year old coming in for training as she does not like to leave the house. Rajwinder did say that she would go to TCU for continued rehab or a facility closer to her home. I did speak to [facility], in which she stated that her insurance would not pay for it. Pt states inability to pay out of pocket. Pt may have some christianity family memebers that may be able to help out. Rajwinder has been having irregular heart rhythms. Possible sick sinus syndrome. Cardiology meeting with pt later today. Will continue conversations with Rajwinder for goals of car and support going forward. 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 Patient apparently did not suffer an embolic CVA on 09/11/2024 transferred to [facility] with concern for large vessel occlusion patient however did not require thrombectomy. Patient was stabilized and transferred to the inpatient rehab unit. Patient upon arrival was found to have labile heart rates going as high as 150. Patient is on flecainide for rate control however heart rate was elevated despite the flecainide. The hospitalist on-call during the night was notified did give additional doses of beta-blockers without much improvement. Case was discussed with the attending at the inpatient rehab unit decision was made to transfer the patient to the progressive care unit for inpatient management of her heart rate Objective Data Objective Data Vital Signs: Vital Signs Temp Pulse Resp BP Pulse Ox O2 Del Method O2 Flow Rate 98.2 F 60 16 111/69 96 Room Air 2 10/18/24 05:59 10/18/24 09:04 10/18/24 05:59 10/18/24 09:04 10/18/24 05:59 10/18/24 05:59 10/18/24 03:00 FiO2 98 10/08/24 10:25 Oxygen Flow Rate (L/min) 2 Oxygen Delivery Method Room Air Weight: 177 lb 7.554 oz Body Mass Index (BMI) 32.6 Intake & Output: Intake and Output for Last 24 Hours 10/16/24 10/17/24 10/18/24 23:59 23:59 23:59 Intake Total 1140 / 1140 740 / 915 615 / 615 Output Total 1000 / 1000 675 / 675 200 / 200 Balance 140 / 140 65 / 240 415 / 415 Lab / Micro Data Attestation: I reviewed the patient's lab results. 10/18/24 07:50 10/18/24 07:37 Labs: Laboratory Results - last 24 hr 10/18/24 07:37: Sodium 140, Potassium 4.0, Chloride 104, Carbon Dioxide 24.1, Anion Gap 12, BUN 16, Creatinine 0.73, Estim Creat Clear Calc 88.60, Est GFR (MDRD) Non-Af 99, BUN/Creatinine Ratio 22.4 H, Glucose 107 H, Calcium 9.6 10/18/24 07:50: WBC 6.1, RBC 4.16 L, Hgb 11.6 L, Hct 35.3 L, MCV 84.9, MCH 27.9, MCHC 32.9, RDW Std Deviation 44.5 H, RDW Coeff of Royce 14.5, Plt Count 267, MPV 10.1 Micro: Microbiology 10/06/24 11:25 Mucosa - Throat Streptococcus pyogenes (PCR) - Final 09/30/24 13:15 Stool Stool Occult Blood (FILI) - Final 09/25/24 05:40 Urine Catheter - Catheter Urine Culture - Final Culture exhibits no growth. Rhythm Strip Rhythm Strip: intermittent diana/tachy Social Homelessness:: Sheltered Physical Exam Const oriented x3 and no apparent distress General Appearance: cooperative Orientation / Consciousness: awake, oriented to person, oriented to place and oriented to time Exam Limitations: no limitations HEENT normocephalic Face and Sinus: other Left sided facial droop Eyes PERRL Eyes Narrative: Wears corrective lenses Neck Neck Narrative: Is utilizing a pillow to prop her head up as she does have weakness in the left side of her neck General: normal visual inspection Lymph Lymphatic: no lymphadenopathy noted Chest inspection of chest normal Resp normal respiratory effort Effort and Inspection: able to speak in complete sentences Cardio Cardio Narrative: Tacky/bradycardia Rate: bradycardia and tachycardic GI normal to inspection, nondistended, normoactive bowel sounds Palpation: soft no CVA tenderness Back/Spine no CVA tenderness Extremity Extremity Narrative: Contracture noted to the left upper extremity related to paralysis from CVA. Splint in place. Left lower extremity weakness Peripheral Pulses: Yes pulses 2+ throughout Skin no rashes or lesions noted Neuro oriented x3 Neuro Narrative: Continued left sided weakness. Improvement in 2 left lower extremity. Patient is able to ambulate with a quad cane. Patient states that she has had improvements since yesterday. Psych Psych Narrative: Patient feels better today. From a subjective standpoint. From an objective standpoint she is more interactive and has better eye contact than yesterday. She is not tearful today Mood & Affect: depressed, anxious and other Although improved since yesterday Charges/Coding Palliative Care Palliative Care: [id number] Follow up 50+ min Consulation Summary Consult Data Date of Consult: 10/17/24 Location of consult: in patient rehab Reason for referral: goals of care Referral source: Dr. Costello Palliative care diagnosis (Summary list): debility, s/p CVA Palliative care services/treatment (Accepted, as consult): accepted Palliative Assessment Advanced Directive - Current Admission Advance Directive: Advance Directive ON ADMISSION - REFERENCE 3 Do you have a Healthcare No 09/23/24 14:40 Living Will? Do you have a Healthcare Power No 09/23/24 14:40 of Buffing Machine Tender? Do You Want Additional Declined 09/23/24 14:40 Information on Advanced Directives or Healthcare Proxy/DPOA comments: -none formal Symptoms Dyspnea symptoms: None Constipation symptoms: None Nausea symptoms: None Vomiting symptoms: None Depression symptoms: Mild Anorexia symptoms: None Cough symptoms: None Insomnia symptoms: Mild Diarrhea symptoms: None Fatigue symptoms: Mild Weakness symptoms: Severe Confusion symptoms: None Side Effects & Interventions: Weakness to the left upper extremity is severe. Weakness to the left lower extremity is moderate. Impression & Recommendations Impressions Impressions: Patient would benefit from an extra layer of support with outpatient palliative. Patient is agreeable. Recommentation Palliative recommendations: outpatient Psych, [facility], assistance from christianity family, palliative care on an outpatient basis Encouter Achieved as a result of this Palliative Care Encounter: [ [id number], [id number]] minutes were spent in total for this visit which consisted, primarily of counseling and education dealing with the complex and emotionally intense issues of symptom management and palliative care in the setting of serious and potentially life-threatening illness. Review of documentation, labs and radiological studies. ?Patient/family had the opportunity to ask questions Plan (1) Physical debility: PLAN: Continue therapies (2) Acute right MCA stroke: PLAN: Medical management per primary team (3) Paroxysmal atrial fibrillation: PLAN: Medical management per primary team (4) Left hemiplegia: PLAN: Continue with therapies (5) Palliative care encounter: PLAN: - Patient is agreeable to palliative care outpatient services for continued support - Patient would benefit from stroke support groups - Patient plans to reach out to her christianity family to see if they have any services they can offer her. - Patient is speaking to family members to provide assistance during the day until her can return home from work ROS Constitutional Constitutional: Reports systems reviewed and no addt'l complaints, except as documented Eyes Eyes: Reports systems reviewed and no addt'l complaints, except as documented ENT HEENT: Reports systems reviewed and no addt'l complaints, except as documented Cardiovascular Cardiovascular: Reports fatigue Respiratory/Chest Respiratory/Chest: Reports systems reviewed and no addt'l complaints, except as documented Gastrointestinal Gastrointestinal: Reports systems reviewed and no addt'l complaints, except as documented Genitourinary Genitourinary: Reports systems reviewed and no addt'l complaints, except as documented Musculoskeletal Musculoskeletal: Reports numbness Integumentary Integumentary: Reports systems reviewed and no addt'l complaints, except as documented Neurologic Neurologic: Reports as per HPI, abnormal gait, sensory deficit and other Details: Left upper extremity paralysis, left lower extremity weakness Psychiatric Psychiatric: Reports anxiety, depression and other Details: Improved from yesterday Endocrine Endocrinology: Reports systems reviewed and no addt'l complaints, except as documented Hematologic/Lymphatic Hematologic/Lymphatic: Reports systems reviewed and no addt'l complaints, except as documented Allergic/Immunologic Allergic/Immunologic: Reports systems reviewed and no addt'l complaints, except as documented
[2024-10-18 12:33] VITALS: BMI 32.6
--- NOTE | 2024-10-18 13:16 | PN_ITS ---
Subjective Subjective Afebrile Heart rate has ranged from 59-72 over the past 24 hours. Blood pressure has ranged from 100/59 to 113/70. All lab from today was personally reviewed. Hemoglobin is stable at 11.6 and the white blood cell count is normal. Platelets are within normal limits. Sodium is stable at 140 and the potassium is stable at 4.0. The BUN is 16 with a creatinine of 0.73 which is stable. I reviewed Dr. Guzman's consult and appreciate his input. Will order a 30- day event monitor at discharge from rehab. having a better day today. Still tearful when we are talking about DC and need for continued therapy. Matthew, dtelinor and her sister are coming in Monday for family training. Rajwinder says she slept well without the trazodone so we are going to discontinue it. Appetite is good. She had a good day with therapy and is less emotional today than yesterday. She now has a plan for how she is going to get help for when she gets home. She is now willing to have her dtr come in for training. Not lightheaded today. No dysuria, CP or abd pain. Objective Data Objective Data Vital Signs: Vital Signs Temp Pulse Resp BP Pulse Ox O2 Del Method O2 Flow Rate 98.2 F 60 16 111/69 96 Room Air 2 10/18/24 05:59 10/18/24 09:04 10/18/24 05:59 10/18/24 09:04 10/18/24 05:59 10/18/24 05:59 10/18/24 03:00 FiO2 98 10/08/24 10:25 Oxygen Flow Rate (L/min) 2 Oxygen Delivery Method Room Air Weight: 177 lb 7.554 oz Body Mass Index (BMI) 32.6 Intake & Output: Intake and Output for Last 24 Hours 10/16/24 10/17/24 10/18/24 23:59 23:59 23:59 Intake Total 1140 / 1140 740 / 915 855 / 855 Output Total 1000 / 1000 675 / 675 200 / 200 Balance 140 / 140 65 / 240 655 / 655 Lab / Micro Data 10/18/24 07:50 10/18/24 07:37 Labs: Laboratory Results - last 24 hr 10/18/24 07:37: Sodium 140, Potassium 4.0, Chloride 104, Carbon Dioxide 24.1, Anion Gap 12, BUN 16, Creatinine 0.73, Estim Creat Clear Calc 88.60, Est GFR (MDRD) Non-Af 99, BUN/Creatinine Ratio 22.4 H, Glucose 107 H, Calcium 9.6 10/18/24 07:50: WBC 6.1, RBC 4.16 L, Hgb 11.6 L, Hct 35.3 L, MCV 84.9, MCH 27.9, MCHC 32.9, RDW Std Deviation 44.5 H, RDW Coeff of Royce 14.5, Plt Count 267, MPV 10.1 Micro: Microbiology 10/06/24 11:25 Mucosa - Throat Streptococcus pyogenes (PCR) - Final 09/30/24 13:15 Stool Stool Occult Blood (FILI) - Final 09/25/24 05:40 Urine Catheter - Catheter Urine Culture - Final Culture exhibits no growth. Rhythm Strip Rhythm Strip: intermittent diana/tachy Social Homelessness:: Sheltered Physical Exam Const alert General Appearance: cooperative HEENT moist oral mucous membranes Resp clear to auscultation bilaterally Cardio regular rate and regular rhythm GI normal to inspection, nondistended, normoactive bowel sounds, soft to palpation and non-tender Assessment & Plan Assessment/Plan (1) Physical debility: (2) Left hemiplegia: (3) Facial droop: (4) Cognitive deficits: (5) Acute right MCA stroke: (6) Paroxysmal atrial fibrillation: (7) Anxiety and depression: (8) SSS (sick sinus syndrome): PLAN: Plan 1. Continue therapy 2. Will ask the health social work professor to give Rajwinder a list of local psychotherapist that she could follow-up with. 3. Family training on Monday 4. DC trazodone. Charges/Coding Visit Charges Inpatient E&M: 71007 Subs Hosp L1
[2024-10-18 18:00] VITALS: BP 122/70; PULSE 66; RESP 17; TEMP 36.8; O2SAT 95
[2024-10-18] MEDS: Fluticasone 0.05% 1 SPRAY NASAL.SRY 2 SPRAY NASAL (20:12)
[2024-10-18 20:21] VITALS: BP 123/71; PULSE 66; RESP 18; O2SAT 98
[2024-10-19] VITALS: PULSE 62; RESP 18; O2SAT 98
[2024-10-19 01:48] VITALS: BMI 32.6
[2024-10-19 03:00] VITALS: PULSE 62; RESP 17; O2SAT 98
[2024-10-19 06:00] VITALS: BP 126/64; PULSE 66; RESP 17; TEMP 36.7; O2SAT 97
[2024-10-19] MEDS: Fluticasone/Salmeterol 232-14 Inhaler 1 PUFF INHALATION ×2 (09:11→20:45)
[2024-10-19] MEDS: buPROPion (XL) 300 MG TABLET.XL PO (09:12)
[2024-10-19] MEDS: APIXABAN 5 MG TABLET PO ×2 (09:12→20:44)
[2024-10-19 12:32] VITALS: BMI 32.6
[2024-10-19 18:00] VITALS: BP 140/70; PULSE 82; RESP 17; TEMP 36.8; O2SAT 93
[2024-10-19 20:25] VITALS: BP 130/73; PULSE 68; RESP 17; O2SAT 98
[2024-10-19] MEDS: Fluticasone 0.05% 1 SPRAY NASAL.SRY 2 SPRAY NASAL (20:44)
[2024-10-20] VITALS: PULSE 68; RESP 17; O2SAT 100
[2024-10-20 00:53] VITALS: BMI 32.6
[2024-10-20 03:00] VITALS: PULSE 66; RESP 16; O2SAT 98
[2024-10-20 06:25] VITALS: BP 106/64; PULSE 67; RESP 16; TEMP 37.1; O2SAT 99
--- NOTE | 2024-10-20 07:04 | NURSING ---
late entry; 2300; pt called nurse asked her to listen to her heart. pt heart beat was normal at 62 bpm. pt states she thought if felt like her heart was going fast. reassurance provided and pt was instructed to call if this occurs again or she feels anything unusual.
[2024-10-20] MEDS: Fluticasone/Salmeterol 232-14 Inhaler 1 PUFF INHALATION ×2 (07:45→20:39)
[2024-10-20] MEDS: APIXABAN 5 MG TABLET PO ×2 (07:45→20:39)
[2024-10-20] MEDS: buPROPion (XL) 300 MG TABLET.XL PO (07:46)
[2024-10-20 08:00] VITALS: BP 96/56; PULSE 60
[2024-10-20 14:23] VITALS: BMI 32.6
[2024-10-20 18:00] VITALS: BP 132/81; PULSE 79; RESP 17; TEMP 36.7; O2SAT 94
[2024-10-20 20:37] VITALS: BMI 32.6
[2024-10-20] MEDS: Fluticasone 0.05% 1 SPRAY NASAL.SRY 2 SPRAY NASAL (20:39)
[2024-10-20 20:52] VITALS: PULSE 69; RESP 16; O2SAT 96
[2024-10-21 00:30] VITALS: PULSE 67; RESP 16; O2SAT 98
[2024-10-21 03:23] VITALS: PULSE 71; RESP 16; O2SAT 97
[2024-10-21 06:00] VITALS: BP 117/68; PULSE 71; RESP 15; TEMP 36.9; O2SAT 98
[2024-10-21] MEDS: Fluticasone/Salmeterol 232-14 Inhaler 1 PUFF INHALATION ×2 (07:51→20:35)
[2024-10-21] MEDS: APIXABAN 5 MG TABLET PO ×2 (07:52→20:33)
[2024-10-21] MEDS: buPROPion (XL) 300 MG TABLET.XL PO (07:52)
--- NOTE | 2024-10-21 08:56 | PCM.PROGNOTE ---
Subjective Subjective Rajwinder was seen on team rounds today. Family was present in the room. Family came in for training today. Afebrile VSS -no hypotension and no bradycardia recorded over the weekend. Maintaining appropriate oxygen saturation on RA Oral intake - FOOD good FLUIDS good Discussed with nursing - no problems that need addressed. Continent of both urine and stool. Has not slept well the past couple nights since the Trazodone was discontinued. Reviewed the THERAPY notes Medication list reviewed. She is c/o L shoulder pain. She tells me that this kept her awake last night......had been sleeping good with Trazodone but, she felt this was making her tired during the day and wanted it stopped. D/W OT and she is having increased tone. Rajwinder does not like taking medication and does not want another pill. Will try arthritis compounded cream BID to the left shoulder. Still having episodic tears. Not making good eye contact with me again when we are talking. Hangs her head down and mumbles making it difficult to understand her. Family was present when I was speaking with her. I observed her doing the TUG today and she is doing much better and was CGA. She is ambulating with a much better pace. she is c/o feeling wonky in her head.......not sure what this means. No vertigo, not dizzy, no SANCHES......trouble processing? Objective Data Objective Data Vital Signs: Vital Signs Temp Pulse Resp BP Pulse Ox O2 Del Method O2 Flow Rate 98.5 F 71 15 117/68 98 Nasal Cannula 2 10/21/24 06:00 10/21/24 06:00 10/21/24 06:00 10/21/24 06:00 10/21/24 06:00 10/21/24 06:00 10/21/24 06:00 FiO2 98 10/08/24 10:25 Oxygen Flow Rate (L/min) 2 Oxygen Delivery Method Nasal Cannula Weight: 177 lb 7.554 oz Body Mass Index (BMI) 32.6 Intake & Output: Intake and Output for Last 24 Hours 10/19/24 10/20/24 10/21/24 23:59 23:59 23:59 Intake Total 1245 / 1245 1580 / 1580 120 / 120 Output Total 1750 / 1750 1250 / 1250 275 / 275 Balance -505 / -505 330 / 330 -155 / -155 Lab / Micro Data 10/18/24 07:50 10/18/24 07:37 Micro: Microbiology 10/06/24 11:25 Mucosa - Throat Streptococcus pyogenes (PCR) - Final 09/30/24 13:15 Stool Stool Occult Blood (FILI) - Final 09/25/24 05:40 Urine Catheter - Catheter Urine Culture - Final Culture exhibits no growth. Rhythm Strip Rhythm Strip: intermittent diana/tachy Social Homelessness:: Sheltered Physical Exam Const Constitutional Narrative: Very flat affect today.......family is present. Hanging her head and mumbling so that I am having a difficult time understanding her. Appears ill kempt. Refused shower Monday and Monday nights. Refused to ambulate with nursing yesterday. HEENT moist oral mucous membranes Neck supple Resp clear to auscultation bilaterally Cardio regular rate and regular rhythm Cardio Narrative: no ectopy GI normal to inspection, nondistended, normoactive bowel sounds, soft to palpation and non-tender Extremity Extremity Narrative: The only pain I could illicit was biceps pain with palpation of the tendon. No pain with palpation of the L trapezius muscle. No swelling appreciated. No erythema and no increased warmth to touch of the joint. OT felt she had a lot of increased tone in the LUE and this may be causing the pain. General Extremity: Negative for edema Skin Rashes: no rashes Psych Psych Narrative: Affect is very flat today. She has been having tearful episodes with staff. She is mumbling when she speaks to me and making it difficult to understand her. Refusing shower over the weekend. Appears unkempt. Mood & Affect: depressed Assessment & Plan Assessment/Plan (1) Physical debility: (2) Left hemiplegia: (3) Facial droop: (4) Cognitive deficits: (5) Acute right MCA stroke: (6) Paroxysmal atrial fibrillation: (7) Anxiety and depression: (8) SSS (sick sinus syndrome): (9) Biceps tendonitis on left: PLAN: Plan 1. Continue therapy 2. Hold Buspar to see if the head sensation resolves. 3. Compounded arthritis cream to the left shoulder twice daily............ if this is not effective we will once again discuss an oral muscle relaxer 4. Continue to recommend OP psychotherapy at [place]. She is making progress with therapy but, I think her emotional state is declining. She has been fixated on going home and wanting to get out of the hospital. Family in for training today. Rajwinder has been depressed for years even prior to the stroke. Has not had psychotherapy in the past and ? whether the medications is the past have really been effective. I suspect the not sleeping at night has more to do with stopping the Trazodone than it does with actual severe pain in the shoulder. She c/o being tired which I suspect is due to depression rather than medication. Things may improve when she is home. 5. Ask therapy if we have an US machine we can use to work on the L biceps tendon and consider a lidocaine patch if the cream does not work. Ice 3 times a day to the biceps tendon 6. Needs a sleep study at some point. 7. I have examined her throat a number of times and there is no evidence of thrush. She is using both Flovent and a Fluticasone inhaler.........trial of Nystatin swish and swallow. Charges/Coding Visit Charges Inpatient E&M: 47056 Subs Hosp L2
[2024-10-21] MEDS: NYSTATIN 500,000 UNIT/5 ML UDC 500000 UNIT PO ×4 (09:53→20:32)
[2024-10-21 12:41] VITALS: BMI 32.6
--- NOTE | 2024-10-21 12:41 | CASEMGMT ---
Social Work IDT met with patient, and dtr for Team meeting. Discussed patient's progress in PT/OT/ST/SN/MD. Educated to [facility] insurance with [employer] 10/21 and continued stay is not guaranteed with each review. Pt's mental health continues to be compromised and discussed the benefit to setting a DC date to allow concrete DC for knowing when she will be home. Pt and family agreed. Since works full-time, offered to set DC for 10/25 after work. All in agreement. Pt needs a sleep study, and this worker will inquire if there is a bed open for 10/25, if not, pt can be scheduled as an OP. Pt will coordinate overnight O2, quad cane, [place] w[place]c and [place] [facility] refer to [facility] PT/OT/SN/SANCHES/WHIT. SW explained since pt is out of [facility], the [facility] SW will provide counseling resources and support groups. SW provided list of palliative care providers and pt will choose preference for this worker to place referral to follow at DC. Pt agreed. SW will notify pt with finalized DC date. - SW sent referral via [facility] to [facility] and [facility]. - [facility] can accept. SW informed intake about SW needs for resources and palliative. [facility] suggested using [facility]. SW to speak with pt to make decision. - Notified insurance approved with [employer] 10/28, thus pt is approved for DC 10/25. - SW updated [facility] and [facility]. - SW spoke with pt and of DC date, pending sleep study. Pt agreed to using [facility]. SW placed referral. Plan: DC home with 10/25, [facility] PT/OT/SN/SANCHES/SW, quad cane, BSC, transport w/c, overnight O2 Taylor Shea MSW FREEZER MACHINE OPERATOR
[2024-10-21 17:39] VITALS: BP 130/84; PULSE 83; RESP 18; TEMP 36.4; O2SAT 97
[2024-10-21 19:26] VITALS: BMI 32.6
[2024-10-21 20:27] VITALS: RESP 16; O2SAT 95
[2024-10-21] MEDS: Senna/Docusate Sodium 1 Tablet 2 TABLET PO (20:32)
[2024-10-21] MEDS: Fluticasone 0.05% 1 SPRAY NASAL.SRY 2 SPRAY NASAL (20:34)
[2024-10-21] MEDS: Arthritis Pain Compound 60 CLICK TUBE TOPICAL (20:34)
[2024-10-22 00:30] VITALS: PULSE 78; RESP 16; O2SAT 98
[2024-10-22 03:20] VITALS: PULSE 67; RESP 16; O2SAT 96
[2024-10-22 06:00] VITALS: BP 108/82; PULSE 109; RESP 16; TEMP 37; O2SAT 99
[2024-10-22] MEDS: Arthritis Pain Compound 60 CLICK TUBE TOPICAL ×2 (06:40→20:15)
[2024-10-22 07:13] VITALS: O2SAT 95
[2024-10-22] MEDS: Fluticasone/Salmeterol 232-14 Inhaler 1 PUFF INHALATION ×2 (08:02→20:15)
[2024-10-22] MEDS: Senna/Docusate Sodium 1 Tablet 2 TABLET PO (08:02)
[2024-10-22] MEDS: APIXABAN 5 MG TABLET PO ×2 (08:03→20:16)
[2024-10-22] MEDS: buPROPion (XL) 300 MG TABLET.XL PO (08:03)
[2024-10-22] MEDS: NYSTATIN 500,000 UNIT/5 ML UDC 500000 UNIT PO ×4 (08:03→20:15)
--- NOTE | 2024-10-22 13:22 | PCM.PROGNOTE ---
Subjective Subjective Afebrile VSS - HR of 120 this AM per nursing....but, it was regular. BP is WNL. Maintaining appropriate oxygen saturation on RA Oral intake - FOOD good FLUIDS poor yesterday Discussed with nursing - Did not sleep well last night. Reviewed the THERAPY notes Medication list reviewed. Natalie is overwhelmed. she is very tearful. Denies feeling suicidal. She has not slept the past few nights....since Trazodone was discontinued due to brain fog. This did not help the brain fog and yesterday she thought it could be the Buspar so it was discontinued. Today she still has brain Fog and she is now feeling very anxious again. She recognizes that she is anxious about going home. She wonders how she is going to take care of everyone........I pointed out that the person she needs to take care of is herself. She feels overwhelmed when there are too many people in her room. Yesterday with her , sister and her dtr doing therapy with her for family training was a very stressful day. Sunlight is bothering her. She had tremors all over last night and wants a muscle relaxer. . She keeps saying I just want my brain to work again. When I pointed out that discontinuing Trazodone and Buspar lead to increasing decompensation she agreed. She has been on an antidepressant for 20 years now. She has never had counselling although this has been recommended in the past. She tells me that she is too busy for counselling. I pointed out that she has had ongoing depression despite taking a medication and this has been greatly exacerbated by the Stroke. She is having trouble focusing and concentrating and also so memory difficulties. She does not make eye contact with me most of the time we were talking. She has always had trouble setting boundaries and saying no and this has lead to being often overwhelmed and over tired. She is very emotional over the past week since we started talking about setting a date to go home. She acknowledges that she wants to go home but, it is anxiety provoking.......she is worrying about what will happen if she falls, or she does not make it to the BR. she is working about who will be cooking meals. She wants to blame the way she feels on the medications but, I pointed out when we discontinued medications she got worse. She finally agreed and would like to restart Trazodone and Buspar. Objective Data Objective Data Vital Signs: Vital Signs Temp Pulse Resp BP Pulse Ox O2 Del Method O2 Flow Rate 98.6 F 109 H 16 108/82 H 95 Room Air 2 10/22/24 06:00 10/22/24 06:00 10/22/24 06:00 10/22/24 06:00 10/22/24 07:13 10/22/24 07:13 10/22/24 06:00 FiO2 98 10/08/24 10:25 Oxygen Flow Rate (L/min) 2 Oxygen Delivery Method Room Air Weight: 177 lb 7.554 oz Body Mass Index (BMI) 32.6 Intake & Output: Intake and Output for Last 24 Hours 10/20/24 10/21/24 10/22/24 23:59 23:59 23:59 Intake Total 1580 / 1580 840 / 840 100 / 100 Output Total 1250 / 1250 1225 / 1225 475 / 475 Balance 330 / 330 -385 / -385 -375 / -375 Lab / Micro Data 10/18/24 07:50 10/18/24 07:37 Micro: Microbiology 10/06/24 11:25 Mucosa - Throat Streptococcus pyogenes (PCR) - Final 09/30/24 13:15 Stool Stool Occult Blood (FILI) - Final 09/25/24 05:40 Urine Catheter - Catheter Urine Culture - Final Culture exhibits no growth. Rhythm Strip Rhythm Strip: intermittent diana/tachy Social Homelessness:: Sheltered Physical Exam Const alert Constitutional Narrative: Tearful, anxious, not making good eye contact. Resp clear to auscultation bilaterally Cardio regular rate and regular rhythm GI normal to inspection, nondistended, normoactive bowel sounds and soft to palpation Extremity no calf tenderness General Extremity: Negative for edema Psych Psych Narrative: Not making eye contact when she is speaking with people. Keeps perseverating on wanting to feel like myself. Still willing to work with therapy. Mood & Affect: depressed Thought Content: No suicidality Assessment & Plan Assessment/Plan (1) Physical debility: (2) Left hemiplegia: (3) Facial droop: (4) Cognitive deficits: (5) Acute right MCA stroke: (6) Paroxysmal atrial fibrillation: (7) Anxiety and depression: (8) SSS (sick sinus syndrome): (9) Biceps tendonitis on left: PLAN: Plan 1. Continue therapy 2. Restart BuSpar 5 mg p.o. 3 times daily 3. Restart trazodone 50 mg p.o. nightly 4. We discussed follow up with psychotherapy after she leaves rehab. She has not done this in the past and I am fearful that if she does not have an actual appt set up prior to DC she will not follow through. We ill try and get an appt with someone from mental health prior to her leaving and get her seen PONCHO. We discussed increasing Wellbutrin but, she is not wanting to do this. She has had no adverse SE with Wellbutrin. She was on Citalopram at the time of the stroke and was still anxious and depressed. She had poor motivation in the first 7-10 days on rehab and was sleeping most of the day. She was transitioned to Wellbutrin and after a week or so she was more alert during the day and was more talkative with staff. She was actually more motivated, more alert and had a better attitude on Wellbutrin. Insomnia was well managed with Trazodone 100 mg at HS. Anxiety improved on Buspar 5 mg TID. Then we set a DC date and she became overwhelmed and blamed this on the medications which she had been tolerating well. She has made good physical progress on rehab. Her mental Health issues, which have been long standing, have gotten worse since the stroke and then escaleted again when we aset a DC date and her family started coming in for training. Charges/Coding Visit Charges Inpatient E&M: 21357 Subs Hosp L1
[2024-10-22 13:24] VITALS: BMI 32.6
[2024-10-22 18:00] VITALS: BP 121/80; PULSE 77; RESP 18; TEMP 36.4; O2SAT 100
[2024-10-22 19:45] VITALS: PULSE 77; RESP 18; O2SAT 100; BMI 32.6
[2024-10-22] MEDS: Fluticasone 0.05% 1 SPRAY NASAL.SRY 2 SPRAY NASAL (20:14)
--- NOTE | 2024-10-22 23:14 | NURSING ---
1944 pt sitting recliner and is weepy when staff came into the room. pt voiced that she was very depressed and wanted to cry but couldn't. staff spent 15min talking with pt about her feelings and how she thinks that she should be getting better way before now. staff explained to pt that she needs to have some patience and let her brain heal and that she is also dealing with a loss of losing control of her arm and not being able to be like she was before. staff encouraged her to seek ewiiaapaayp to help her with her feelings and shared some experience with ewiiaapaayp that i had and it was ok to talk with someone . 2129 pt to the br at this time and is smiling a little and not as tearful
[2024-10-23 01:00] VITALS: PULSE 79; O2SAT 99
[2024-10-23 03:34] VITALS: PULSE 74; O2SAT 99
[2024-10-23] MEDS: Arthritis Pain Compound 60 CLICK TUBE TOPICAL ×2 (05:38→20:18)
[2024-10-23] MEDS: Lidocaine 5% Patch 1 PATCH TOPICAL (05:38)
[2024-10-23 06:00] VITALS: BP 108/68; PULSE 71; RESP 16; TEMP 36.3; O2SAT 100; BMI 32.0
[2024-10-23] MEDS: NYSTATIN 500,000 UNIT/5 ML UDC 500000 UNIT PO ×4 (07:59→20:17)
[2024-10-23] MEDS: buPROPion (XL) 300 MG TABLET.XL PO (07:59)
--- NOTE | 2024-10-23 08:26 | CASEMGMT ---
Social Work Nursing notified this worker that pt and elected to reschedule sleep study, not to do it day of DC, d/t having a golf outing on Monday. SW updated sleep lab to contact pt to schedule at a later date. Taylor Shea [employer]NAL [employer]IPMENT MAINTENANCE SUPERVISOR [employer]ODUCTION PATTERN [employer]KER
[2024-10-23 12:42] VITALS: BMI 32.6
[2024-10-23 17:30] VITALS: BP 122/82; PULSE 130; RESP 15; TEMP 36.6; O2SAT 96
[2024-10-23 19:45] VITALS: PULSE 72; RESP 15; O2SAT 96; BMI 32.6
[2024-10-23] MEDS: Fluticasone 0.05% 1 SPRAY NASAL.SRY 2 SPRAY NASAL (20:18)
[2024-10-23 22:18] VITALS: PULSE 71; O2SAT 98
[2024-10-24] VITALS (8 sets, daily range): BP systolic 99–127; BP diastolic 66–80; PULSE 63–116; RESP 15–16; TEMP 36.7–36.8; O2SAT 85–99; BMI 32.6
--- NOTE | 2024-10-24 08:09 | PN_ITS ---
Subjective Subjective Rajwinder was seen on team rounds today. Afebrile VSS - Maintaining appropriate oxygen saturation on RA Oral intake - FOOD adequate FLUIDS fair at best Weight is stable Discussed with nursing - no problems that need addressed Reviewed the THERAPY notes Medication list reviewed. All lab from this morning was personally reviewed. The sodium is 139 and the potassium is 3.7. The BUN is 17 with a stable creatinine at 0.74. Fasting blood sugar is 105. LFTs are normal. Triglycerides are 132 and his total cholesterol is 144. The LDL is 79 and the HDL is 38. She has not been on a statin.......it did not get reordered. Likely does not need 40 mg of Crestor. Rajwinder tells me she has been sleeping better since trazodone was restarted. She is also less anxious since we reinstituted BuSpar. Denies headache, lightheadedness, chest pain, shortness of breath, nausea/vomiting/abdominal pain, constipation, dysuria and calf pain. Has occasional brief palpitations. She did not complain about pain in the left shoulder today and the lidocaine patch and arthritis pain cream has been very helpful. Objective Data Objective Data Vital Signs: Vital Signs Temp Pulse Resp BP Pulse Ox O2 Del Method O2 Flow Rate 98.1 F 63 15 99/66 96 Room Air 2 10/24/24 05:10 10/24/24 05:10 10/24/24 05:10 10/24/24 05:10 10/24/24 05:10 10/24/24 05:10 10/23/24 06:00 FiO2 21 10/23/24 22:18 Oxygen Flow Rate (L/min) 2 Oxygen Delivery Method Room Air Weight: 174 lb 2.643 oz Body Mass Index (BMI) 32.6 Intake & Output: Intake and Output for Last 24 Hours 10/22/24 10/23/24 10/24/24 23:59 23:59 23:59 Intake Total 440 / 440 1110 / 1110 150 / 150 Output Total 875 / 875 600 / 600 800 / 800 Balance -435 / -435 510 / 510 -650 / -650 Lab / Micro Data 10/18/24 07:50 10/24/24 11:07 Micro: Microbiology 10/06/24 11:25 Mucosa - Throat Streptococcus pyogenes (PCR) - Final 09/30/24 13:15 Stool Stool Occult Blood (FILI) - Final 09/25/24 05:40 Urine Catheter - Catheter Urine Culture - Final Culture exhibits no growth. Rhythm Strip Rhythm Strip: intermittent diana/tachy Social Homelessness:: Sheltered Physical Exam Const alert Constitutional Narrative: Tearful, anxious, not making good eye contact. Resp clear to auscultation bilaterally Cardio regular rate and regular rhythm Cardio Narrative: No ectopy GI normal to inspection, nondistended, normoactive bowel sounds and soft to palpation Extremity no calf tenderness General Extremity: Negative for edema Psych Psych Narrative: Less anxious today and making better eye contact. slept well last night. Mood & Affect: depressed Thought Content: No suicidality Assessment & Plan Assessment/Plan (1) Physical debility: (2) Acute right MCA stroke: (3) Left hemiplegia: (4) Facial droop: (5) Cognitive deficits: (6) Paroxysmal atrial fibrillation: (7) Anxiety and depression: (8) SSS (sick sinus syndrome): (9) Biceps tendonitis on left: PLAN: Plan 1. Continue therapy 2. 24-hour Holter monitor today. 3. Overnight trending pulse ox on room air 4. Plan discharge home tomorrow with [facility] 5. Will follow-up with Dr. Langley for PAF 6. Needs follow-up with neurology. 7. She is agreeable to following up for psychotherapy. She will follow-up at [facility] mental health services and the charge nurse was able to get her an appointment for next week. Will continue Wellbutrin XL 300 mg daily, BuSpar 5 to 10 mg 3 times daily and trazodone 50 mg at bedtime. Charges/Coding Visit Charges Inpatient E&M: 45473 Subs Hosp L1
[2024-10-24] MEDS: Lidocaine 5% Patch 1 PATCH TOPICAL (08:59)
[2024-10-24] MEDS: NYSTATIN 500,000 UNIT/5 ML UDC 500000 UNIT PO ×4 (08:59→20:30)
[2024-10-24] MEDS: Arthritis Pain Compound 60 CLICK TUBE TOPICAL ×2 (09:01→20:30)
[2024-10-24] MEDS: buPROPion (XL) 300 MG TABLET.XL PO (09:02)
--- NOTE | 2024-10-24 10:19 | DCINST_ITS ---
Discharge Instructions DC O2, CPAP, BIPAP needs Home O2 Discharge instructions: No Dressing / Incision Discharge Activity: May Shower and - (Use a quad cane for ambulation) Weight Bearing Status: Full weight bearing Keep extremity elevated above heart level: Left Arm Dressing / Incision Call your doctor if you observe: Fever of 101 or Higher, Shortness of breath, Fainting spells, Swelling in the ankles, Chest pain, Increased palpitations (irregular heartbeat), Calf discomfort, Uncontrolled pain and - (STROKE symptoms: facial droop, slurred speech, inability to get words out, weakness on 1 side of the body and not the other, numbness on 1 side of the body and not the other, inability to maintain your balance sitting or standing, vertigo. ) Follow Up Care When: Appts are listed later in this document. Test Results: Test results from this visit will be discussed in further detail at your follow- up appointment, if applicable. Pending Tests Upon Discharge: none Discharge Plan Admission Admit Date/Time: 09/18/24 13:12 Primary Reason for Your Visit: POST STROKE DEBILITY Attending Provider: Maureen Costello Primary Care Provider: Consuelo Lazar Consulting Providers: Zurdo Guzman Instructions Patient Instructions: A1C, LAAC, Depression Affects Your Mind ..., Counseling for Depression, JANNA Additional Instructions / Restrictions: 1. Your HGBA1C was 5.8%. This is very mildly elevated but, this could mean that you have an increased risk of developing diabetes. Try and lose a little weight and watch your carbohydrate intake. Do NOT gain weight. Try and get your BMI < 30. 2. You suffer from both anxiety and depression. I think that you have been getting by for quite a while but, still getting overwhelmed at times and not having a lot of yaron in your life. You are a great person and you do your best to try and take care of everybody but yourself. You are a priority and now is the time for you to take care of Rajwinder and not everyone else. One of the things we can do to prevent being overwhelmed is to learn to set boundaries and say no........you can not help anyone else if you are overwhelmed. You are the priority and then comes your family. I am so glad you are willing to get some counseling. Medication for anxiety and depression helps but, medication and cou nseling together works much better. I am giving you a handout that talks about grounding techniques you can use to help calm yourself when you are feeling overwhelmed and stressed. 3. I am giving you a prescription for Trazodone 50 mg tabs. You should take this every night for insomnia. Sleep is essential to help you heal and cope. I will leave it up to you to determine whether you want to take 50 or 100 mg. 4. You are taking Wellbutrin XL 300 mg daily for depression. Wellbutrin is a good antidepressant. It does not make you sleepy and it can help with weight loss. It does not treat anxiety. You are taking Buspar for anxiety. This medication is not addictive. You have to take it 2 or 3 times a day to be effective since you have to maintain a certain level of medication in your system for the drug to work. It does not work if you take it PRN. When we stopped the Trazodone and Buspar because you thought they might have been causing brain wonkiness insomnia recurred and you became much more anxious. Things improved with restarting these medications. The closer we have gotten to the DC date the worse the anxiety has been. 5. You had a 24H holtor monitor prior to leaving rehab. We are scheduling you an appt to follow up with cardiology to review the results of the holtor and to address the paroxysmal atrial fibrillation. You still may be a candidate for a Watchman procedure. I am giving you some printed literature about the Watchman procedure, also called a left atrial appendage ligation device. This procedure is not done at [place] and you would have to follow up with someone who does this procedure..........possibly the physics tutor you were going to see the day you had the stroke. 6. We have not been giving you Montelukast or and Advair inhaler while you have been on rehab and you have not had any problems. We have been giving you Atrovent nasal spray for rhinitis. Oral antihistamines can cause drowsiness and if you don't need them I would recommend continuing the nasal spray for control of rhinitis. 7. You worked very hard on rehab and you have made excellent progress. It has only been a month since the stroke and already you are walking with only a cane.......excellent progress. You are starting to have some tone in the L arm and this is a good sign. 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 You know it takes time to rehab from a stroke and that it can take months to get to maximum improvement.........be patient with yourself. 8. It has been a pleasure meeting you Rajwinder. It is clear from talking with your colleagues that you are a wonderful caring person who takes excellent care of her patients. It is time to take better care of yourself. If there is anything I can do to help you or you just need to talk with someone please do not hesitate to call me. I am including my cell phone # and office #. If you or your family have any questions after you leave please do not hesitate to call me. OFFICE: [phone] CELL: [phone] NURSES STATION ON REHAB: [phone] Discharge Orders/Prescriptions Prescriptions: New acetaminophen 500 mg Tablet 1,000 mg PO Q8 PRN (Reason: fever or pain) Qty: 1 0RF buspirone 5 mg Tablet 10 mg PO TID Qty: 180 0RF cyanocobalamin (vitamin B-12) 500 mcg Tablet 1,000 mcg PO BREAKFAST Qty: 60 0RF bupropion HCl 300 mg Tablet Extended Release 24 Hr 300 mg PO DAILY Qty: 30 0RF lidocaine 5 % Adhesive Patch,Medicated 1 patch topical 0600 Qty: 30 0RF Protocol: *Topical Application Instructions APPLICATION INSTRUCTIONS: Left Bicep Rx Instructions: Apply to the Left shoulder in the AM and remove 12H later. fluticasone propionate 50 mcg/actuation [place],Suspension 2 spray NASAL QHS Qty: 1 0RF nystatin 100,000 unit/mL Suspension 500,000 unit PO 4X/DAY Qty: 180 0RF trazodone 50 mg Tablet 50 mg PO QHS Qty: 60 0RF Rx Instructions: 1-2 tabs at HS for insomnia amiodarone 100 mg tablet 100 mg PO BID Qty: 60 0RF Continued albuterol sulfate 90 mcg/actuation HFA aerosol inhaler 2 puff inhalation Q6H PRN (Reason: SOB, Wheezing) fluticasone propion-salmeterol [Advair Diskus] 250-50 mcg/dose blister with device 1 inh inhalation Q12H montelukast [Singulair] 10 mg tablet 10 mg PO QHS rosuvastatin [Crestor] 40 mg tablet 40 mg PO QHS Qty: 30 0RF Eliquis 5 mg tablet 5 mg PO BID Qty: 60 0RF Discontinued citalopram [Celexa] 10 mg tablet 10 mg PO DAILY flecainide 100 mg tablet 100 mg PO Q12H topiramate [Topamax] 25 mg tablet 25 mg PO BID Referrals / Follow Up: Soheila Fry [Other] - 11/04/24 1:30 pm [facility] [Other] - 10/31/24 2:45 pm (Will see Arabella) Consuelo Lazar DO [Primary Care Provider] - 10/28/24 1:15 pm Zurdo Guzman MD [Med Staff - Active Staff] - 10/29/24 1:15 pm (Will see CHANTAL Carrizales) Disposition Disposition (needs filled in before D/C Order can be placed): Home Health Service
[2024-10-24 11:43] LABS: AST(SGOT) 29 U/L (<=31); Alanine Aminotransfer ALT/SGPT 20 U/L (<=34); Albumin, Serum 4.5 g/dL (3.5-5.0); Alkaline Phosphatase 62 U/L (35-104); Anion Gap 13 (5-15); BUN 17 mg/dL (4-19); BUN/Creat Ratio 23.1 RATIO (10-20); Calcium,Total 9.4 mg/dL (7.6-11.0); Carbon Dioxide 23.6 mmol/L (21.0-32.0); Chloride 103 mmol/L (98-108); Estimated Creatinine Clearance 86.56 ml/min (50-250); Globulin 2.7 g/dL (2.2-4.2); Glucose 105 mg/dL (70-99); Potassium 3.7 mmol/L (3.3-5.1)
[2024-10-24 12:11] LABS: Cholesterol 144 mg/dL (<=200); Low Density Lipoprotein Calc. 79 mg/dL; Triglycerides 132 mg/dL; Very Low Density Lipoprotein 26 mg/dL (5-40); cholesterol:hdl ratio screen 3.75
[2024-10-24] MEDS: Fluticasone 0.05% 1 SPRAY NASAL.SRY 2 SPRAY NASAL (20:30)
[2024-10-24] MEDS: APIXABAN 5 MG TABLET PO (20:31)
[2024-10-25 01:00] VITALS: PULSE 74; O2SAT 96
[2024-10-25 05:38] VITALS: BP 102/68; PULSE 78; RESP 15; TEMP 36.1; O2SAT 96
[2024-10-25 08:10] VITALS: BP 113/65; PULSE 70
[2024-10-25] MEDS: Arthritis Pain Compound 60 CLICK TUBE TOPICAL (08:12)
[2024-10-25] MEDS: Lidocaine 5% Patch 1 PATCH TOPICAL (08:13)
[2024-10-25] MEDS: buPROPion (XL) 300 MG TABLET.XL PO (08:19)
[2024-10-25] MEDS: APIXABAN 5 MG TABLET PO (08:19)
[2024-10-25] MEDS: NYSTATIN 500,000 UNIT/5 ML UDC 500000 UNIT PO ×2 (08:19→13:03)
--- NOTE | 2024-10-25 09:24 | EX.DISCHREH ---
Providers Date of Admission: 09/18/24 Date of Discharge: 10/25/24 Primary Care Physician: Dr. Consuelo Lazar, Consultations 10/07/24 15:00 Consult: Cardiology Routine - pt was never seen by Dr. Comer Consulting Provider: Tootie Comer Reason for Consult: PAF with suspected SSS. EMERGENT Consult: No MD Notified: No Date Notified: 10/07/24 Time Notified: 15:00 Method of Consult:: In-Person 10/17/24 13:34 Consult: Inpatient Palliative Care Routine Consulting Provider: Kassandra Marrero Reason for Consult: stroke goals EMERGENT Consult: No MD Notified: No Date Notified: 10/17/24 Time Notified: 13:35 10/17/24 15:30 Consult: Cardiology Routine Consulting Provider: Zurdo Guzman Reason for Consult: PAF with suspected SSS EMERGENT Consult: No MD Notified: Yes Date Notified: 10/17/24 Time Notified: 15:30 Method of Notification: Text Reason For Visit: STROKE Diagnosis Discharge Diagnosis (1) Physical debility: Status: Acute Code(s): R53.81 - Other malaise (2) Acute right MCA stroke: Status: Acute Code(s): I63.511 - Cerebral infarction due to unspecified occlusion or stenosis of right middle cerebral artery Plan: Acute infarcts in the right hippocampus, right internal capsule and caudate nucleus due to presumed clot/embolus in the R carotid due to PAF (not anticoagulated at the time of the stroke). (3) Left hemiplegia: Status: Acute Code(s): G81.94 - Hemiplegia, unspecified affecting left nondominant side (4) Facial droop: Status: Acute Code(s): R29.810 - Facial weakness (5) Cognitive deficits: Status: Acute Code(s): R41.89 - Other symptoms and signs involving cognitive functions and awareness (6) Paroxysmal atrial fibrillation: Status: Chronic Code(s): I48.0 - Paroxysmal atrial fibrillation (7) Anxiety and depression: Status: Chronic Code(s): F41.9 - Anxiety disorder, unspecified; F32.A - Depression, unspecified (8) SSS (sick sinus syndrome): Status: Suspected Code(s): I49.5 - Sick sinus syndrome (9) Biceps tendonitis on left: Status: Acute Code(s): M75.22 - Bicipital tendinitis, left shoulder Plan: Much improved with lidocaine patch and arthritis compounded pain cream containing lidocaine, baclofen and Voltaren gel. (10) Head pain cephalgia: Status: Resolved Code(s): R51.9 - Headache, unspecified Qualifiers: Headache type: unspecified Headache chronicity pattern: chronic headache Intractability: not intractable Qualified Code(s): R51.9 - Headache, unspecified; G89.29 - Other chronic pain Plan: Has not complained of a SANCHES for at least a week prior to DC. No hx of migraines. SANCHES was likely related to the acute ischemic CVA. (11) Glucose intolerance: Status: Chronic Code(s): E74.39 - Other disorders of intestinal carbohydrate absorption Plan: Hemoglobin A1c at the previous hospital was 5.8%. (12) Hyperlipidemia: Status: Chronic Code(s): E78.5 - Hyperlipidemia, unspecified Qualifiers: Hyperlipidemia type: pure hypercholesterolemia Qualified Code(s): E78.00 - Pure hypercholesterolemia, unspecified Plan: Discharged on a high intensity statin. Crestor 40 mg nightly. Plan 1. Discharge home with [facility] care. 2. Follow-up with PCP, Soheila Fry NP from neurology, Dr. Langley for cardiology and [facility] behavioral health and counseling center. Appointments have been made for her prior to discharge. Medications at Discharge Home Medications albuterol sulfate 90 mcg/actuation aerosol inhaler 2 puff inhalation Q6H PRN SOB, Wheezing 09/18/24 fluticasone 250 mcg-salmeterol 50 mcg/dose blistr powdr for inhalation (Advair Diskus) 1 inh inhalation Q12H lungs 09/18/24 montelukast 10 mg tablet (Singulair) 10 mg PO QHS allergies 09/18/24 acetaminophen 500 mg tablet 1,000 mg (2 x 500 mg) PO Q8 PRN fever or pain #1 TAB 10/24/24 amiodarone 100 mg tablet 100 mg PO BID #60 tabs 10/24/24 apixaban 5 mg tablet (Eliquis) 5 mg PO BID Stroke #60 tabs 10/24/24 bupropion HCl 300 mg 24 hr tablet, extended release 300 mg PO DAILY #30 tabs 10/24/24 buspirone 5 mg tablet 10 mg (2 x 5 mg) PO TID #180 tabs 10/24/24 cyanocobalamin (vitamin B-12) 500 mcg tablet 1,000 mcg (2 x 500 mcg) PO BREAKFAST #60 tabs 10/24/24 fluticasone propionate 50 mcg/actuation nasal spray,suspension 2 spray NASAL QHS #1 BOTTLE 10/24/24 lidocaine 5 % topical patch 1 patch topical 0600 #30 ea 10/24/24 nystatin 100,000 unit/mL oral suspension 500,000 unit (5 mL) PO 4X/DAY #180 mL 10/24/24 rosuvastatin 40 mg tablet (Crestor) 40 mg PO QHS cholesterol #30 tabs 10/24/24 trazodone 50 mg tablet 50 mg PO QHS #60 tabs 10/24/24 Physical Exam Const alert and no apparent distress Constitutional Narrative: Oriented to person and place. General Appearance: cooperative, well kempt, well developed and other having some confusion.....thought the seed laboratory assistant was her sister. Poor short term memory....can not remember to keep the R arm straight for the IV in the antecubital. HEENT normocephalic, head/scalp atraumatic and hearing grossly normal bilaterally HEENT Narrative: Mucous membranes are very dry Eyes PERRL, EOMs intact bilaterally, conjunctivae normal and no scleral icterus Eyes Narrative: No DC from the eyes and no mattering of the eyelashes. No visual field cuts and no visual extinction. Wears glasses. No visual field cuts. General Eye: normal appearance of both eyes and normal light reflex Neck supple, no JVD and No nodes Neck Narrative: Good ROM cervical spine. Poor shoulder shrug L shoulder General: trachea midline Chest Chest Narrative: Resp normal respiratory effort, normal air movement, no use of accessory muscles and clear to auscultation bilaterally Effort and Inspection: able to speak in complete sentences Cardio regular rate, regular rhythm, S1 normal heart sound, S2 normal heart sound, no murmurs, no rub, no gallops and no JVD Cardio Narrative: No ectopy GI normal to inspection, nondistended, normoactive bowel sounds, soft to palpation and non-tender GI Narrative: No guarding with palpation. Having regular bowel movements. no CVA tenderness Narrative: She is continent of both urine and stool. Extremity no clubbing, cyanosis or edema, no calf tenderness and no pedal edema Skin General Skin Exam: no breakdown Rashes: no rashes Neuro Neuro Narrative: Alert, oriented to person and place. Pupils are equal round and reactive to light and accommodation. Extraocular muscles are intact. No visual field cuts. Tongue protrudes on the midline. Intact sensation in the face. Mild persistent left facial droop. Better shoulder shrug on the left. Left arm has some tensing of the biceps, triceps, trapezius. Still not abl to lift the L arm off the bed or move it side to side on the bed. No drift with the right arm. she is able to hold the left leg off the bed for a count of 5 now. Weak dorsiflex and plantar flexion of the left foot. NO clonus. No drift with the R leg. No ataxia with the right arm or leg and no ataxia with the left leg. Cannot test for ataxia of the left arm due to severe weakness and inability to participate with the test. No extinction. No aphasia. Mild dysarthria. No sensory loss on the left side. No urinary incontinence and no urine retention. cognition is much improved and she will not have to see ST at [place]. Left side neglect has resolved. Psych cooperative, denies hallucinations, denies homicidal ideation and denies suicidal ideation Psych Narrative: She does not appear anxious today. She is making better eye contact with me today. Sleeping well at night again with restarting Trazodone 50 mg at HS. Tolerating Wellbutrin with no SANCHES, no seziures and no c/o dry eye. Affect is still somewhat flat. She is eating well and has a good appetite. Attitude: calm Medical Records Data Homelessness:: Sheltered Weight / BMI Weight Weight: 174 lb 2.643 oz Body Mass Index (BMI) 32.6 ABG / Lab / Microbiology Data 10/18/24 07:50 10/24/24 11:07 Laboratory: Laboratory Results - last 24 hr 10/24/24 11:07: Sodium 139, Potassium 3.7, Chloride 103, Carbon Dioxide 23.6, Anion Gap 13, BUN 17, Creatinine 0.74, Estim Creat Clear Calc 86.56, Est GFR (MDRD) Non-Af 98, BUN/Creatinine Ratio 23.1 H, Glucose 105 H, Calcium 9.4, Total Bilirubin 0.40, AST 29, ALT 20, Alkaline Phosphatase 62, Total Protein 7.2, Albumin 4.5, Globulin 2.7, Albumin/Globulin Ratio 1.7, Triglycerides 132, Cholesterol 144, LDL Cholesterol, Calc 79, VLDL Cholesterol 26, HDL Cholesterol 38 L, Cholesterol/HDL Ratio 3.75 Microbiology: Microbiology 10/06/24 11:25 Mucosa - Throat Streptococcus pyogenes (PCR) - Final 09/30/24 13:15 Stool Stool Occult Blood (FILI) - Final 09/25/24 05:40 Urine Catheter - Catheter Urine Culture - Final Culture exhibits no growth. Indicators for Scoring Admitted with or Primary Diagnosis of CVA/Stroke: Yes Hx of CVA/Stroke: No Modified [place] Score MRS Score at time of Evaluation: 4-Moderate/severe disability NIHSS NIHSS 1a. Level of Consciousness: 0 - Alert; keenly responsive 1b. LOC Questions: 0 - Answers BOTH questions correctly 1c. LOC Commands: 0 - Performs BOTH tasks correctly 2. Best Gaze: 0 - Normal 3. Visual: 0 - No visual loss 4. Facial Palsy: 1 - Minor paralysis (flattened nasolabial fold, asymmetry on smiling) 5a. Left Arm: 3 - No effort against gravity; arm falls 5b. Right Arm: 0 - No drift; arm holds 90 (or 45) degrees for full 10 seconds 6a. Left Le - No drift; leg holds 30-degree position for full 5 seconds (Weak plantarflexion and dorsiflexion of the left foot) 6b. Right Le - No drift; leg holds 30-degree position for full 5 seconds 7. Limb Ataxia: 0 - Absent (Cannot test the left upper extremity for ataxia because she is unable to lift it off the bed.) 8. Sensory: 0 - Normal; no sensory loss 9. Best Language: 0 - No aphasia; normal 10. Dysarthria: 1 = [id number] dysarthria; (Very mild) 11. Extinction and Inattention: 0 - No abnormality Total: 5 (This is down from a 9 at admission to acute rehab.) Stroke Questions Stroke Team Activated: No D/C Instructions Diet Diet Order/Speech Therapy: INPATIENT Hospital Diet / Speech Therapy Order(s) 09/18/24 13:52 Diet: Cardiac - Heart Healthy Food consistency:: Regular Liquid Consistency:: Regular/Thin Type of Dietary Supplement:: Ensure Plus High Protein Diet Comments: cut up foods, no caffeine; 120ml chocolate EPHP with lunch and dinner Discharge order: Continue INPATIENT Hospital Diet / Speech Therapy Orders: Yes Weight Bearing Status: Full weight bearing Keep extremity elevated above heart level: Left Arm Call your doctor if you observe: Fever of 101 or Higher, Shortness of breath, Fainting spells, Swelling in the ankles, Chest pain, Increased palpitations (irregular heartbeat), Calf discomfort, Uncontrolled pain and - (STROKE symptoms: facial droop, slurred speech, inability to get words out, weakness on 1 side of the body and not the other, numbness on 1 side of the body and not the other, inability to maintain your balance sitting or standing, vertigo. ) DC O2, CPAP, BIPAP Needs RN Home O2 qualification: No Data to Display PSN CPAP & BiPAP: BiPAP & CPAP Settings per PSN Fraction of Inspired Oxygen ( 10/24/24 21:45 FIO2) Home O2 Discharge instructions: No Pending Tests Upon Discharge: none When: Appts are listed later in this document. Meaningful Use Info Meaningful Use Meaningful Use Diagnoses (Choose all that apply): Ischemic CVA CVA Therapy Assessed for PT,OT and/or ST?: Yes Ischemic Stroke Antithrombotic order at d/c?: No Reason antithrombotic not ordered: Treatment not Indicated (The stroke was embolic and she has no significant stenosis of the carotids or intracranial vessels. She will be taking Eliquis 5 mg twice daily.) Dx of Atrial fib/flutter?: Yes Anticoagulant at discharge?: Yes Statin Dosing Therapy Reference: STATIN DOSE THERAPY REFERENCE: * Patients > 75 years receive moderate or high dose statin therapy. * Patients 75 years or YOUNGER should receive HIGH intensity statin dose unless contraindicated. You will be required to document reason for non-treatment if statin daily dose does not meet guidelines. HIGH DOSE STATIN THERAPY DAILY Atorvastatin > than or = to 40 mg Rosuvastatin > than or = to 20 mg Amlodipine + Atorvastatin > than or = to 2.5/40 mg Ezetimibe + Simvastatin 10/80 mg Simvastatin 80mg Statins at discharge?: Yes If patient is 75 or younger, pt will be discharged on HIGH intensity statin.: Yes Primary Dx Acute Ischemic CVA?: Yes IV thrombolytic ordered during stay?: No Reason IV thrombolytic not ordered: Procedure not Indicated Discharge Plan Admission Admit Date/Time: 09/18/24 13:12 Primary Reason for Your Visit: POST STROKE DEBILITY Attending Provider: Maureen Costello Primary Care Provider: Consuelo Lazar Consulting Providers: Zurdo Guzman Instructions Patient Instructions: A1C, LAAC, Depression Affects Your Mind ..., Counseling for Depression, JANNA Additional Instructions / Restrictions: 1. Your HGBA1C was 5.8%. This is very mildly elevated but, this could mean that you have an increased risk of developing diabetes. Try and lose a little weight and watch your carbohydrate intake. Do NOT gain weight. Try and get your BMI < 30. 2. You suffer from both anxiety and depression. I think that you have been getting by for quite a while but, still getting overwhelmed at times and not having a lot of yaron in your life. You are a great person and you do your best to try and take care of everybody but yourself. You are a priority and now is the time for you to take care of Rajwinder and not everyone else. One of the things we can do to prevent being overwhelmed is to learn to set boundaries and say no........you can not help anyone else if you are overwhelmed. You are the priority and then comes your family. I am so glad you are willing to get some counseling. Medication for anxiety and depression helps but, medication and counseling together works much better. I am giving you a handout that talks about grounding techniques you can use to help calm yourself when you are feeling overwhelmed and stressed. 3. I am giving you a prescription for Trazodone 50 mg tabs. You should take this every night for insomnia. Sleep is essential to help you heal and cope. I will leave it up to you to determine whether you want to take 50 or 100 mg. 4. You are taking Wellbutrin XL 300 mg daily for depression. Wellbutrin is a good antidepressant. It does not make you sleepy and it can help with weight loss. It does not treat anxiety. You are taking Buspar for anxiety. This medication is not addictive. You have to take it 2 or 3 times a day to be effective since you have to maintain a certain level of medication in your system for the drug to work. It does not work if you take it PRN. When we stopped the Trazodone and Buspar because you thought they might have been causing brain wonkiness insomnia recurred and you became much more anxious. Things improved with restarting these medications. The closer we have gotten to the DC date the worse the anxiety has been. 5. You had a 24H holtor monitor prior to leaving rehab. We are scheduling you an appt to follow up with cardiology to review the results of the holtor and to address the paroxysmal atrial fibrillation. You still may be a candidate for a Watchman procedure. I am giving you some printed literature about the Watchman procedure, also called a left atrial appendage ligation device. This procedure is not done at [place] and you would have to follow up with someone who does this procedure..........possibly the religious healer you were going to see the day you had the stroke. 6. We have not been giving you Montelukast or and Advair inhaler while you have been on rehab and you have not had any problems. We have been giving you Atrovent nasal spray for rhinitis. Oral antihistamines can cause drowsiness and if you don't need them I would recommend continuing the nasal spray for control of rhinitis. 7. You worked very hard on rehab and you have made excellent progress. It has only been a month since the stroke and already you are walking with only a cane.......excellent progress. You are starting to have some tone in the L arm and this is a good sign. 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 You know it takes time to rehab from a stroke and that it can take months to get to maximum improvement.........be patient with yourself. 8. It has been a pleasure meeting you Rajwinder. It is clear from talking with your colleagues that you are a wonderful caring person who takes excellent care of her patients. It is time to take better care of yourself. If there is anything I can do to help you or you just need to talk with someone please do not hesitate to call me. I am including my cell phone # and office #. If you or your family have any questions after you leave please do not hesitate to call me. OFFICE: [phone] CELL: [phone] NURSES STATION ON REHAB: [phone] Discharge Orders/Prescriptions Prescriptions: New acetaminophen 500 mg Tablet 1,000 mg PO Q8 PRN (Reason: fever or pain) Qty: 1 0RF buspirone 5 mg Tablet 10 mg PO TID Qty: 180 0RF cyanocobalamin (vitamin B-12) 500 mcg Tablet 1,000 mcg PO BREAKFAST Qty: 60 0RF bupropion HCl 300 mg Tablet Extended Release 24 Hr 300 mg PO DAILY Qty: 30 0RF lidocaine 5 % Adhesive Patch,Medicated 1 patch topical 0600 Qty: 30 0RF Protocol: *Topical Application Instructions APPLICATION INSTRUCTIONS: Left Bicep Rx Instructions: Apply to the Left shoulder in the AM and remove 12H later. fluticasone propionate 50 mcg/actuation Cobb,Suspension 2 spray NASAL QHS Qty: 1 0RF nystatin 100,000 unit/mL Suspension 500,000 unit PO 4X/DAY Qty: 180 0RF trazodone 50 mg Tablet 50 mg PO QHS Qty: 60 0RF Rx Instructions: 1-2 tabs at HS for insomnia amiodarone 100 mg tablet 100 mg PO BID Qty: 60 0RF Continued albuterol sulfate 90 mcg/actuation HFA aerosol inhaler 2 puff inhalation Q6H PRN (Reason: SOB, Wheezing) fluticasone propion-salmeterol [Advair Diskus] 250-50 mcg/dose blister with device 1 inh inhalation Q12H montelukast [Singulair] 10 mg tablet 10 mg PO QHS rosuvastatin [Crestor] 40 mg tablet 40 mg PO QHS Qty: 30 0RF Eliquis 5 mg tablet 5 mg PO BID Qty: 60 0RF Discontinued citalopram [Celexa] 10 mg tablet 10 mg PO DAILY flecainide 100 mg tablet 100 mg PO Q12H topiramate [Topamax] 25 mg tablet 25 mg PO BID Referrals / Follow Up: Soheila Fry [Other] - 11/04/24 1:30 pm [facility] [Other] - 10/31/24 2:45 pm (Will see Arabella) Consuelo Lazar DO [Primary Care Provider] - 10/28/24 1:15 pm Zurdo Guzman MD [Med Staff - Active Staff] - 10/29/24 1:15 pm (Will see CHANTAL Carrizales) Disposition Disposition (needs filled in before D/C Order can be placed): Home Health Service Charges/Coding Visit Charges Inpatient E&M: 12353 Disch Hosp >30min Hospital Course RU Operations None Procedures Transthoracic echo (Transthoracic echocardiogram done at [facility] showed left ventricular size and thickness to be within normal limits. The ejection fraction was 65% and there were no wall motion abnormalities. The right ventricle was normal size with normal systolic function. The left atrium was m) Summary of Care Provided Minutes Spent on Discharge: 55 Hospital Course: RAJWINDER FLORES, is a 54 YO F with a PMH of hyperlipidemia (was on Crestor 10 mg), paroxysmal atrial fibrillation (was not on an AC because of vaginal bleeding in the past when she was perimenopausal), depression/anxiety, asthma, allergic rhinitis and obesity who presented to [facility] on 09/11/24 with complaints of Left side weakness. She was transferred to [facility] due to concern for LVO. At presentation to [facility] her NIH was 2. She had a repeat CTA of the H&N that showed diffuse moderate stenosis involving the petrous and cavernous segments of the right internal carotid artery with a large filling defect in the cavernous segment and occlusion involving the supraclinoid segment. There was no additional stenosis or occlusion in the anterior or posterior intracranial circulation. The presumption was that she had a embolic CVA due to PAF in a pt who was not on anticoagulation. There was no high-grade stenosis or occlusion in the neck. CT perfusion showed no perfusion evidence for core infarct or ischemic penumbra. She was admitted to the intensive care unit. She was placed on ASA and Plavix. Crestor was continued but. the calculated LDL was 92 and the dose was increased from 10 mg to 40 mg. She was placed on a heparin drip and later transitioned to Eliquis. She had been on Flecainide for about 1 month and this was continued. Her condition deteriorated following admission and she was take to IR for possible carotid dissection. No dissection was noted but, there was persistent thrombus in the ophthalmic segment of the right internal carotid artery with pseudo occlusion of the proximal right internal carotid artery. The procedure was aborted because there was adequate contralateral intracranial perfusion. CTA later in the day (following IR) demonstrated the clot had migrated to the right M1 and the R ICA was patent. There was evidence of a R MCA infarct. Thrombectomy was contraindicated due to increased risk of perfusion injury greater than 24 hours from last known well. MRI of the brain on 09/12/2024 showed acute infarcts in the right hippocampus, right internal capsule and caudate nucleus. There was no hemorrhagic transformation. There were additional small acute cortical infarcts in the left inferior parietal lobule which appeared somewhat older than infarcts on the right. She had AF with HR's up to the 150's and she was started on IV Metoprolol 2.5 mg Q6H. She had bradycardia and hypotension requiring pressors. She tells me that she was taking Lopressor 12.5 mg BID at [facility]. This was not listed on the medications at [place]. Transthoracic echocardiogram showed the left ventricular size to be normal with normal wall thickness. The ejection fraction was estimated at 65% and there were no wall motion abnormalities. The right ventricle was normal size with normal systolic function. The left atrium was mildly dilated. There was no PFO on the bubble study. Pt was transferred to [facility] acute rehab on 09/18/24 for 3 hours of therapy daily to restore function/independence at or near her level prior to the recent stroke. she was transferred on flecainide with no medication to block the AVN and control HR when she is in AF. Soon after arriving on rehab the HR was in the 130's and EKG showed Atrial fib/flutter. She was given Lopressor and became hypotensive but, the HR was still high. She was transferred to the telemetry unit and cardiology consult was obtained. She converted to NSR after transfer after receiving Cardizem and Amiodarone IV. Cariology recommended continuing Flecainide and starting 50 mg of Lopressor BID. She was started on 25 mg BID and was bradycardic so the dose was decreased to 12.5 mg BID. She was bradycardic and lightheaded on this dose and when she was transferred back to rehab the Lopressor had been discontinued and she was once again only on Flecainide. She had HR's that ranged from 32-132 while on rehab. Flecainide was discontinued and she was started on Amiodarone. She was bradycardic in the 30'sw at times and BP was marginal. The dose of the amiodarone was decreased to 100 mg daily but, she had bursts of AF RVR. The dose was increased to 100 mg BID and she is tolerating this dose at the time of DC. A 24 hour holtor was obtained the 24 hours prior to DC from rehab and the the average heart rate was 79 bpm and normal sinus rhythm with periods of paroxysmal atrial fibrillation. The minimum heart rate was 58 bpm. The maximum heart rate was 179 bpm and the patient reported having palpitations. 16.3% of the total QRS complexes revealed atrial fibrillation. She is going to follow up with Dr. Langley following discharge from rehab to manage the antiarrhythmics. Rajwinder had been taking citalopram for several years for chronic depression but, this was really not effective in controlling the depression/anxiety. She was somnolent during the day and was sleeping a good portion of the day. Citalopram was discontinued and she was placed on Wellbutrin XL 150 mg daily. She tolerated this medication with no adverse side effects and she was more alert during the day and able to participate in therapy. After 10 days the dose was increased to 300 mg daily. BP actually improved after she was started on Wellbutrin. Cortisol, TSH and T4 were all normal. She had no seizure activity. She continued to be anxious and the closer we got to DC the worse the anxiety got. She was started on Buspar and this has helped a lot. When she first arrived on rehab she was not sleeping and she was started on Trazodone which was effective. With the addition of Buspar recently and better control of anxiety she may no longer need Trazodone going forward. Rajwinder has never had any psychotherapy but she has been depressed for many years. We discussed going to counseling and how medication and therapy work much better together than either alone and she was agreeable to pursing counseling. She has an appt to follow up with mental health services at [facility] the week following DC from rehab. Rajwinder worked hard on rehab and has done very well. She is ambulating with a quad cane at DC from rehab and she now has some tone in the LUE. She has some contraction of the L trapezius, L triceps and the L biceps. Still not about to make a fist or squeeze my fingers. Not able to lift the LUE off the bed or move it side to side yet but she is able to pull the shoulder back some. She developed biceps tendonitis on the left when she started getting some hypertonicity of the muscles of the LUE. This was treated with local treatment including an arthritis pain cream (contains baclofen, Voltaren gel and lidocaine) and a Lidocaine patch. the pain is better at DE and she did not feel she needed any additional treatment. Rajwinder's family came in for training prior to DE. They felt confident they could provide the assistance she still needs at home. She will have [facility] at [place] for PT/OT/SN/SANCHES/SW. Rajwinder was discharged home on 10/25/24. She has follow up appts already made for her. She was given a prescription to obtain a handicap parking placard and a letter was sent to human resources requesting a leave of absence starting 09/11/2024 and extending through 01/24/2025. She will be reassessed at that time for any additional leave that may be needed.
[2024-10-25 09:33] VITALS: BMI 32.6
--- NOTE | 2024-10-25 09:38 | CASEMGMT ---
Social Work SW provided pt with application and Dr smith for kera castro to provide to her [facility]. Taylor Shea ASSOCIATE [employer]IV[employer]OL PANEL TESTER
--- NOTE | 2024-10-25 16:00 | NURSING ---
Discharge instructions given to patient and family and verbalized understanding.
== END 2024-10-25 16:00 | disposition home health service (06) | DRG 57 ==
PROVIDERS: Admitting Provider Internal Medicine; PCP Internal Medicine; Visit Provider Internal Medicine
DX: I69.354 Hemiplegia and hemiparesis following cerebral infarction affecting left non-dominant side (principal); I49.5 Sick sinus syndrome; Z51.5 Encounter for palliative care; I69.319 Unspecified symptoms and signs involving cognitive functions following cerebral infarction; I48.0 Paroxysmal atrial fibrillation; E86.0 Dehydration; J45.20 Mild intermittent asthma, uncomplicated; F32.A Depression, unspecified; E66.9 Obesity, unspecified; I69.322 Dysarthria following cerebral infarction; I95.9 Hypotension, unspecified; E78.00 Pure hypercholesterolemia, unspecified; I69.392 Facial weakness following cerebral infarction; I95.1 Orthostatic hypotension; F41.9 Anxiety disorder, unspecified; M75.22 Bicipital tendinitis, left shoulder; Z79.51 Long term (current) use of inhaled steroids; G89.29 Other chronic pain; Z79.01 Long term (current) use of anticoagulants; Z68.32 Body mass index [BMI] 32.0-32.9, adult; R00.2 Palpitations; R00.0 Tachycardia, unspecified; G47.00 Insomnia, unspecified; Z78.0 Asymptomatic menopausal state; Z79.899 Other long term (current) drug therapy; Z68.31 Body mass index [BMI] 31.0-31.9, adult
CPT/HCPCS: 36415; 80048; 80053; 80061; 81001; 82274; 82533; 83735; 84100; 84484; 85014; 85018; 85025; 85027; 87086; 87651; 92507; 92523; 93005; 93306; 94640; 94668; 94762; 97110; 97112; 97116; 97129; 97130; 97140; 97162; 97163; 97165; 97166; 97168; 97530; 97535; 97802; 97803; A4216; J0834

== ENCOUNTER 2024-09-19 12:12 | Inpatient (IN) | payer OTHER, SELFPAY ==
[2024-09-19] VITALS (13 sets, daily range): BP systolic 88–112; BP diastolic 64–85; PULSE 50–126; RESP 16–22; TEMP 36.2–37.7; O2SAT 94–100; BMI 31.6
--- NOTE | 2024-09-19 12:11 | HP.PCM.HOS_ITS ---
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 Patient apparently did not suffer an embolic CVA on 09/11/2024 transferred to [facility] with concern for large vessel occlusion patient however did not require thrombectomy. Patient was stabilized and transferred to the inpatient rehab unit. Patient upon arrival was found to have labile heart rates going as high as 150. Patient is on flecainide for rate control however heart rate was elevated despite the flecainide. The hospitalist on-call during the night was notified did give additional doses of beta-blockers without much improvement. Case was discussed with the attending at the inpatient rehab unit decision was made to transfer the patient to the progressive care unit for inpatient management of her heart rate [facility] Medical History (Updated 09/19/24 @ 11:[address] Maureen Costello, DO) Obesity (BMI 30.0-34.9) Asthma Anxiety and depression History of heavy vaginal bleeding Paroxysmal atrial fibrillation Glucose intolerance Hyperlipidemia Home Medications ?Medication ?Instructions ?Recorded ?Last Taken ?Type albuterol sulfate 90 mcg/actuation 2 puff inhalation Q 6H PRN SOB, 09/18/24 Unknown History aerosol inhaler Wheezing apixaban 5 mg tablet (Eliquis) 5 mg PO BID Stroke 08/0709/18/24 History citalopram 10 mg tablet (Celexa) 10 mg PO DAILY depres emil 09/18/24 09/18/24 History flecainide 100 mg tablet 100 mg PO Q12H arrhythmias 0 09/18/24 09/18/24 History fluticasone 250 mcg-salmeterol 50 1 inh inhalation Q12 H lungs 09/18/24 Unknown History mcg/dose blistr powdr for inhalation (Advair Diskus) montelukast 10 mg tablet 10 mg PO QHS allergies 09/1809/17/24 History (Singulair) rosuvastatin 40 mg tablet (Crestor) 40 mg PO QHS carlos sterol 09/18/24 09/17/24 History topiramate 25 mg tablet (Topamax) 25 mg PO BID migrain es 09/18/24 09/18/24 History Allergy/AdvReac Type Severity Reaction Status Date / Time Penicillins Allergy Unknown Hives Verified 09/18/24 13:32 Family History (Updated 09/19/24 @ 10:[address] Maureen Costello DO) Mother , with dementia at 78 No problems noted. Father , at 78 YOA due to complications of pancreatectomy for multiple pancreatic cysts No problems noted. Sister Diabetes Kidney disease Social History (Updated 09/19/24 @ 10:[address] Maureen Costello DO) household members: spouse and other details: name is Matthew housing: other details: 2 story house number of children: 2 Smoking Status: Never smoker alcohol intake: current alcohol intake frequency: holidays/special occasions only ROS ROS Narrative GENERAL: denies fever, chills, HEENT: headache, sinus congestion RESPIRATORY: denies cough, sputum production, CARDIAC: , palpitations, denies chest pain orthopnea, PND GASTROINTESTINAL: denies abdominal pain, nausea, GENITOURINARY: denies dysuria, urgency, frequency, heamaturia EXTREMITY: denies swelling MUSCULOSKELETAL: denies current joint pain or tenderness NEUROLOGIC: Weakness involving the left side HEMATOLOGIC: denies easy bruising and/or hemorrhage INTEGUMENT: denies rashes PSYCHIATRIC: denies suicidal or homicidal ideation Physical Exam Narrative GENERAL: In no apparent distress HEENT: Atraumatic; normocephalic EYES; Anicteric, Normal Conjunctiva NECK; supple, normal thyroid, RESPIRATORY: Diminished to auscultation CARDIOVASCULAR: Irregularly irregular, tachycardic GI: soft, normoactive bowel sounds, : No Renal angle tenderness; EXTREMITIES: No edema, no clubbing, MUSCULOSKELETAL: no muscle wasting NEURO: Awake; left-sided hemiparesis SKIN: No Rash PSYCH; tearful Assessment & Plan Assessment/Plan (1) Paroxysmal atrial fibrillation: (2) Left hemiplegia: (3) Head pain cephalgia: QUALIFIERS: Headache type: unspecified Headache chronicity pattern: chronic headache Intractability: not intractable Qualified Code(s): R51.9 - Headache, unspecified; G89.29 - Other chronic pain PLAN: Plan Patient is a 54-year-old lady with recent right MCA stroke with significant left-sided deficit sent from the inpatient rehab unit to the PCU with A-fib with RVR 1. Paroxysmal A-fib with RVR ? Patient is already on antiarrhythmic therapy with flecainide. Went into A-fib with RVR did receive beta-blockers with subsequent hypotension necessitating patient being transferred to the progressive care unit. Patient has been admitted to monitored bed did continue the flecainide as well as Lopressor. Patient did receive a bolus of Cardizem with blood pressure dropping to the 80s. Ordered 2D echo and cardiology consultation obtained. Case discussed with Dr. Friend patient be started on amiodarone drip after bolus 2. Recent right MCA embolic CVA ? With significant left-sided deficit. Patient remains on guideline directed medical therapy including antiplatelets and statin therapy 3. Cephalgia ? Following patient CVA patient was placed on Topamax continue 4. Depression ? Patient is on Celexa did continue 5. Mild intermittent asthma ? Patient is on Advair as well as albuterol as needed continued 6. Allergic rhinitis ? Patient is on montelukast did continue home dose 7. DVT prophylaxis ? Patient already on systemic anticoagulation with apixaban Time spent in the patient's overall evaluation,decision-making process, review of diagnostic data, adjustment of management, discussion with other providers, nursing nursing and ancillary staff involved in patient's care documentation, 75 Minutes Charges/Coding Visit Charges Inpatient E&M: 87654 Init Hosp L3
--- NOTE | 2024-09-19 12:13 | ECHOD_ITS ---
Reason For Study Reason For Study: AFIB Procedure This was a 2D Doppler, Color Flow transthoracic echocardiogram. Exam performed portable in patient room. Left Ventricle Normal LV size. The estimated ejection fraction is 60 %. Stage 3 diastolic dysfunction. Right Ventricle Normal RV size. Normal systolic function. Atria Normal left atrium. Normal right atrium. Mitral Valve The mitral valve is structurally normal. No prolapse or stenosis seen. Mild (1+) mitral valve insufficiency. Tricuspid Valve Normal tricuspid valve. Mild (1+) tricuspid valve insufficiency. Pulmonary artery systolic pressure is 23 mmHg. Aortic Valve Trisinus/trileaflet aortic valve. Pulmonic Valve The pulmonic valve is not well visualized. Great Vessels Normal sized aortic root. Pericardium/Pleural No pericardial effusion. MMode/2D Measurements & Calculations LVIDd: 4.4 cm IVSd: 0.69 cm Ao root diam: 2.9 cm LVIDs: 3.5 cm LVPWd: 0.95 cm FS: 20.4 % LAV(MOD-sp4): 35.2 ml LVAd ap4: 21.6 cm2 SV(MOD-sp4): 41.0 ml LVLd ap4: 6.7 cm SI(MOD-sp4): 22.8 ml/m2 EDV(MOD-sp4): 62.7 ml EDV(sp4-el): 59.2 ml LVAs ap4: 11.5 cm2 LVLs ap4: 5.3 cm ESV(MOD-sp4): 21.7 ml ESV(sp4-el): 21.3 ml EF(MOD-sp4): 65.4 % EF(sp4-el): 64.0 % SV(sp4-el): 37.9 ml LA A4 area: 14.0 cm2 LA dimension(2D): 3.1 cm RA A4 area: 9.6 cm2 Time Measurements MV dec time: 0.20 sec Doppler Measurements & Calculations MV E max tom: 95.0 cm/sec Lat Peak E' Tom: 13.9 cm/sec Med Peak E' Tom: 9.3 cm/sec MV A max tom: 29.2 cm/sec E/E' lat: 6.8 E/E' med: 10.3 MV E/A: 3.2 Ao V2 max: 91.0 cm/sec LV V1 max: 102.4 cm/sec MV dec slope: 470.3 cm/sec2 Ao max P.3 mmHg LV V1 max P.2 mmHg Ao V2 mean: 63.6 cm/sec LV V1 mean P.8 mmHg Ao mean P.9 mmHg LV V1 mean: 59.9 cm/sec Ao V2 VTI: 16.7 cm LV V1 VTI: 24.1 cm AV (velocity ratio): 1.4 PA V2 max: 64.8 cm/sec TR max tom: 226.1 cm/sec PA V2 mean: 49.3 cm/sec TR max P.4 mmHg ECHO/Echo Complete Interpretation Summary The estimated ejection fraction is 60 %. Stage 3 diastolic dysfunction. Mild (1+) mitral valve insufficiency. Mild (1+) tricuspid valve insufficiency. Ordering Physician: Nagi Peñaloza Referring Physician: Nagi Peñaloza Performed By: Cynthia Ortiz RCS
[2024-09-19] MEDS: 0.9% Normal Saline (1000mL) 1,000 ML 100 ML IV (12:49)
[2024-09-19] MEDS: Albuterol 2.5 MG/3 ML VIAL.NEB. INHALATION ×2 (13:20→20:37)
[2024-09-19] MEDS: Amiodarone 150 MG in Dextrose 5%-Water (100mL Bag) 100 ML 600 MG IV BOLUS (13:51)
[2024-09-19 13:57] LABS: Hematocrit 36.2 % (37-47); Hemoglobin 12.1 g/dL (12.0-15.0); Mean Corp Hgb Conc 33.4 g/dL (32-36); Mean Corpuscular Volume 84.4 fL (81-99); Mean Platelet Vol. 9.9 fl (6.2-12.0); Platelet Count 335 K/mm3 (150-450); RBC Distribution Width CV 14.6 % (11.6-14.6); RBC Distribution Width SD 44.4 fl (35.1-43.9); Red Blood Count 4.29 M/mm3 (4.2-5.4); White Blood Count 11.1 K/mm3 (4.4-11.0)
[2024-09-19] MEDS: Amiodarone 360 MG in Dextrose 5% Viaflo Bag 192.8 ML 33.3 MG CONT INF (14:09)
[2024-09-19 14:40] LABS: Anion Gap 14 (5-15); BUN 16 mg/dL (4-19); BUN/Creat Ratio 23.0 RATIO (10-20); Calcium,Total 8.8 mg/dL (7.6-11.0); Carbon Dioxide 18.4 mmol/L (21.0-32.0); Chloride 109 mmol/L (98-108); Estimated Creatinine Clearance 92.60 ml/min (50-250); Glucose 123 mg/dL (70-99); Magnesium 2.2 mg/dL (1.5-2.2); Potassium 4.0 mmol/L (3.3-5.1)
--- NOTE | 2024-09-19 15:29 | PCM.CONS.C ---
Assessment & Plan Assessment/Plan (1) Paroxysmal atrial fibrillation: PLAN: Patient has a history of paroxysmal atrial fibrillation. Her beta-robert had been discontinued. I would recommend starting a beta-robert with Lopressor 25 mg twice a day and resume her flecainide. She had been given intravenous amiodarone x 1 and she has converted back to sinus rhythm. She will continue anticoagulation with Eliquis. I will sign off at this time unless further issues arise. HPI Consult Data Date of Consult: 09/19/24 HPI Narrative HPI Narrative: MAL FLORES, is a 54 F who presents to the progressive care unit after developing atrial fibrillation with a rapid ventricular response rate in the rehabilitation unit. I was called to assist with management. She does have a history of a recent right middle cerebral artery cerebrovascular accident with significant left-sided hemiplegia who was transferred from [facility] to our inpatient rehabilitation unit. Patient was noted to have labile heart rates which was new for her. She had been on flecainide and possibly a beta-orbert but it appears that the beta-robert had been discontinued and then developed elevated heart rate. She denies any chest pain or paroxysmal nocturnal dyspnea pedal edema no neck arm or jaw discomfort suggest angina. [facility], [facility] Medical History (Updated 09/19/24 @ 11:[address] Maureen Costello, ) Obesity (BMI 30.0-34.9) Asthma Anxiety and depression History of heavy vaginal bleeding Paroxysmal atrial fibrillation Glucose intolerance Hyperlipidemia Home Medications ?Medication ?Instructions ?Recorded ?Last Taken ?Type albuterol sulfate 90 mcg/actuation 2 puff inhalation Q6H PRN SOB, 09/18/24 Unknown History aerosol inhaler Wheezing apixaban 5 mg tablet (Eliquis) 5 mg PO BID Stroke 09/18/24 09/18/24 History citalopram 10 mg tablet (Celexa) 10 mg PO DAILY depression 09/18/24 09/18/24 History flecainide 100 mg tablet 100 mg PO Q12H arrhythmias 09/18/24 09/18/24 History fluticasone 250 mcg-salmeterol 50 1 inh inhalation Q12H lungs 09/18/24 Unknown History mcg/dose blistr powdr for inhalation (Advair Diskus) montelukast 10 mg tablet 10 mg PO QHS allergies 09/18/24 09/17/24 History (Singulair) rosuvastatin 40 mg tablet (Crestor) 40 mg PO QHS cholesterol 09/18/24 09/17/24 History topiramate 25 mg tablet (Topamax) 25 mg PO BID migraines 09/18/24 09/18/24 History Allergy/AdvReac Type Severity Reaction Status Date / Time Penicillins Allergy Unknown Hives Verified 09/18/24 13:32 Family History Mother , with dementia at 78 No problems noted. Father , at 78 YOA due to complications of pancreatectomy for multiple pancreatic cysts No problems noted. Sister Diabetes Kidney disease Social History household members: spouse and other details: name is Matthew housing: other details: 2 story house number of children: 2 Smoking Status: Never smoker alcohol intake: current alcohol intake frequency: holidays/special occasions only ROS Constitutional Constitutional: Denies fever(s) or weight loss Eyes Eyes: Reports systems reviewed and no addt'l complaints, except as documented ENT HEENT: Reports systems reviewed and no addt'l complaints, except as documented Cardiovascular Cardiovascular: Denies chest pain at rest, chest pain with activity, dyspnea at rest, dyspnea on exertion, edema, palpitations or paroxysmal nocturnal dyspnea Respiratory/Chest Respiratory/Chest: Denies dyspnea on exertion, productive cough, shortness of breath at rest or shortness of breath with exertion Gastrointestinal Gastrointestinal: Denies change in bowel habits, nausea, vomiting or weight changes Genitourinary Genitourinary: Denies difficulty urinating Musculoskeletal Musculoskeletal: Denies joint stiffness or muscle weakness Integumentary Integumentary: Denies lesions Neurologic Neurologic: Denies dizziness or syncope Psychiatric Psychiatric: Denies anxiety Endocrine Endocrinology: Denies excessive sweating or fatigue Hematologic/Lymphatic Hematologic/Lymphatic: Denies anemia Allergic/Immunologic Allergic/Immunologic: Denies seasonal rhinorrhea Physical Exam Const alert, oriented x3 and no apparent distress General Appearance: cooperative HEENT hearing grossly normal bilaterally Head and Scalp: atraumatic Eyes EOMs intact bilaterally Neck General: normal visual inspection Chest inspection of chest normal and palpation of chest normal Resp normal respiratory effort Auscultation: clear to auscultation bilaterally Cardio regular rate, regular rhythm, S1 normal heart sound and S2 normal heart sound Jugular Venous Distention: JVD GI normal to inspection, nondistended, normoactive bowel sounds Extremity normal capillary refill and no pedal edema Peripheral Pulses: Yes pulses 2+ throughout and femoral pulses present Skin no rashes or lesions noted Neuro oriented x3 and CN's II-XII intact bilaterally Psych Appearance: grossly normal and appropriate Risk Stratification Risk Stratification Applicable: No Objective Data Vital Signs: Vital Signs Temp Pulse Resp BP Pulse Ox O2 Del Method 97.1 F L 55 L 18 101/66 98 Room Air 09/19/24 12:00 09/19/24 15:00 09/19/24 15:00 09/19/24 15:00 09/19/24 15:00 09/19/24 15:00 Oxygen Delivery Method Room Air Weight: 173 lb 4.533 oz Body Mass Index (BMI) 31.6 Intake & Output: Intake and Output for Last 24 Hours 09/17/24 09/18/24 09/19/24 23:59 23:59 23:59 Intake Total 139.09 / 139.09 Balance 139.09 / 139.09 Lab / Micro Data 09/19/24 13:12 09/19/24 13:12 Labs: Laboratory Results - last 24 hr 09/19/24 13:12: WBC 11.1 H, RBC 4.29, Hgb 12.1, Hct 36.2 L, MCV 84.4, MCH 28.2, MCHC 33.4, RDW Std Deviation 44.4 H, RDW Coeff of Royce 14.6, Plt Count 335, MPV 9.9, Sodium 141, Potassium 4.0, Chloride 109 H, Carbon Dioxide 18.4 L, Anion Gap 14, BUN 16, Creatinine 0.69 L, Estim Creat Clear Calc 92.60, Est GFR (MDRD) Non-Af 104, BUN/Creatinine Ratio 23.0 H, Glucose 123 H, Calcium 8.8, Magnesium 2.2 Cardiology Labs/Tests 09/19/24 13:12: WBC 11.1 H, RBC 4.29, Hgb 12.1, Hct 36.2 L, MCV 84.4, MCH 28.2, MCHC 33.4, Plt Count 335, MPV 9.9, Sodium 141, Potassium 4.0, Chloride 109 H, Carbon Dioxide 18.4 L, Anion Gap 14, BUN 16, Creatinine 0.69 L, Est GFR (MDRD) Non-Af 104, BUN/Creatinine Ratio 23.0 H, Glucose 123 H, Calcium 8.8, Magnesium 2.2 Rhythm: EKG: ECHO: Stress Test: Cardiac Cath: PCI: CT Surgery: Holter monitor: EPS: PPM: CXR: Chest CT Scan:
[2024-09-19] MEDS: Budesonide Respules 0.5 MG/2 ML AMPUL.NEB. INHALATION (20:38)
[2024-09-19] MEDS: APIXABAN 5 MG TABLET PO (21:30)
[2024-09-20] VITALS (12 sets, daily range): BP systolic 94–127; BP diastolic 52–101; PULSE 50–73; RESP 12–18; TEMP 36.6–37; O2SAT 96–100; BMI 32.4
[2024-09-20] MEDS: 0.9% Normal Saline (1000mL) 1,000 ML 100 ML IV (00:16)
[2024-09-20 06:15] LABS: Hematocrit 35.3 % (37-47); Hemoglobin 11.0 g/dL (12.0-15.0); Immature Granulocytes Count 0.050 X10^3/uL (0.0-0.0); Mean Corp Hgb Conc 31.2 g/dL (32-36); Mean Corpuscular Volume 89.1 fL (81-99); Mean Platelet Vol. 10.4 fl (6.2-12.0); NRBC Flagged by Analyzer 0 % (0-5); Platelet Count 300 K/mm3 (150-450); RBC Distribution Width CV 14.6 % (11.6-14.6); RBC Distribution Width SD 47.0 fl (35.1-43.9); Red Blood Count 3.96 M/mm3 (4.2-5.4); White Blood Count 10.2 K/mm3 (4.4-11.0)
[2024-09-20 06:44] LABS: Magnesium 2.1 mg/dL (1.5-2.2)
[2024-09-20 06:50] LABS: Anion Gap 14 (5-15); BUN 15 mg/dL (4-19); BUN/Creat Ratio 21.2 RATIO (10-20); Calcium,Total 9.1 mg/dL (7.6-11.0); Carbon Dioxide 16.9 mmol/L (21.0-32.0); Chloride 108 mmol/L (98-108); Estimated Creatinine Clearance 89.78 ml/min (50-250); Glucose 100 mg/dL (70-99); Potassium 4.1 mmol/L (3.3-5.1)
[2024-09-20] MEDS: Albuterol 2.5 MG/3 ML VIAL.NEB. INHALATION ×2 (07:04→20:49)
[2024-09-20] MEDS: Budesonide Respules 0.5 MG/2 ML AMPUL.NEB. INHALATION ×2 (07:04→20:49)
--- NOTE | 2024-09-20 07:24 | PN.HOSP_ITS ---
Reason for Visit Chief Complaint: Rapid heart rate Subjective Subjective Patient did receive amiodarone bolus converted back to sinus with heart rates in the 50s. Case was discussed with cardiology Dr. Friend recommended reinitiation of patient's flecainide. Plan is for patient to be assessed for discharge back to the inpatient rehab unit Objective Data Objective Data Vital Signs: Vital Signs Temp Pulse Resp BP Pulse Ox O2 Del Method 98.2 F 50 L 14 94/67 98 Room Air 09/20/24 04:00 09/20/24 04:00 09/20/24 04:00 09/20/24 04:00 09/20/24 04:00 09/20/24 04:09 Oxygen Delivery Method Room Air Weight: 80.4 kg Body Mass Index (BMI) 32.4 Intake & Output: Intake and Output for Last 24 Hours 09/18/24 09/19/24 09/20/24 23:59 23:59 23:59 Intake Total 1539.09 / 1639.09 100 / 100 Balance 1539.09 / 1639.09 100 / 100 Lab / Micro Data 09/20/24 05:29 09/20/24 05:29 Labs: Laboratory Results - last 24 hr 09/19/24 13:12: WBC 11.1 H, RBC 4.29, Hgb 12.1, Hct 36.2 L, MCV 84.4, MCH 28.2, MCHC 33.4, RDW Std Deviation 44.4 H, RDW Coeff of Royce 14.6, Plt Count 335, MPV 9.9, Sodium 141, Potassium 4.0, Chloride 109 H, Carbon Dioxide 18.4 L, Anion Gap 14, BUN 16, Creatinine 0.69 L, Estim Creat Clear Calc 92.60, Est GFR (MDRD) Non- Af 104, BUN/Creatinine Ratio 23.0 H, Glucose 123 H, Calcium 8.8, Magnesium 2.2 09/20/24 05:29: WBC 10.2, RBC 3.96 L, Hgb 11.0 L, Hct 35.3 L, MCV 89.1 D, MCH 27.8, MCHC 31.2 L D, RDW Std Deviation 47.0 H, RDW Coeff of Royce 14.6, Plt Count 300, MPV 10.4, Immature Gran % (Auto) 0.500, Neut % (Auto) 57.3, Lymph % (Auto) 27.3, Greenlee % (Auto) 9.7, Eos % (Auto) 4.5, Baso % (Auto) 0.7, Absolute Neuts (auto) 5.8, Absolute Lymphs (auto) 2.78, Nucleated RBC % 0, Sodium 138, Potassium 4.1, Chloride 108, Carbon Dioxide 16.9 L, Anion Gap 14, BUN 15, Creatinine 0.72, Estim Creat Clear Calc 89.78, Est GFR (MDRD) Non-Af 100, B UN/Creatinine Ratio 21.2 H, Glucose 100 H, Calcium 9.1, Phosphorus 3.6, Magnesium 2.1 Physical Exam Narrative GENERAL: In no apparent distress HEENT: Atraumatic; normocephalic EYES; Anicteric, Normal Conjunctiva NECK; supple, normal thyroid, RESPIRATORY: Diminished to auscultation CARDIOVASCULAR: Regular S1-S2 GI: soft, normoactive bowel sounds, : No Renal angle tenderness; EXTREMITIES: No edema, no clubbing, MUSCULOSKELETAL: no muscle wasting NEURO: Awake; left-sided hemiparesis SKIN: No Rash PSYCH; tearful Assessment & Plan Assessment/Plan (1) Paroxysmal atrial fibrillation: (2) Left hemiplegia: (3) Head pain cephalgia: QUALIFIERS: Headache chronicity pattern: chronic headache H eadache type: unspecified Intractability: not intractable Qualified Code(s): R 51.9 - Headache, unspecified; G89.29 - Other chronic pain PLAN: Plan Patient is a 54-year-old lady with recent right MCA stroke with significant left-sided deficit sent from the inpatient rehab unit to the PCU with A-fib with RVR 1. Paroxysmal A-fib with RVR ? Patient is already on antiarrhythmic therapy with flecainide. Went into A-fib with RVR did receive beta-blockers with subsequent hypotension necessitating patient being transferred to the progressive care unit. Patient has been admitted to monitored bed did continue the flecainide as well as Lopressor. Patient did receive a bolus of Cardizem with blood pressure dropping to the 80s. Ordered 2D echo and cardiology consultation obtained. Case discussed with Dr. Friend patient be started on amiodarone drip after bolus ? 09/20/2024; Patient did receive amiodarone bolus converted back to sinus with heart rates in the 50s. Case was discussed with cardiology Dr. Friend recommended reinitiation of patient's flecainide. Plan is for patient to be assessed for discharge back to the inpatient rehab unit. With patient having relatively low blood pressure patient Lopressor dose was adjusted from 25 mg twice daily to 12.5 mg twice daily. Also ordered for orthostatic checks. 2. Recent right MCA embolic CVA ? With significant left-sided deficit. Patient remains on guideline directed medical therapy including antiplatelets and statin therapy 3. Cephalgia ? Following patient CVA patient was placed on Topamax continue 4. Depression ? Patient is on Celexa did continue 5. Mild intermittent asthma ? Patient is on Advair as well as albuterol as needed continued 6. Allergic rhinitis ? Patient is on montelukast did continue home dose 7. DVT prophylaxis ? Patient already on systemic anticoagulation with apixaban 8. Hypotension ? Per patient her blood pressure tends to run low. Patient was started on beta- blockers for rate control dose adjusted. Patient also did receive IV fluids. Ordered orthostatic checks Time spent in the patient's overall evaluation,decision-making process, review of diagnostic data, adjustment of management, discussion with other providers, nursing nursing and ancillary staff involved in patient's care documentation, 38 Minutes Charges/Coding Visit Charges Inpatient E&M: 59337 Subs Hosp L2
--- NOTE | 2024-09-20 10:00 | EKG12_ITS ---
Test Reason : AM EKG Blood Pressure : */* mmHG Vent. Rate : 55 BPM Atrial Rate : 55 BPM P-R Int : 158 ms QRS Dur : 100 ms QT Int : 494 ms P-R-T Axes : 55 42 39 degrees QTcB Int : [address] & T wave abnormality, consider anterior ischemia Abnormal ECG When compared with ECG of 19-Sep-2024 14:52, MANUAL COMPARISON REQUIRED DATA IS UNCONFIRMED Confirmed by KAREN HOPKINS ([id number]), web content editor JENNIFER ADRIAN ([id number]) on 09/23/2024 7:39:04 AM Referred By: Nagi Peñaloza Confirmed By: KAREN HOPKINS
[2024-09-20] MEDS: APIXABAN 5 MG TABLET PO ×2 (11:33→22:38)
--- NOTE | 2024-09-20 13:22 | CHAPLAIN ---
Type of Pastoral Visit _x__ Initial Visit ___ Follow-up Visit ___ On-call Visit ___ General Patient Visit ___ Spiritual Assessment ___ Family Conference ___ Bereavement ___ Rapid Response ___ Code Blue ___ Other (describe below) Pastoral Care Referral From _x__ Patient ___ Family ___ Nurse ___ Physician ___ Public Relations Consultant ___ Budget Officer ___ Other (describe below) Sacrament/Intervention _x__ Active listening ___ Anointing ___ Sikh ___ Bereavement ___ Communion ___ Irina exploration ___ ___ Life review _x__ Prayer ___ Reconciliation ___ Sacrament of Sick _x__ Supportive presence ___ Wedding ___ Other (describe below) Pastoral Comments patient and daughter are in the room; pt is able to answer questions and give information on her unexpected health issues; pt has left sided weakness and facial droop; pt then developed afib and is in PCU getting treatment; pt acknowledges the difficulties but expresses that He is not done with me yet and I take it as it comes; pt says that family gives support; pt identifies as a Baptism but not a strict one while asking for a prayer for her recovery; support, listening, affirming words given to pt
--- NOTE | 2024-09-20 14:14 | CASEMGMT ---
Addendum entered by Rupa Barajas 09/20/24 16:21: ALVARO VILLATORO udpated by Gilda from [facility], precert has been obtained and will review Monday and update SW/CM if patient is able to discharge over the weekend. Green sheet updated. Original Note: ALVARO VILLATORO in to discuss plans for at discharge. Patient wishes to return to [facility] at discharge. Patient had no further questions or concerns. ALVARO VILLATROO updatd by hospitalist that patient is medically ready to return, ALVARO VILLATORO updated Gilda at [facility] and requested precert be started. Green sheet placed on chart with instructions for [facility] discharge when precert obtained. CM will continue to follow this patient and plan for a safe dishcarge.
[2024-09-20] MEDS: NYSTATIN 500,000 UNIT/5 ML UDC 500000 UNIT PO (23:06)
[2024-09-21 03:07] VITALS: BMI 31.8
[2024-09-21 04:30] VITALS: BP 104/64; PULSE 54; RESP 16; TEMP 36.1; O2SAT 100
[2024-09-21 06:53] VITALS: PULSE 59; RESP 16; O2SAT 95
[2024-09-21] MEDS: Albuterol 2.5 MG/3 ML VIAL.NEB. INHALATION (06:53)
[2024-09-21] MEDS: Budesonide Respules 0.5 MG/2 ML AMPUL.NEB. INHALATION (06:53)
[2024-09-21 06:54] LABS: Hematocrit 33.9 % (37-47); Hemoglobin 11.0 g/dL (12.0-15.0); Immature Granulocytes Count 0.040 X10^3/uL (0.0-0.0); Mean Corp Hgb Conc 32.4 g/dL (32-36); Mean Corpuscular Volume 86.0 fL (81-99); Mean Platelet Vol. 10.0 fl (6.2-12.0); NRBC Flagged by Analyzer 0 % (0-5); Platelet Count 328 K/mm3 (150-450); RBC Distribution Width CV 14.3 % (11.6-14.6); RBC Distribution Width SD 45.3 fl (35.1-43.9); Red Blood Count 3.94 M/mm3 (4.2-5.4); White Blood Count 10.0 K/mm3 (4.4-11.0)
--- NOTE | 2024-09-21 07:11 | PN.HOSP_ITS ---
Reason for Visit Chief Complaint: Rapid heart rate Subjective Subjective Patient seen stable for discharge. Heart rate remains controlled. Blood pressure has also stabilized Objective Data Objective Data Vital Signs: Vital Signs Temp Pulse Resp BP Pulse Ox O2 Del Method 97 F L 59 L 16 104/64 95 Room Air 09/21/24 04:30 09/21/24 06:53 09/21/24 06:53 09/21/24 04:30 09/21/24 06:53 09/21/24 06:53 Oxygen Delivery Method Room Air Weight: 78.9 kg Body Mass Index (BMI) 31.8 Intake & Output: Intake and Output for Last 24 Hours 09/19/24 09/20/24 09/21/24 23:59 23:59 23:59 Intake Total 1539.09 / 1639.09 1620 / 1620 Output Total 800 / 1100 500 / 500 Balance 1539.09 / 1639.09 820 / 520 -500 / -500 Lab / Micro Data 09/21/24 06:45 09/21/24 06:45 Labs: Laboratory Results - last 24 hr 09/21/24 06:45: WBC 10.0, RBC 3.94 L, Hgb 11.0 L, Hct 33.9 L, MCV 86.0, MCH 27.9, MCHC 32.4, RDW Std Deviation 45.3 H, RDW Coeff of Royce 14.3, Plt Count 328, MPV 10.0, Immature Gran % (Auto) 0.400, Neut % (Auto) 68.1, Lymph % (Auto) 18.6 L, [place] % (Auto) 8.3, Eos % (Auto) 3.8, Baso % (Auto) 0.8, Absolute Neuts (auto) 6.8, Absolute Lymphs (auto) 1.86, Nucleated RBC % 0 Radiography Diagnostic Testing: Radiology Impression Echocardiogram 09/19/24 12:13 Interpretation Summary The estimated ejection fraction is 60 %. Stage 3 diastolic dysfunction. Mild (1+) mitral valve insufficiency. Mild (1+) tricuspid valve insufficiency. Ordering Physician: Nagi Peñaloza Referring Physician: Nagi Peñaloza Performed By: Cynthia Ortiz RCS Physical Exam Narrative GENERAL: In no apparent distress HEENT: Atraumatic; normocephalic EYES; Anicteric, Normal Conjunctiva NECK; supple, normal thyroid, RESPIRATORY: Diminished to auscultation CARDIOVASCULAR: Regular S1-S2 GI: soft, normoactive bowel sounds, : No Renal angle tenderness; EXTREMITIES: No edema, no clubbing, MUSCULOSKELETAL: no muscle wasting NEURO: Awake; left-sided hemiparesis SKIN: No Rash PSYCH; tearful Assessment & Plan Assessment/Plan (1) Paroxysmal atrial fibrillation: (2) Left hemiplegia: (3) Head pain cephalgia: QUALIFIERS: Headache chronicity pattern: chronic headache H eadache type: unspecified Intractability: not intractable Qualified Code(s): R 51.9 - Headache, unspecified; G89.29 - Other chronic pain PLAN: Plan Patient is a 54-year-old lady with recent right MCA stroke with significant left-sided deficit sent from the inpatient rehab unit to the PCU with A-fib with RVR 1. Paroxysmal A-fib with RVR ? Patient is already on antiarrhythmic therapy with flecainide. Went into A-fib with RVR did receive beta-blockers with subsequent hypotension necessitating patient being transferred to the progressive care unit. Patient has been admitted to monitored bed did continue the flecainide as well as Lopressor. Patient did receive a bolus of Cardizem with blood pressure dropping to the 80s. Ordered 2D echo and cardiology consultation obtained. Case discussed with Dr. Friend patient be started on amiodarone drip after bolus ? 09/20/2024; Patient did receive amiodarone bolus converted back to sinus with heart rates in the 50s. Case was discussed with cardiology Dr. Friend recommended reinitiation of patient's flecainide. Plan is for patient to be assessed for discharge back to the inpatient rehab unit. With patient having relatively low blood pressure patient Lopressor dose was adjusted from 25 mg twice daily to 12.5 mg twice daily. Also ordered for orthostatic checks. ? 09/21/2024; Patient seen stable for discharge. Heart rate remains controlled. Blood pressure has also stabilized 2. Recent right MCA embolic CVA ? With significant left-sided deficit. Patient remains on guideline directed medical therapy including antiplatelets and statin therapy 3. Cephalgia ? Following patient CVA patient was placed on Topamax continue 4. Depression ? Patient is on Celexa did continue 5. Mild intermittent asthma ? Patient is on Advair as well as albuterol as needed continued 6. Allergic rhinitis ? Patient is on montelukast did continue home dose 7. DVT prophylaxis ? Patient already on systemic anticoagulation with apixaban 8. Hypotension ? Per patient her blood pressure tends to run low. Patient was started on beta- blockers for rate control dose adjusted. Patient also did receive IV fluids. Ordered orthostatic checks Time spent in the patient's overall evaluation,decision-making process, review of diagnostic data, adjustment of management, discussion with other providers, nursing nursing and ancillary staff involved in patient's care documentation, 38 Minutes Charges/Coding Visit Charges Inpatient E&M: 61553 [facility] Hosp L2
[2024-09-21 07:46] LABS: Anion Gap 13 (5-15); BUN 19 mg/dL (4-19); BUN/Creat Ratio 23.6 RATIO (10-20); Calcium,Total 9.3 mg/dL (7.6-11.0); Carbon Dioxide 21.5 mmol/L (21.0-32.0); Chloride 104 mmol/L (98-108); Estimated Creatinine Clearance 80.02 ml/min (50-250); Glucose 112 mg/dL (70-99); Potassium 3.9 mmol/L (3.3-5.1)
[2024-09-21 09:13] VITALS: BP 112/60; PULSE 55; RESP 16; TEMP 36.8; O2SAT 98
[2024-09-21] MEDS: APIXABAN 5 MG TABLET PO (09:15)
[2024-09-21] MEDS: NYSTATIN 500,000 UNIT/5 ML UDC 500000 UNIT PO (09:15)
[2024-09-21 09:23] VITALS: PULSE 54
--- NOTE | 2024-09-21 10:02 | DS.PCM_ITS ---
Providers Date of Admission: 09/19/24 Date of Discharge: 09/21/24 Primary Care Physician: Dr. Consuelo Lazar, DO Consultations 09/19/24 13:13 Consult: Cardiology Routine Consulting Provider: [place] Friend Reason for Consult: AFIB WITH RVR EMERGENT Consult: No MD Notified: Yes Date Notified: 09/19/24 Time Notified: 13:13 Method of Notification: Verbal Reason For Visit: AFIB Diagnosis Discharge Diagnosis (1) Paroxysmal atrial fibrillation: Status: Acute Code(s): I48.0 - Paroxysmal atrial fibrillation (2) Left hemiplegia: Status: Acute Code(s): G81.94 - Hemiplegia, unspecified affecting left nondominant side (3) Head pain cephalgia: Status: Acute Code(s): R51.9 - Headache, unspecified Qualifiers: Headache type: unspecified Headache chronicity pattern: chronic headache Intractability: not intractable Qualified Code(s): R51.9 - Headache, unspecified; G89.29 - Other chronic pain Plan Patient is a 54-year-old lady with recent right MCA stroke with significant left-sided deficit sent from the inpatient rehab unit to the PCU with A-fib with RVR 1. Paroxysmal A-fib with RVR ? Patient is already on antiarrhythmic therapy with flecainide. Went into A-fib with RVR did receive beta-blockers with subsequent hypotension necessitating patient being transferred to the progressive care unit. Patient has been admitted to monitored bed did continue the flecainide as well as Lopressor. Patient did receive a bolus of Cardizem with blood pressure dropping to the 80s. Ordered 2D echo and cardiology consultation obtained. Case discussed with Dr. Friend patient be started on amiodarone drip after bolus ? 09/20/2024; Patient did receive amiodarone bolus converted back to sinus with heart rates in the 50s. Case was discussed with cardiology Dr. Friend recommended reinitiation of patient's flecainide. Plan is for patient to be assessed for discharge back to the inpatient rehab unit. With patient having relatively low blood pressure patient Lopressor dose was adjusted from 25 mg twice daily to 12.5 mg twice daily. Also ordered for orthostatic checks. ? 09/21/2024; Patient seen stable for discharge. Heart rate remains controlled. Blood pressure has also stabilized. Discontinued metoprolol since patient heart rate was in the mid 50s on discharge 2. Recent right MCA embolic CVA ? With significant left-sided deficit. Patient remains on guideline directed medical therapy including antiplatelets and statin therapy 3. Cephalgia ? Following patient CVA patient was placed on Topamax continue 4. Depression ? Patient is on Celexa did continue 5. Mild intermittent asthma ? Patient is on Advair as well as albuterol as needed continued 6. Allergic rhinitis ? Patient is on montelukast did continue home dose 7. DVT prophylaxis ? Patient already on systemic anticoagulation with apixaban 8. Hypotension ? Per patient her blood pressure tends to run low. Patient was started on beta- blockers for rate control dose adjusted. Patient also did receive IV fluids. Ordered orthostatic checks Time spent in the patient's overall evaluation,decision-making process, review of diagnostic data, adjustment of management, discussion with other providers, nursing nursing and ancillary staff involved in patient's care documentation, 38 Minutes Medications at Discharge Home Medications albuterol sulfate 90 mcg/actuation aerosol inhaler 2 puff inhalation Q6H PRN SOB, Wheezing 09/18/24 apixaban 5 mg tablet (Eliquis) 5 mg PO BID Stroke 09/18/24 citalopram 10 mg tablet (Celexa) 10 mg PO DAILY depression 09/18/24 flecainide 100 mg tablet 100 mg PO Q12H arrhythmias 09/18/24 fluticasone 250 mcg-salmeterol 50 mcg/dose blistr powdr for inhalation (Advair Diskus) 1 inh inhalation Q12H lungs 09/18/24 montelukast 10 mg tablet (Singulair) 10 mg PO QHS allergies 09/18/24 rosuvastatin 40 mg tablet (Crestor) 40 mg PO QHS cholesterol 09/18/24 topiramate 25 mg tablet (Topamax) 25 mg PO BID migraines 09/18/24 Physical Exam Narrative GENERAL: In no apparent distress HEENT: Atraumatic; normocephalic EYES; Anicteric, Normal Conjunctiva NECK; supple, normal thyroid, RESPIRATORY: Diminished to auscultation CARDIOVASCULAR: Regular S1-S2 GI: soft, normoactive bowel sounds, : No Renal angle tenderness; EXTREMITIES: No edema, no clubbing, MUSCULOSKELETAL: no muscle wasting NEURO: Awake; left-sided hemiparesis SKIN: No Rash PSYCH; tearful Weight / BMI Weight Weight: 78.9 kg Body Mass Index (BMI) 31.8 ABG / Lab / Microbiology Data 09/21/24 06:45 09/21/24 06:45 Laboratory: Laboratory Results - last 24 hr 09/21/24 06:45: WBC 10.0, RBC 3.94 L, Hgb 11.0 L, Hct 33.9 L, MCV 86.0, MCH 27.9, MCHC 32.4, RDW Std Deviation 45.3 H, RDW Coeff of Royce 14.3, Plt Count 328, MPV 10.0, Immature Gran % (Auto) 0.400, Neut % (Auto) 68.1, Lymph % (Auto) 18.6 L, [place] % (Auto) 8.3, Eos % (Auto) 3.8, Baso % (Auto) 0.8, Absolute Neuts (auto) 6.8, Absolute Lymphs (auto) 1.86, Nucleated RBC % 0, Sodium 139, Potassium 3.9, Chloride 104, Carbon Dioxide 21.5, Anion Gap 13, BUN 19, Creatinine 0.80, Estim Creat Clear Calc 80.02, Est GFR (MDRD) Non-Af 89, BUN/Creatinine Ratio 23.6 H, G lucose 112 H, Calcium 9.3 Radiography Diagnostic Testing: Radiology Impression Echocardiogram 09/19/24 12:13 Interpretation Summary The estimated ejection fraction is 60 %. Stage 3 diastolic dysfunction. Mild (1+) mitral valve insufficiency. Mild (1+) tricuspid valve insufficiency. Ordering Physician: Nagi Peñaloza Referring Physician: Nagi Peñaloza Performed By: Cynthia Ortiz RCS D/C Instructions DC O2, CPAP, BIPAP Needs Home O2 Discharge instructions: No Meaningful Use Info Meaningful Use Meaningful Use Diagnoses (Choose all that apply): None applicable Discharge Plan Admission Admit Date/Time: 09/19/24 12:12 Attending Provider: Nagi Peñaloza Primary Care Provider: Consuelo Lazar Discharge Orders/Prescriptions Prescriptions: Continued albuterol sulfate 90 mcg/actuation HFA aerosol inhaler 2 puff inhalation Q6H PRN (Reason: SOB, Wheezing) Eliquis 5 mg tablet 5 mg PO BID fluticasone propion-salmeterol [Advair Diskus] 250-50 mcg/dose blister with device 1 inh inhalation Q12H citalopram [Celexa] 10 mg tablet 10 mg PO DAILY rosuvastatin [Crestor] 40 mg tablet 40 mg PO QHS flecainide 100 mg tablet 100 mg PO Q12H montelukast [Singulair] 10 mg tablet 10 mg PO QHS topiramate [Topamax] 25 mg tablet 25 mg PO BID Referrals / Follow Up: Consuelo Lazar DO [Primary Care Provider] - Disposition Disposition (needs filled in before D/C Order can be placed): Inpatient Rehab Unit/Facility Charges/Coding Visit Charges Inpatient E&M: 02689 Disch Hosp >30min
--- NOTE | 2024-09-21 10:17 | CASEMGMT ---
Social Work SW spoke with Gilda in admissions for [facility] and pt is approved to return to [facility] today. Physician is aware and pt is ready for discharge. SW updated pt and pt is agreeable and will notified her spouse. RN updated and to arranged dc time. Disposition: Inpatient Rehab [facility]
== END 2024-09-21 10:47 | DRG 309 ==
PROVIDERS: Admitting Provider Internal Medicine; PCP Internal Medicine; Referring Provider Internal Medicine; Visit Provider Internal Medicine
DX: I48.0 Paroxysmal atrial fibrillation (principal); I69.354 Hemiplegia and hemiparesis following cerebral infarction affecting left non-dominant side; J45.20 Mild intermittent asthma, uncomplicated; F32.A Depression, unspecified; E78.5 Hyperlipidemia, unspecified; F41.9 Anxiety disorder, unspecified; I95.2 Hypotension due to drugs; J30.9 Allergic rhinitis, unspecified; I69.398 Other sequelae of cerebral infarction; G89.29 Other chronic pain; T46.1X5A Adverse effect of calcium-channel blockers, initial encounter; T44.7X5A Adverse effect of beta-adrenoreceptor antagonists, initial encounter; R51.9 Headache, unspecified; Z79.01 Long term (current) use of anticoagulants; Z79.51 Long term (current) use of inhaled steroids; Z79.899 Other long term (current) drug therapy
CPT/HCPCS: 36415; 80048; 83735; 84100; 85025; 85027; 93005; 93306; 94640; 94668; 97110; 97162; 97166; 97530; 97535; 97802

== ENCOUNTER → 2024-10-24 | Outpatient (CLI) | payer OTHER, SELFPAY | END | disposition home or self-care (01) | PROVIDERS: PCP Internal Medicine; Referring Provider Internal Medicine; Visit Provider Internal Medicine | DX: I48.91 Unspecified atrial fibrillation (principal) | CPT/HCPCS: 93225; 93226 ==

== ENCOUNTER → 2024-12-06 | Outpatient (CLI) | payer OTHER, SELFPAY | END | disposition home or self-care (01) | LOC: SL 20:05 | PROVIDERS: PCP Internal Medicine; Referring Provider Internal Medicine; Visit Provider Internal Medicine | DX: G47.10 Hypersomnia, unspecified (principal); I48.91 Unspecified atrial fibrillation; Z86.73 Personal history of transient ischemic attack (TIA), and cerebral infarction without residual deficits | CPT/HCPCS: 95810 ==